=== PATIENT | female | born 1960 | race Two or more races ===

== ENCOUNTER → 2020-03-14 15:36 | Outpatient (BNVA) | payer OTHER, SELFPAY | PROVIDERS: PCP Internal Medicine; Visit Provider Physician Assistant | DX: Z76.89 Persons encountering health services in other specified circumstances (principal) ==

== ENCOUNTER → 2020-03-15 08:09 | Outpatient (BNVA) | payer OTHER, SELFPAY | PROVIDERS: PCP Internal Medicine; Visit Provider Surgery | DX: Z76.89 Persons encountering health services in other specified circumstances (principal) ==

== ENCOUNTER 2020-03-26 09:46 | Outpatient (REF) | payer OTHER, SELFPAY ==
[2020-03-26 10:48] LABS: MANUAL DIFF FLAG NO
[2020-03-26 10:53] LABS: Basophils Absolute Auto 0.1 X10*3/uL (0.0-0.2); Basophils Percent Auto 0.8 % (0-2); Eosinophils Absolute Auto 0.2 X10*3/uL (0.0-0.4); Eosinophils Percent Auto 2.3 % (0-4); Hematocrit 40.6 % (37-47); Hemoglobin 12.9 g/dl (12.0-16.0); Imm Gran Abs Auto 0.02 X10*3/uL (0.00-0.03); Imm Gran Pct Auto 0.3 % (0.0-0.4); Lymphocytes Absolute Auto 2.6 X10*3/uL (1.2-4.9); Lymphocytes Percent Auto 33.3 % (20-40); Mean Corpuscular HGB Conc 31.8 g/dl (31.0-35.0); Mean Corpuscular Hemoglobin 27.2 pg (27.0-33.0); Mean Corpuscular Volume 85.7 fL (80-98); Mean Platelet Volume 11.6 fL (9.4-12.3); Monocytes Absolute Auto 0.6 X10*3/uL (0.1-1.2); Monocytes Percent Auto 7.5 % (2-11); Neutrophils Absolute Auto 4.3 X10*3/uL (2.0-8.3); Neutrophils Percent Auto 55.8 % (45-73); Platelet Count 223 X10*3/uL (160-400); Red Blood Count 4.74 X10*6/uL (4.20-5.50); Red Cell Distribution Width 15.1 % (11.0-16.0); White Blood Count 7.8 X10*3/uL (4.8-10.8)
--- NOTE | 2020-03-26 10:57 | ECG_ITS ---
Test Reason : MORBID OBESITY Blood Pressure : / mmHG Vent. Rate : 066 BPM Atrial Rate : 066 BPM P-R Int : 160 ms QRS Dur : 100 ms QT Int : 406 ms P-R-T Axes : 047 012 049 degrees QTc Int : 425 ms Normal sinus rhythm Normal ECG No previous ECGs available Referred By: Lux Ocampo Electronically Signed By:Kodi Millan
--- NOTE | 2020-03-26 11:07 | XR_ITS ---
EXAMINATION: XR CHEST CLINICAL INFORMATION: Obesity COMPARISON: None TECHNIQUE: 2 views of the chest were obtained. FINDINGS: The cardiac and mediastinal contours are normal. The lungs are clear. There is no pleural effusion or pneumothorax. There are degenerative changes of the spine. XR/XR chest 2V IMPRESSION: Unremarkable examination.
[2020-03-26 11:32] LABS: Estimated Average Glucose 123 mg/dL; Hemoglobin A1c % 5.9 %
[2020-03-26 11:44] LABS: Alanine Aminotransferase 26 U/L (0-31); Albumin Level 4.2 g/dL (3.5-5.0); Alkaline Phosphatase 67 U/L (39-117); Anion Gap 15 (12-20); Aspartate Amino Transferase 18 U/L (5-31); Bilirubin Total 0.3 mg/dL (0.0-1.0); Blood Urea Nitrogen 18 mg/dL (9-16); C Reactive Protein 1.25 mg/dL (< or = 0.50); Carbon Dioxide 27 mmol/L (22-29); Chloride 106 mmol/L (96-108); Cholesterol 168 mg/dL; Estimated Glomerular Filt Rate > 60; Glucose Random 96 mg/dL (60-115); HDL Cholesterol 52 mg/dL; LDL Cholesterol Calculated 106 mg/dl; Potassium 4.8 mmol/l (3.3-5.1); Sodium 143 mmol/L (135-145); Total Protein 7.2 g/dL (6.5-8.0); Triglycerides 52 mg/dL
[2020-03-26 12:01] LABS: Folate 13.4 ng/mL (> or = 4.0); Vitamin B12 628 pg/mL (200-900)
[2020-03-26 12:05] LABS: Ferritin 84 ng/mL (10-250); TSH reflex Free T4 2.64 mIU/mL (0.32-4.0); Vitamin D 25-OH Total 26.1 ng/mL (>30)
[2020-03-27 17:52] LABS: Insulin Level Total 24.9 uIU/mL
[2020-03-28 11:32] LABS: Calcium (PTHI) 8.9 mg/dL (8.6-10.4); PTHI 58 pg/mL (14-64)
[2020-03-28 16:17] LABS: H Pylori Breath Test NOT DETECTED (NOT DETECTED)
[2020-03-29 19:56] LABS: Zinc 89 mcg/dL (60-130)
[2020-03-30 23:56] LABS: Vitamin A 31 mcg/dL (38-98)
[2020-03-31 11:02] LABS: Vitamin B1 9 nmol/L (8-30)
== END 2020-03-26 09:47 | disposition home or self-care (01) ==
LOC: HO.LAB 09:46
PROVIDERS: Visit Provider Surgery
DX: E66.01 Morbid (severe) obesity due to excess calories (principal); E03.9 Hypothyroidism, unspecified; I10 Essential (primary) hypertension
CPT/HCPCS: 36415; 71046; 80053; 80061; 82306; 82607; 82728; 82746; 83013; 83036; 83525; 83970; 84425; 84443; 84590; 84630; 85025; 86140; 93005; 99211

== ENCOUNTER 2020-03-28 08:12 | Outpatient (REF) | payer OTHER, SELFPAY ==
--- NOTE | 2020-03-28 08:16 | US_ITS ---
EXAMINATION: US COMPLETE ABDOMEN WITH LIVER ELASTOGRAPHY CLINICAL INFORMATION: Morbid/severe obesity COMPARISON: None. TECHNIQUE: Real-time imaging of the abdominal viscera. Noninvasive ultrasound liver fibrosis assessment is performed using Rosa ElastPQ point quantification shear wave elastography (pSWE) with a 5 MHz transducer. Multiple elastography samples are obtained. FINDINGS: PANCREAS: The visualized pancreatic head and body are normal in appearance. The remainder of the pancreas is obscured from visualization by the overlying bowel gas. ABDOMINAL AORTA: The proximal, middle, and distal aortic segments are normal in caliber. INFERIOR VENA CAVA: Visualized portions are normal. LIVER: Liver echotexture is increased probably representing fatty infiltration. There is a focal hypoechoic area adjacent characteristic location of focal fatty sparing. The liver is normal in contour. No focal lesion or intrahepatic biliary duct dilatation. The right lobe measures 17 cm in length. The left lobe measures 13 cm in length. The main portal vein is patent with appropriate hepatopedal pedal flow. Shear wave elastography provides a median stiffness of 1.5 m/s (reference: normal median stiffness is 0.81 - 1.22 m/s). The IQR/median stiffness to assess sampling precision is 0.3 (reference: optimal IQR/median stiffness is under 0.3). GALLBLADDER: Normal. The gallbladder is physiologically distended without evidence of stones, sludge, polyps, wall thickening or pericholecystic fluid. COMMON BILE DUCT: Normal in caliber measuring 0.4 cm in diameter. RIGHT KIDNEY: Normal. No hydronephrosis. No renal calculi or focal parenchymal lesions. The kidney measures 13.3 cm in maximum dimension. LEFT KIDNEY: There are 3 left renal cysts, largest measuring 3 cm in the lower pole. No hydronephrosis. No renal calculi or focal parenchymal lesions. The kidney measures 11.6 cm in maximum dimension. SPLEEN: Normal. The spleen measures 9 cm in maximum dimension. FREE FLUID: None. US/US abdomen comp w elastography IMPRESSION: 1. Impression: echogenic liver probably representing fatty infiltration. Left renal cyst. Limited visualization of the tail the pancreas. 2. Elastography: Metavir score F2 to F3 suggestive of [id number] increased risk of developing liver fibrosis
--- NOTE | 2020-03-28 08:16 | FL_ITS ---
EXAMINATION: XR GI SERIES CLINICAL INFORMATION: Moderate/severe obesity due to excess calories. COMPARISON: None TECHNIQUE: Routine upper GI exam was performed. FINDINGS: Following oral administration of thick barium and effervescent granules there is normal propagation bolus from the oral cavity through the pharynx, esophagus into stomach without any evidence of obstruction or narrowing. No intraluminal filling defects seen. On placing patient supine and prone lying there is a small sliding hiatal hernia with large gastroesophageal reflux extending to the upper esophagus. The course, caliber and peristalsis of the stomach and the duodenal bulb is normal. The mucosal pattern of stomach and the duodenum is normal. FLUOROSCOPY TIME: 2.1 minutes DOSE AREA PRODUCT: 64.9 uGy-m2 (microgray-meter squared) FL/FL upper GI series IMPRESSION: Small sliding hiatal hernia with a large gastroesophageal reflux.
== END 2020-03-28 08:13 | disposition home or self-care (01) ==
LOC: HO.US 08:12
PROVIDERS: Visit Provider Surgery
DX: Z01.818 Encounter for other preprocedural examination (principal); E03.9 Hypothyroidism, unspecified; E66.01 Morbid (severe) obesity due to excess calories; K21.9 Gastro-esophageal reflux disease without esophagitis; I10 Essential (primary) hypertension
CPT/HCPCS: 74240; 76705; 76981

== ENCOUNTER → 2020-04-06 08:24 | Outpatient (BNVA) | payer OTHER, SELFPAY | PROVIDERS: Visit Provider Surgery ==

== ENCOUNTER → 2020-04-13 08:28 | Outpatient (BNVA) | payer OTHER, SELFPAY | PROVIDERS: Visit Provider Dietitian, Registered ==

== ENCOUNTER → 2020-04-25 08:21 | Outpatient (BNVA) | payer OTHER, SELFPAY | PROVIDERS: Visit Provider Dietitian, Registered ==

== ENCOUNTER → 2020-05-02 08:14 | Outpatient (BNVA) | payer OTHER, SELFPAY | PROVIDERS: Visit Provider Surgery ==

== ENCOUNTER → 2020-06-06 08:14 | Outpatient (BNVA) | payer OTHER, SELFPAY | PROVIDERS: Visit Provider Surgery ==

== ENCOUNTER → 2020-07-02 08:19 | Outpatient (BNVA) | payer OTHER, SELFPAY | PROVIDERS: Visit Provider Surgery ==

== ENCOUNTER → 2020-07-27 08:33 | Outpatient (BNVA) | payer OTHER, SELFPAY | PROVIDERS: Visit Provider Surgery ==

== ENCOUNTER → 2020-08-03 15:07 | Outpatient (BNVA) | payer OTHER, SELFPAY | PROVIDERS: Visit Provider Physician Assistant ==

== ENCOUNTER → 2020-08-15 08:29 | Outpatient (BNVA) | payer OTHER, SELFPAY | PROVIDERS: PCP Nurse Practitioner Family; Referring Provider Nurse Practitioner Family; Visit Provider Surgery | DX: Z01.818 Encounter for other preprocedural examination (principal); E66.01 Morbid (severe) obesity due to excess calories; Z68.41 Body mass index [BMI] 40.0-44.9, adult | CPT/HCPCS: 99212 ==

== ENCOUNTER → 2020-09-14 07:26 | Outpatient (BNVA) | payer OTHER, SELFPAY | PROVIDERS: PCP Nurse Practitioner Family; Visit Provider Surgery ==

== ENCOUNTER → 2020-10-05 13:45 | Outpatient (BNVA) | payer OTHER, SELFPAY | PROVIDERS: PCP Nurse Practitioner Family; Visit Provider Physician Assistant ==

== ENCOUNTER → 2020-10-22 07:22 | Outpatient (BNVA) | payer OTHER, SELFPAY | PROVIDERS: Visit Provider Surgery ==

== ENCOUNTER → 2020-10-30 09:02 | Outpatient (BNVA) | payer OTHER, SELFPAY | PROVIDERS: Visit Provider Physician Assistant ==

== ENCOUNTER 2020-11-01 07:45 | Inpatient (IN) | payer OTHER, SELFPAY ==
[2020-10-09 09:58] VITALS: BMI 41.3
[2020-10-30 09:14] LABS: MANUAL DIFF FLAG NO
[2020-10-30 09:22] LABS: Basophils Percent Auto 0.7 % (0-2); Eosinophils Absolute Auto 0.1 X10*3/uL (0.0-0.4); Eosinophils Percent Auto 1.9 % (0-4); Hematocrit 39.6 % (37-47); Hemoglobin 12.8 g/dl (12.0-16.0); Imm Gran Abs Auto 0.02 X10*3/uL (0.00-0.03); Imm Gran Pct Auto 0.3 % (0.0-0.4); Lymphocytes Percent Auto 34.4 % (20-40); Mean Corpuscular HGB Conc 32.3 g/dl (31.0-35.0); Mean Corpuscular Hemoglobin 27.5 pg (27.0-33.0); Mean Platelet Volume 10.7 fL (9.4-12.3); Monocytes Absolute Auto 0.4 X10*3/uL (0.1-1.2); Monocytes Percent Auto 7.3 % (2-11); Neutrophils Absolute Auto 3.2 X10*3/uL (2.0-8.3); Neutrophils Percent Auto 55.4 % (45-73); Platelet Count 209 X10*3/uL (160-400); Red Blood Count 4.66 X10*6/uL (4.20-5.50); Red Cell Distribution Width 15.2 % (11.0-16.0); White Blood Count 5.8 X10*3/uL (4.8-10.8)
[2020-10-30 09:26] LABS: INTERNATIONAL NORM RATIO 1.2 (0.9-1.1); Prothrombin Time 13.5 SEC (9.9-13.0)
[2020-10-30 09:39] LABS: Alanine Aminotransferase 24 U/L (0-31); Albumin Level 4.2 g/dL (3.5-5.0); Alkaline Phosphatase 66 U/L (39-117); Anion Gap 11 (12-20); Aspartate Amino Transferase 20 U/L (5-31); Bilirubin Total 0.7 mg/dL (0.0-1.0); Blood Urea Nitrogen 12 mg/dL (9-16); C Reactive Protein 1.04 mg/dL (< or = 0.50); Calcium 9.7 mg/dL (8.4-10.2); Carbon Dioxide 28 mmol/L (22-29); Chloride 105 mmol/L (96-108); Cholesterol 176 mg/dL; Creatinine Clr Calc Pharmacy 102.8; Estimated Glomerular Filt Rate > 60; Glucose Random 87 mg/dL (60-115); HDL Cholesterol 44 mg/dL; LDL Cholesterol Calculated 119 mg/dl; Potassium 4.6 mmol/L (3.3-5.1); Sodium 139 mmol/L (135-145); Total Protein 7.3 g/dL (6.5-8.0); Triglycerides 65 mg/dL
[2020-10-30 10:00] LABS: TSH reflex Free T4 2.02 uIU/mL (0.32-4.0)
[2020-10-30 14:28] LABS: Estimated Average Glucose 108 mg/dL; Hemoglobin A1c % 5.4 %
--- NOTE | 2020-10-31 08:55 | HO.ANESPROP2 ---
Documented by User: Rocio Weinberg NP 10/31/20 08:56 HPI - Anesthesia Eval Consult details Narrative: 60yo F for Gastrectomy Sleeve, EGD, Poss Diaphragmatic Hernia, Poss Ventral Hernia, Poss open PMFSH Active Problems Active Problems: All Active Problems (Updated 10/09/20 @ 10:04 by Emely Flowers, RN) Vitamin A deficiency (Acute) Adjustment disorder, unspecified (Acute) Obesity (Acute) BMI 39.0-39.9,adult (Acute) BMI 38.0-38.9,adult (Acute) DJD (degenerative joint disease) (Acute) Hypothyroidism (Acute) Hypertension (Acute) Non-insulin dependent diabetes mellitus (Acute) Morbid obesity (Acute) Past Medical History Medical History (Updated 10/09/20 @ 10:04 by Emely Flowers RN) COVID-19 COVID-19 vaccine series completed DJD (degenerative joint disease) Hypertension Hypothyroidism Morbid obesity Non-insulin dependent diabetes mellitus Family History Family History Mother No problems noted. Father No problems noted. Sister No problems noted. Sister No problems noted. Brother No problems noted. Brother No problems noted. Son No problems noted. Daughter Diabetes Obesity Daughter No problems noted. Surgical History Surgical History (Updated 10/09/20 @ 09:33 by Emely Flowers RN) History of tubal ligation Hx of section Hx of colonoscopy Hx of knee surgery Hx of tonsillectomy Social History Social History Are you a primary clinical manager home care to a significant other at home: No Do you presently have visiting nurse or other home services: No Alcohol intake: current Alcohol intake frequency: holidays/special occasions only Patient Tobacco Use Status: Never used Tobacco Use of substances other than those prescribed or required for medical reasons: No Have you been hit, kicked, punched, or otherwise hurt by someone within the past year? If so, by whom?: No Are you DNR?: No Advance Directives: No Advance Directives Information Provided: No Advance Directives on File: No Recently lost weight without trying: No How much weight loss: 24-33 pounds Eating poorly because of decreased appetite: No Nutrition screen score: 3 Nutrition Risks: No Nutritional Risk Patient : No Meds Allergies Allergy/AdvReac Type Severity Reaction Status Date / Time oxycodone [From Percocet] AdvReac Nausea and Verified 11/01/20 08:46 Vomiting Home Medications Medication Instructions Recorded Confirmed Last Taken Type levothyroxine 25 mcg capsule 25 mcg PO DAILY 03/15/20 11/01/20 11/01/20 06:00 History lisinopril 5 mg tablet 5 mg PO DAILY 03/15/20 10/22/20 11/01/20 07:30 History metformin 500 mg tablet 500 mg PO DAILY 03/15/20 10/22/20 11/01/20 07:30 History Exam Exam Date and Time: October 31, 2020 0855 Height,Weight and Vital Signs: Height 5 ft 4.5 in Weight 111.13 kg Pertinent Lab Results Pertinent Lab Results: Laboratory Tests 10/30/20 10/30/20 10/30/20 08:45 08:45 08:45 WBC 5.8 RBC 4.66 Hgb 12.8 Hct 39.6 MCV 85.0 MCH 27.5 MCHC 32.3 RDW 15.2 Plt Count 209 MPV 10.7 Immature Gran % (Auto) 0.3 Neut % (Auto) 55.4 Lymph % (Auto) 34.4 [place] % (Auto) 7.3 Eos % (Auto) 1.9 Baso % (Auto) 0.7 Lymph # (Auto) 2.0 [place] # (Auto) 0.4 Eos # (Auto) 0.1 Baso # (Auto) 0.0 Abs Immat Gran (auto) 0.02 Absolute Neuts (auto) 3.2 Absolute Nucleated RBC 0.000 Nucleated RBC % (auto) 0.0 PT 13.5 H INR 1.2 H APTT 37.0 Sodium 139 Potassium 4.6 Chloride 105 Carbon Dioxide 28 Anion Gap 11 L BUN 12 Creatinine 0.71 Estim Creat Clear Calc 102.8 Estimated GFR > 60 Random Glucose 87 Estimat Average Glucose Hemoglobin A1c % Calcium 9.7 D Total Bilirubin 0.7 AST 20 ALT 24 Alkaline Phosphatase 66 C-Reactive Protein 1.04 H Total Protein 7.3 Albumin 4.2 Triglycerides 65 Cholesterol 176 LDL Cholesterol, Calc 119 HDL Cholesterol 44 TSH 2.02 Blood Type Antibody Screen 10/30/20 10/30/20 08:45 08:45 WBC RBC Hgb Hct MCV MCH MCHC RDW Plt Count MPV Immature Gran % (Auto) Neut % (Auto) Lymph % (Auto) [place] % (Auto) Eos % (Auto) Baso % (Auto) Lymph # (Auto) [place] # (Auto) Eos # (Auto) Baso # (Auto) Abs Immat Gran (auto) Absolute Neuts (auto) Absolute Nucleated RBC Nucleated RBC % (auto) PT INR APTT Sodium Potassium Chloride Carbon Dioxide Anion Gap BUN Creatinine Estim Creat Clear Calc Estimated GFR Random Glucose Estimat Average Glucose 108 Hemoglobin A1c % 5.4 Calcium Total Bilirubin AST ALT Alkaline Phosphatase C-Reactive Protein Total Protein Albumin Triglycerides Cholesterol LDL Cholesterol, Calc HDL Cholesterol TSH Blood Type B Positive Antibody Screen NEGATIVE Narrative Narrative: EKG 03/2020 Vent. Rate : 066 BPM ? ? Atrial Rate : 066 BPM ?? P-R Int : 160 ms? QRS Dur : 100 ms ? ? QT Int : 406 ms ? ? ? P-R-T Axes : 047 012 049 degrees ?? QTc Int : 425 ms ? Normal sinus rhythm Normal ECG No previous ECGs available Assessment and Plan Assessment Anesthesia Assessment: Chart Reviewed Documented by User: Vashti Muñiz MD 11/01/20 09:19 [facility] Past Medical History Medical History (Updated 10/09/20 @ 10:04 by Emely Flowers RN) COVID-19 COVID-19 vaccine series completed DJD (degenerative joint disease) Hypertension Hypothyroidism Morbid obesity Non-insulin dependent diabetes mellitus Family History Family History Mother No problems noted. Father No problems noted. Sister No problems noted. Sister No problems noted. Brother No problems noted. Brother No problems noted. Son No problems noted. Daughter Diabetes Obesity Daughter No problems noted. Surgical History Surgical History (Updated 10/09/20 @ 09:33 by Emely Flowers RN) History of tubal ligation Hx of section Hx of colonoscopy Hx of knee surgery Hx of tonsillectomy Social History Social History Are you a primary clinical manager home care to a significant other at home: No Do you presently have visiting nurse or other home services: No Alcohol intake: current Alcohol intake frequency: holidays/special occasions only Patient Tobacco Use Status: Never used Tobacco Use of substances other than those prescribed or required for medical reasons: No Have you been hit, kicked, punched, or otherwise hurt by someone within the past year? If so, by whom?: No Are you DNR?: No Advance Directives: No Advance Directives Information Provided: No Advance Directives on File: No Recently lost weight without trying: No How much weight loss: 24-33 pounds Eating poorly because of decreased appetite: No Nutrition screen score: 3 Nutrition Risks: No Nutritional Risk Patient : No Meds Allergies Allergy/AdvReac Type Severity Reaction Status Date / Time oxycodone [From Percocet] AdvReac Nausea and Verified 11/01/20 08:46 Vomiting Home Medications Medication Instructions Recorded Confirmed Last Taken Type levothyroxine 25 mcg capsule 25 mcg PO DAILY 03/15/20 11/01/20 11/01/20 06:00 History lisinopril 5 mg tablet 5 mg PO DAILY 03/15/20 10/22/20 11/01/20 07:30 History metformin 500 mg tablet 500 mg PO DAILY 03/15/20 10/22/20 11/01/20 07:30 History Exam Airway Mallampati Class: III TM Dist: >3cm Neck ROM: Full
--- NOTE | 2020-10-31 19:56 | MHC.SHP ---
Pre-Procedural Eval Section A Date of Service: 10/31/20 The patient is an INPATIENT: Yes The History & Physical has been completed within 30 days and I have reviewed it.: No Section B Chief Complaint: Morbid Severe Obesity Relevant Family History (Specify if Yes): No Relevant Social History: None Present Medications: see Short Stay Collaborative assessment Medical History: No relevant PMH History of Previous Operations: No relevant previous surgery Allergies: Allergies Allergy/AdvReac Type Severity Reaction Status Date / Time oxycodone [From Percocet] AdvReac Nausea and Verified 10/22/20 13:58 Vomiting Review of Systems Sugical H&P ROS: Negative: Constitution, Cardiovascular, Respiratory, Neurological, Psychiatric, Hem-Onc, Allergic/Immunologic, Gastrointestinal, Genitourinary, Musculoskeletal, Integumentary, Endocrine and Eyes/Ears/Nose/Throat Exam Surgical H&P Exam: Normal: HEENT, Normal: Heart, Normal: Lungs, Normal: Extremities, Normal: Abdomen, Normal: Skin and Normal: Neurological Plan Diagnosis/Plan: Unchanged I have reviewed the history and physical and performed a pertinent physical examination on my patient. No changes have occurred unless specified.
[2020-10-31 22:36] LABS: Insulin Level Total 10.2 uIU/mL
[2020-11-01] VITALS (13 sets, daily range): BP systolic 128–151; BP diastolic 54–85; PULSE 62–99; RESP 16–26; TEMP 36.1–36.8; O2SAT 97–100
[2020-11-01 09:15] LABS: COVID-19 Test Negative (Negative); IDNOW Serial# 55D5AD1C
[2020-11-01 09:27] LABS: Glucose, Whole Blood 62 mg/dL (60-115)
[2020-11-01] MEDS: Lactated Ringers 1,000 ML 999 ML IV (09:37)
[2020-11-01] MEDS: Dextrose 5 % 250 ML 999 ML IV (09:37)
[2020-11-01 10:32] LABS: Glucose, Whole Blood 100 mg/dL (60-115)
--- NOTE | 2020-11-01 10:42 | PC.NURSE ---
Patient arrived to [facility]. Blood Sugar on arrival was 62. Patient asymptomatic. Anesthesia MD Dr. Muñiz made aware. New order for D5 wide open. See new orders. PRN angio established and D5 hung. BS retaken before going into OR. Blood Sugar 100. Patient remains asymptomatic. Dr. Muñiz made aware.
[2020-11-01 13:58] LABS: Glucose, Whole Blood 132 mg/dL (60-115)
--- NOTE | 2020-11-01 14:00 | P.DS_ITS ---
DS: Providers Provider Date of Service: 11/02/20 Date of admission: 11/01/20 07:45 Primary care physician: Unknown Physician DS: Summary Hospital Course Hospital Course: ADMITTING DIAGNOSIS: morbid obesity, hypothyroidism, hypertension, NIDDM DISCHARGE DIAGNOSIS: same, s/p laparoscopic sleeve gastrectomy and repair diaphragmatic hernia PAST SURGICAL HISTORY: PROCEDURE: upper endoscopy, laparoscopic sleeve gastrectomy and repair of diaphragmatic hernia hernia DISCHARGE SUMMARY: History of Present Illness: The patient is a 60 year-old woman with a BMI of 46 kg/m2 and associated co- morbidities as described above. The patient had extensive work-up,lost 28.1 lbs preoperatively and was electively scheduled for laparoscopic, possible open sleeve gastrectomy and gastropexy. Risks and complications of the surgery were discussed with the patient in advance, particularly the possibility of , pulmonary embolism, anastomotic leak, bleeding, bowel injury, GERD, cardiac, renal or pulmonary complications. The patient understood all the risks and was in agreement with the surgical plan. Hospital Course: The patient underwent an uneventful laparoscopic sleeve gastrectomy with gastropexy and repair of diaphragmatic hernia on the day of admission. Postoperatively, the patient was transferred to the surgical floor. The patient received IV Acetaminophen and IV dilaudid for pain control. Patient was started on bariatric phase 1 diet POD #0. On postoperative day one, the patient was feeling well without nausea, vomiting, fevers, or tachycardia. The patient had some mild incisional pain and the abdomen was soft. On the morning of postoperative day one, the patient was continued on 1 ounce of water or ice every half hour. During the day, the patient did fairly well, having some incisional pain, but able to ambulate adequately and to tolerate liquids well. Since the patient is doing well, we decided that the patient was ready to be discharged. The patient was given instructions to follow-up with me next week and to call my office for any fever over 101, persistent abdominal pain, nausea, vomiting, GERD, symptoms of DVT such as calf tenderness, or leg swelling, or pulmonary embolism such as chest pain or shortness of breath. The patient was also instructed to drink 40-60 ounces of liquids per day using the 1-ounce cups. The patient had been given prescriptions for Tylenol for pain, Zofran prn for nausea, and pantoprazole and carafate previously. The patient was encouraged to ambulate and use the incentive spirometer. The patient was allowed to shower, but no baths, and encouraged to stay active at home. All of these instructions were given to the patient personally. All questions were answered and the patient understood all instructions, the instructions were also given to the patient in print. Time Spent with Patient Time attestation: Total time spent providing and/or coordinating discharge services: Discharge coordination time: Less than 30 minutes Quality: Stroke Does the patient have a stroke diagnosis?: No Physical Exam Vital Signs: Vital Signs: Last Vital Signs Temp 97.3 F 11/01/20 09:07 Pulse 62 11/01/20 09:07 Resp 16 11/01/20 09:07 BP 128/54 L 11/01/20 09:07 Pulse Ox 99 11/01/20 09:07 Body Mass Index 41.3 DS: Data Data Completed and Pending Pending studies at discharge: Pending at discharge 11/01/20 13:27 Surgical [PTH] Routine Labs on day of discharge: Laboratory Results - last 24 hr 10/30/20 11/01/20 11/01/20 08:45 08:43 08:56 POC Glucose 62 Total Insulin 10.2 COVID-19 ([facility]) Negative COVID-19 Clin Com See Note 11/01/20 11/01/20 10:28 13:54 POC Glucose 100 132 H Total Insulin COVID-19 ([facility]) COVID-19 Clin Com Discharge Plan Discharge Anticipated Discharge Date/Time: 11/02/20 10:56 Patient Disposition: Home, Self-Care Discharge Diagnosis: s/o sleeve gastrectomy Referrals: Physician,Unknown [Physician] - 1 Week Discharge Medications: Continued lisinopril 20 mg tablet 1 tab PO DAILY RF: 0 levothyroxine 50 mcg tablet 1 tab PO DAILY RF: 0 pantoprazole 40 mg tablet,delayed release (DR/EC) 40 mg PO DAILY Qty: 30 RF: 2 Discontinued metformin 500 mg tablet 500 mg PO BID RF: 0 Discharge Orders: Discharge Order (Routine); Ordered 11/02/20 Ordered By: Lux Ocampo Diet: other Activity on Discharge: No heavy lifting Stand Alone Forms: Patient Portal Discharge page Care Plan Goals: weight loss Health Concerns: morbid obesity Plan of Treatment: No tub baths, sex or returning to work until discussed at first post op appointment. No exercise, alcohol, tobacco or illegal drug use. Continue to use incentive spirometer hourly while awake. Walk in home for 5- 10 minutes every 2 hours during the first week. Continue phase 1 diet today and start phase 2 diet tomorrow morning. Follow all instructions in the bariatric handbook and call with any questions. The patient's medical history has been reviewed and they are considered low risk for post op DVT and therefore DVT prophylaxis is not considered necessary. Travel after surgery was reviewed. The patient has not disclosed any travel plans during the first 30 days after surgery and they have been advised that within the first 30 days after surgery any bus, plane, train or car travel over 2 hours in duration is contraindicated due to the possibility of developing blood clots from immobility. Any travel, needs to include periods of ambulation of 10 minutes in duration every 2 hours. The patient was instructed to discuss any plans for travel during this period with their bariatric surgeon. Assessment: stable, post op sleeve gastrectomy Discharge Date/Time: 11/02/20 10:12
[2020-11-01] MEDS: Famotidine/PF 20 MG/2 ML VIAL IVPUSH ×2 (14:25→20:51)
[2020-11-01] MEDS: Lactated Ringers 1,000 ML 125 ML IVCONT ×2 (14:28→21:37)
[2020-11-01 14:40] LABS: Hematocrit 37.8 % (37-47); Hemoglobin 12.3 g/dl (12.0-16.0)
[2020-11-01 15:22] LABS: Anion Gap 17 (12-20); Blood Urea Nitrogen 12 mg/dL (9-16); Carbon Dioxide 18 mmol/L (22-29); Chloride 108 mmol/L (96-108); Creatinine Clr Calc Pharmacy 117.6; Estimated Glomerular Filt Rate > 60; Glucose Random 121 mg/dL (60-115); Potassium 3.7 mmol/L (3.3-5.1); Sodium 139 mmol/L (135-145)
[2020-11-01 15:29] LABS: Calcium 8.9 mg/dL (8.4-10.2)
[2020-11-01] MEDS: ceFAZolin Sodium/Dextrose,Iso 2 GM/50 ML PIGGYBACK IV (17:05)
--- NOTE | 2020-11-01 20:13 | PM.PNGS ---
Subjective Subjective Date of Service: 11/02/20 Interval history: Patient has mild incisional pain, but was able to ambulate and use the incentive spirometer. She is tolerating phase 1 bariatric diet Physical Exam Vital Signs: Vital Signs: Last Vital Signs Temp 96.9 F 11/01/20 19:25 Pulse 76 11/01/20 19:25 Resp 19 11/01/20 19:25 BP 146/76 H 11/01/20 19:25 Pulse Ox 100 11/01/20 19:25 Body Mass Index 41.3 GI: Inspection: Yes normal to inspection and Yes incision (clean, dry and intact) Extrem: Right lower extremity: normal to inspection (no calf tenderness) Left lower extremity: normal to inspection (no calf tenderness) Procedures Date of Service Date of Service: 11/02/20 Progress Note: A&P Assessment and plan (1) S/P laparoscopic sleeve gastrectomy: Status: Acute Assessment and Plan: s/p laparoscopic sleeve gastrectomy, lysis of adhesions repair of diaphragmatic hernia, and gastropexy Doing well Check am labs. If OK, will discharge home? (2) Status post repair of paraesophageal diaphragmatic hernia: Status: Acute (3) Diaphragmatic hernia: Status: Acute (4) Obesity: Status: Acute (5) BMI 38.0-38.9,adult: Status: Acute (6) Hypothyroidism: Status: Acute (7) Hypertension: Status: Acute (8) Non-insulin dependent diabetes mellitus: Status: Acute (9) DJD (degenerative joint disease): Status: Acute (10) GERD (gastroesophageal reflux disease): Status: Acute (11) Steatosis, liver: Status: Acute Fall Risk Details Current Medications: Current Medications Generic Name Dose Route Start Last Admin Trade Name Freq PRN Reason Stop Dose Admin Famotidine 20 mg 11/01/20 14:15 11/01/20 14:25 Famotidine/Pf 20 Mg/2 Ml Vial IVPUSH 20 mg BID CHYNA Administration Hydromorphone HCl 0.25 mg 11/01/20 16:27 Hydromorphone Hcl 0.5 Mg/0.5 Ml Syringe IVPUSH Q4H PRN Pain, Severe (Pain Scale 7-10) Protocol Lactated Ringer's 1,000 mls @ 125 mls/hr 11/01/20 14:15 11/01/20 14:28 Lr IVCONT 125 mls/hr .Q8H CHYNA Administration Acetaminophen 1,000 mg in 100 mls @ 16.7 mls/hr 11/01/20 16:27 11/01/20 17:53 Ofirmev IV 16.7 mls/hr .Q6H CHYNA Administration Levothyroxine Sodium 50 mcg 11/02/20 06:30 Levothyroxine Sodium 50 Mcg Tablet PO DAILY@0630 [facility] Lisinopril 20 mg 11/02/20 09:00 Lisinopril 20 Mg Tablet PO DAILY [facility] Protocol Metoclopramide HCl 10 mg 11/01/20 16:27 Metoclopramide Hcl 10 Mg/2 Ml Vial IVPUSH Q6H PRN Nausea Ondansetron HCl 4 mg 11/01/20 21:00 Ondansetron Hcl 4 Mg/2 Ml Vial IVPUSH Q8H CHYNA Sodium Chloride 3 ml 11/01/20 16:27 11/01/20 16:53 0.9 % Sodium Chloride Flush 3 Ml Syringe IVFLUSH Not Given QSHIFT [facility] Time Spent With Patient Time: Total time spent is greater than 50% in coordination of care (as documented) at patient's floor/unit and/or counseling patient: Time with patient: less than 15 minutes Quality Stroke Does the patient have a stroke diagnosis?: No VTE Prior VTE?: No VTE Risk Level:: Surgical - moderate VTE Device Contraindication: N/A - Device Ordered VTE Drug Contraindication: Treatment Not Indicated
--- NOTE | 2020-11-01 20:16 | P.BOP_ITS ---
Brief Operative Note Date of Service: 11/01/20 Pre-op diagnosis: Severe obesity and comorbidities (see below) Post-op diagnosis: same (& diaphragmatic hernia and abdominal adhesions) Procedure: INITIAL PATIENT BMI ON PRESENTATION AT OUR OFFICE: 46 kg/m2 LAST BMI BEFORE SURGERY: 38.8 kg/m2 COMORBIDITIES: non-insulin dependent diabetes, diaphragmatic hernia, GERD, hypertension, hypothyroidism, DJD, liver steatosis, liver fibrosis The patient participated in an intensive weekly lifestyle ?intervention and exercise program during which the patient ?has lost between the initial office visit and the last preoperative visit 23.1lbs, or 8.48% of initial actual body weight. The patient met the BMI-criteria for bariatric surgery based on the BMI on initial presentation. The patient should not be penalized for achieving such weight loss because ?it is not sustainable long-term without surgical intervention and it was achieved in preparation for bariatric surgery ?under my direction and based on my published research ([email or web address] and? [email or web address] ) ?that a 10% preoperative weight loss improves long-term weight loss after surgery and reduces perioperative complications.? Insurance carriers such as [facility] have endorsed my recommendations ?and have included in their policies criteria to include a 10% preoperative weight loss requirement. PROCEDURE: Esophago-gastroscopy, laparoscopic repair of incarcerated diaphragmatic hernia, laparoscopic lysis of adhesions, laparoscopic sleeve gastrectomy and laparoscopic gastropexy INDICATIONS: This is a 60 year-old female who was electively scheduled for laparoscopic, possibly open sleeve gastrectomy. The risks and complications of the procedure were discussed with the patient in advance, particularly the possibility of ; pulmonary embolism; staple line leak; bleeding; GERD; cardiac, pulmonary, or renal complications; as well as long-term problems such as insufficient weight loss, vitamin deficiency, strictures, or ulcers. The patient understood all the risks, and was in agreement to proceed with surgery. DESCRIPTION OF PROCEDURE: After informed consent was obtained from the patient, the patient was given preoperative antibiotics, and was transferred to the operating room. After successful induction of general anesthesia, a Graham catheter and pneumatic c ompressive devices were placed on both lower extremities. An upper endoscopy was performed next. The oropharynx and esophagus appeared to be within normal limits. There was a diaphragmatic hernia present of moderate size consistent with the findings of the preoperative upper GI. The stomach was entered. Then after all fluid and air were suctioned and the stomach was fully decompressed, the scope was withdrawn and secured in the mid esophagus. The patient was then prepped and draped in the usual sterile manner, and abdominal access was established at the right upper quadrant with the Ruth t echnique. A 12 mm blunt port was inserted, and the abdomen was insufflated with CO2 to a pressure of 15 mmHg. Under direct visualization, additional ports were placed, specifically two 5 mm Versi-step ports to the left upper quadrant, and a 5 mm Versi-Step port to the right upper quadrant. 1% lidocaine plain was used to infiltrate all port sites as well as all fascia defects. Using the EndoClose suture passer device, we placed a #1 Polysorb tie across the falciform ligament in order to retract it up against the abdominal wall and prevent injury of the ligament with our instruments during the procedure. Following that, the patient was placed in a steep reverse Trendelenburg position. An additional 5 mm port was placed to the right flank for the Mediflex retractor that was used to retract the left lobe of the liver. The gastro-esophageal fat pad was opened with the ultrasonic device (Thunderbeat, Olympus) and the anterior esophagus and hiatus were exposed. The angle of His was opened with the ultrasonic device the fundus of the stomach from any diaphragmatic and splenic attachments. I then opened the gastrocolic ligament between the transverse colon and the greater curvature of the stomach with the ultrasonic device to enter the lesser sac and facilitate the ligation of the short gastric vessels. I started at a mid-point along the greater curvature and using the Thunderbeat, all short gastric vessels were divided all the way to the angle of His until the left perfecto was completely dissected at its entirety. I then divided the gastro-colic ligament distally to a distance of about 3-4 cm proximal to the esophagus. There were extensive congenital adhesions between the pancreas and posterior gastric wall. Those were lysed completely with the ultrasonic device. Ad hesiolysis took approximately 45 min to complete. There was an obvious significant-sized hiatal hernia. I continued dissecting along the hiatus toward the left perfecto and the angle of His. I fully mobilized the fat pad that was incarcerated in the hernia. I then continued by dissecting even further into the posterior retro-esophageal space all the way to the angle of His. I continued to mobilize the esophagus into the mediastinum circumferentially. Both vagal nerves were seen and preserved. At that point, I was able to have at least 3 to 5 cm of esophagus into the abdomen.? After I completely mobilized the esophagus from both the left and right perfecto and I had a good mobilization of the esophagus circumferentially, I closed the hernia defect with three interrupted #0 Surgidac sutures using the Endo Stitch device, two of which were placed posterior and one anterior to the esophagus. ? The stomach was then divided transversely with three Endo SERA-45 puple and four SERA-60 articulating orange loads using the [employer] stapler and loads. Every effort was made that the gastric sleeve had a tubular shape and an even caliber throughout. Once the sleeve resection was completed, the staple line of the gastric sleeve was reinforced with Hemoclips. The resected stomach was retrieved without difficulty from the Ruth port. A gastropexy was then performed in order to prevent postoperative GERD and partial gastric volvulus. Several interrupted 2.0 Surgidac sutures were placed between the sleeve's staple line and the previously divided greater omentum and gastro-colic ligament using the Endo-Stitch device. ?An upper endoscopy was performed. There was no narrowing at the GE junction. The scope was easily advanced all the way to the pylorus which was clearly visualized. There was no narrowing anywhere and the sleeve's caliber was even throughout. The sleeve's staple line was inspected and there was no evidence of ischemia, bleeding or dehiscence. At that point the gastroscope was withdrawn from the patient?s mouth while we were decompressing the bowel and the stomach from any remaining air. I looked into the lesser sac to see how the sleeve was situating and it was situating well. There was no bleeding from the staple line, spleen, or short gastric vessels. The Mediflex retractor was removed, and the undersurface of the liver was inspected and there was no bleeding. The patient was placed in supine position. I closed the fascial defect of the 12 mm port site with a figure of eight #1 Polysorb suture. Then 100 cc 0.25 % Marcaine plain with 10 mg of Dexamethasone were used to infiltrate the fascial closure as well as all skin incisions. At this point, the abdomen was deflated, all ports were removed under direct vision, and no bleeding was noted from any of the port sites. The skin incisions were irrigated with saline and were closed with 4-0 absorbable monofilament sutures. Steri-Strips and OpSites were used to cover all incisions. The patient was extubated and was transferred in stable condition to the recovery room for further care. I was present and performed all lind parts of the procedure. Ms. Gomezson was the first responder. There were no residents to assist with this case. Alin Ocampo MD, PhD, FACS Surgeon: Lux Ocampo MD Anesthesia: GETA, local and other (TAP block) Was an Certified Ethical Hacker used for this Procedure?: Yes Certified Ethical Hacker: Tejal Oshea Estimated blood loss (mL): 10 IV fluids (mL): 3,000 Urine output (mL): 0 (No Graham to record) Pathology: other (Stomach) Condition: stable Disposition: PACU
[2020-11-01 20:33] LABS: Glucose, Whole Blood 132 mg/dL (60-115)
[2020-11-01] MEDS: ondansetron HCL 4 MG/2 ML VIAL IVPUSH (20:49)
[2020-11-02 03:19] VITALS: BP 140/63; PULSE 72; RESP 18; TEMP 36.4; O2SAT 95
[2020-11-02] MEDS: ondansetron HCL 4 MG/2 ML VIAL IVPUSH (06:10)
[2020-11-02] MEDS: Levothyroxine Sodium 50 MCG TABLET PO (06:10)
[2020-11-02 06:38] LABS: MANUAL DIFF FLAG NO
[2020-11-02 07:01] LABS: Basophils Percent Auto 0.1 % (0-2); Hematocrit 37.2 % (37-47); Hemoglobin 12.5 g/dl (12.0-16.0); Imm Gran Abs Auto 0.06 X10*3/uL (0.00-0.03); Imm Gran Pct Auto 0.5 % (0.0-0.4); Lymphocytes Absolute Auto 1.3 X10*3/uL (1.2-4.9); Lymphocytes Percent Auto 10.6 % (20-40); Mean Corpuscular HGB Conc 33.6 g/dl (31.0-35.0); Mean Corpuscular Hemoglobin 27.9 pg (27.0-33.0); Mean Platelet Volume 11.3 fL (9.4-12.3); Monocytes Absolute Auto 0.6 X10*3/uL (0.1-1.2); Monocytes Percent Auto 4.5 % (2-11); Neutrophils Absolute Auto 10.5 X10*3/uL (2.0-8.3); Neutrophils Percent Auto 84.3 % (45-73); Platelet Count 188 X10*3/uL (160-400); Red Blood Count 4.48 X10*6/uL (4.20-5.50); Red Cell Distribution Width 14.8 % (11.0-16.0); White Blood Count 12.4 X10*3/uL (4.8-10.8)
[2020-11-02] MEDS: Lactated Ringers 1,000 ML 125 ML IVCONT (07:30)
[2020-11-02 08:00] VITALS: BP 140/67; PULSE 57; RESP 18; TEMP 36.2; O2SAT 98
[2020-11-02 08:15] LABS: Anion Gap 18 (12-20); Blood Urea Nitrogen 8 mg/dL (9-16); Calcium 9.1 mg/dL (8.4-10.2); Carbon Dioxide 19 mmol/L (22-29); Chloride 105 mmol/L (96-108); Creatinine Clr Calc Pharmacy 108.9; Estimated Glomerular Filt Rate > 60; Glucose Random 118 mg/dL (60-115); Potassium 4.4 mmol/L (3.3-5.1); Sodium 138 mmol/L (135-145)
[2020-11-02] MEDS: Famotidine/PF 20 MG/2 ML VIAL IVPUSH (09:09)
[2020-11-02] MEDS: lisinopriL 20 MG TABLET PO (09:10)
--- NOTE | 2020-11-02 09:26 | MHC.CM.PN ---
CM MET WITH PT WHO REPORTS SHE LIVES WITH HER ADULT DAUGHTER AND IS INDEPENDENT AND WORKS AT [employer]. PT DENIES USING DME OR COMMUNITY/HOME SERVICES. PT DOES NOT HAVE A HCP AND DECLINES TO COMPLETE ONE TODAY. PT DOES NOT KNOW THE NAME OF HER PCP BUT SAYS SHE GOES TO [facility] IN [place]. PT IS CLEARED TO CT HOME TODAY WITH NO SERVICES FAMILY WILL TRANSPORT
--- NOTE | 2020-11-02 13:17 | HO.POSTANES ---
Post Anesthesia Evaluation Post Anesthesia Evaluation Vital Signs: Vital Signs Temp Pulse Resp BP Pulse Ox 11/02/20 08:00 97.2 F 57 18 140/67 H 98 11/02/20 03:19 97.6 F 72 18 140/63 H 95 Anesthesia: General Endotracheal-GETA Mental Status: Awake Pain Control: Satisfactory Nausea/Vomiting: None Hydration: Adequate Anesthesia-Related Issues: No Anes. Related Issues
== END 2020-11-02 10:12 | disposition home or self-care (01) | DRG 403 ==
LOC: HO.SSSA 14:00 → HO.S3 14:05
PROVIDERS: Physician Assistant; Admitting Provider Surgery; PCP Nurse Practitioner Family; Visit Provider Surgery
PROC: 0DB64Z3 Excision of Stomach, Percutaneous Endoscopic Approach, Vertical (ICD-10-PCS; CPT 43845; principal; 2020-11-01 10:10)
DX: E66.01 Morbid (severe) obesity due to excess calories (principal); K44.0 Diaphragmatic hernia with obstruction, without gangrene; E03.9 Hypothyroidism, unspecified; K66.0 Peritoneal adhesions (postprocedural) (postinfection); K21.9 Gastro-esophageal reflux disease without esophagitis; I10 Essential (primary) hypertension; E11.9 Type 2 diabetes mellitus without complications; M19.90 Unspecified osteoarthritis, unspecified site; Z68.38 Body mass index [BMI] 38.0-38.9, adult; Z20.822 Contact with and (suspected) exposure to COVID-19; Z79.890 Hormone replacement therapy; Z79.899 Other long term (current) drug therapy
CPT/HCPCS: 36415; 80048; 80053; 80061; 82947; 83036; 83525; 84443; 85014; 85018; 85025; 85610; 85730; 86140; 86850; 86900; 86901; 87635; 88307; 88342; 99024; A4649; J0131; J0690; J1100; J1170; J2250; J2370; J2405; J3010

== ENCOUNTER → 2020-11-07 08:17 | Outpatient (BNVA) | payer OTHER, SELFPAY | PROVIDERS: PCP Nurse Practitioner Family; Referring Provider Nurse Practitioner Family; Visit Provider Surgery | DX: E66.9 Obesity, unspecified (principal); Z68.39 Body mass index [BMI] 39.0-39.9, adult | CPT/HCPCS: 99212 ==

== ENCOUNTER → 2020-12-05 08:07 | Outpatient (BNVA) | payer OTHER, SELFPAY | PROVIDERS: PCP Nurse Practitioner Family; Visit Provider Surgery | DX: E66.9 Obesity, unspecified (principal); Z68.38 Body mass index [BMI] 38.0-38.9, adult | CPT/HCPCS: 99212 ==

== ENCOUNTER → 2021-01-07 08:05 | Outpatient (BNVA) | payer OTHER, SELFPAY | PROVIDERS: PCP Nurse Practitioner Family; Visit Provider Surgery | DX: E66.9 Obesity, unspecified (principal); Z68.34 Body mass index [BMI] 34.0-34.9, adult | CPT/HCPCS: 99212 ==

== ENCOUNTER → 2021-02-06 08:02 | Outpatient (BNVA) | payer OTHER, SELFPAY | PROVIDERS: PCP Nurse Practitioner Family; Visit Provider Surgery ==

== ENCOUNTER → 2021-03-14 08:07 | Outpatient (BNVA) | payer OTHER, SELFPAY | PROVIDERS: PCP Nurse Practitioner Family; Visit Provider Surgery ==

== ENCOUNTER → 2021-04-26 08:17 | Outpatient (BNVA) | payer OTHER, SELFPAY | PROVIDERS: PCP Nurse Practitioner Family; Visit Provider Physician Assistant ==

== ENCOUNTER 2021-05-01 07:49 | Outpatient (REF) | payer OTHER, SELFPAY ==
[2021-05-01 08:22] LABS: MANUAL DIFF FLAG NO
[2021-05-01 08:39] LABS: Basophils Absolute Auto 0.1 X10*3/uL (0.0-0.2); Eosinophils Absolute Auto 0.1 X10*3/uL (0.0-0.4); Eosinophils Percent Auto 1.6 % (0-4); Hematocrit 37.9 % (37.0-47.0); Hemoglobin 12.3 g/dl (12.0-16.0); Imm Gran Abs Auto 0.01 X10*3/uL (0.00-0.03); Imm Gran Pct Auto 0.2 % (0.0-0.4); Lymphocytes Absolute Auto 1.5 X10*3/uL (1.2-4.9); Lymphocytes Percent Auto 30.7 % (20-40); Mean Corpuscular HGB Conc 32.5 g/dl (31.0-35.0); Mean Corpuscular Hemoglobin 27.5 pg (27.0-33.0); Mean Corpuscular Volume 84.6 fL (80.0-98.0); Mean Platelet Volume 11.3 fL (9.4-12.3); Monocytes Absolute Auto 0.4 X10*3/uL (0.1-1.2); Monocytes Percent Auto 7.2 % (2-11); Neutrophils Absolute Auto 2.9 x10*3/uL (2.0-8.3); Neutrophils Percent Auto 59.3 % (45-73); Platelet Count 195 X10*3/uL (160-400); Red Blood Count 4.48 X10*6/uL (4.20-5.50); Red Cell Distribution Width 15.4 % (11.0-16.0); White Blood Count 4.9 X10*3/uL (4.8-10.8)
[2021-05-01 09:09] LABS: Estimated Average Glucose 108 mg/dL; Hemoglobin A1c % 5.4 %
[2021-05-01 09:13] LABS: Alanine Aminotransferase 27 U/L (0-31); Albumin Level 3.9 g/dL (3.5-5.0); Alkaline Phosphatase 86 U/L (39-117); Anion Gap 12 (12-20); Aspartate Amino Transferase 23 U/L (5-31); Bilirubin Total 0.5 mg/dL (0.0-1.0); Blood Urea Nitrogen 12 mg/dL (9-16); C Reactive Protein 0.39 mg/dL (< or = 0.50); Calcium 9.5 mg/dL (8.4-10.2); Carbon Dioxide 30 mmol/L (22-29); Chloride 107 mmol/L (96-108); Cholesterol 170 mg/dL; Estimated Glomerular Filt Rate > 60; Glucose Random 88 mg/dL (60-115); HDL Cholesterol 57 mg/dL; Iron 107 mcg/dL (30-160); LDL Cholesterol Calculated 102 mg/dl; Potassium 4.6 mmol/L (3.3-5.1); Sodium 144 mmol/L (135-145); Total Protein 6.6 g/dL (6.5-8.0); Triglycerides 55 mg/dL
[2021-05-01 09:25] LABS: Percent Iron Saturation 40 % (15-50); Total Iron Binding Capacity 268 mcg/dL (228-428); Unsaturated Iron Binding 161 ug/dL
[2021-05-01 09:27] LABS: TSH reflex Free T4 2.24 uIU/mL (0.32-4.0); Vitamin D 25-OH Total 37.4 ng/mL (>30)
[2021-05-01 09:36] LABS: Vitamin B12 827 pg/mL (200-900)
[2021-05-01 10:07] LABS: Ferritin 93 ng/mL (10-250); Insulin 8 uU/mL (2-29)
[2021-05-02 14:33] LABS: Calcium (PTHI) 9.4 mg/dL (8.6-10.4); PTHI 55 pg/mL (14-64)
[2021-05-04 17:06] LABS: Zinc 76 mcg/dL (60-130)
[2021-05-06 12:31] LABS: Vitamin B1 17 nmol/L (8-30)
[2021-05-07 19:42] LABS: Vitamin A 24 mcg/dL (38-98)
== END 2021-05-01 07:50 | disposition home or self-care (01) ==
LOC: HO.LAB 07:49
PROVIDERS: PCP Nurse Practitioner Family; Visit Provider Physician Assistant
DX: E66.9 Obesity, unspecified (principal); Z98.84 Bariatric surgery status
CPT/HCPCS: 36415; 80053; 80061; 82306; 82607; 82728; 82746; 83036; 83525; 83540; 83970; 84425; 84443; 84590; 84630; 85025; 86140

== ENCOUNTER → 2021-06-05 08:16 | Outpatient (BNVA) | payer OTHER, SELFPAY | PROVIDERS: PCP Nurse Practitioner Family; Visit Provider Physician Assistant | DX: Z13.89 Encounter for screening for other disorder (principal) ==

== ENCOUNTER → 2021-10-18 13:26 | Outpatient (BNVA) | payer OTHER, SELFPAY | PROVIDERS: PCP Nurse Practitioner Family; Visit Provider Physician Assistant Surgical | DX: E66.9 Obesity, unspecified (principal); L98.7 Excessive and redundant skin and subcutaneous tissue; Z98.84 Bariatric surgery status; Z68.30 Body mass index [BMI] 30.0-30.9, adult | CPT/HCPCS: 99212 ==

== ENCOUNTER 2021-10-31 08:15 | Outpatient (REF) | payer OTHER, SELFPAY ==
[2021-10-31 08:36] LABS: MANUAL DIFF FLAG NO
[2021-10-31 08:58] LABS: Basophils Percent Auto 0.7 % (0-2); Eosinophils Absolute Auto 0.1 X10*3/uL (0.0-0.4); Eosinophils Percent Auto 1.4 % (0-4); Hematocrit 37.1 % (37.0-47.0); Hemoglobin 12.4 g/dl (12.0-16.0); Imm Gran Abs Auto 0.01 X10*3/uL (0.00-0.03); Imm Gran Pct Auto 0.2 % (0.0-0.4); Lymphocytes Absolute Auto 1.6 X10*3/uL (1.2-4.9); Lymphocytes Percent Auto 28.6 % (20-40); Mean Corpuscular HGB Conc 33.4 g/dl (31.0-35.0); Mean Corpuscular Volume 83.7 fL (80.0-98.0); Mean Platelet Volume 11.2 fL (9.4-12.3); Monocytes Absolute Auto 0.4 X10*3/uL (0.1-1.2); Monocytes Percent Auto 6.7 % (2-11); Neutrophils Absolute Auto 3.5 x10*3/uL (2.0-8.3); Neutrophils Percent Auto 62.4 % (45-73); Platelet Count 178 X10*3/uL (160-400); Red Blood Count 4.43 X10*6/uL (4.20-5.50); Red Cell Distribution Width 14.6 % (11.0-16.0); White Blood Count 5.6 X10*3/uL (4.8-10.8)
[2021-10-31 09:29] LABS: Alanine Aminotransferase 20 U/L (0-31); Alkaline Phosphatase 88 U/L (39-117); Anion Gap 13 (12-20); Aspartate Amino Transferase 20 U/L (5-31); Bilirubin Total 0.6 mg/dL (0.0-1.0); Blood Urea Nitrogen 13 mg/dL (9-16); C Reactive Protein 0.22 mg/dL (< or = 0.50); Calcium 9.1 mg/dL (8.4-10.2); Carbon Dioxide 27 mmol/L (22-29); Chloride 107 mmol/L (96-108); Cholesterol 164 mg/dL; Estimated Glomerular Filt Rate > 60; Glucose Random 88 mg/dL (60-115); HDL Cholesterol 64 mg/dL; Iron 112 mcg/dL (30-160); LDL Cholesterol Calculated 91 mg/dl; Percent Iron Saturation 40 % (15-50); Potassium 4.1 mmol/L (3.3-5.1); Sodium 143 mmol/L (135-145); Total Iron Binding Capacity 277 mcg/dL (228-428); Total Protein 6.7 g/dL (6.5-8.0); Triglycerides 47 mg/dL; Unsaturated Iron Binding 165 ug/dL
[2021-10-31 09:53] LABS: Ferritin 114 ng/mL (10-250); TSH reflex Free T4 2.49 uIU/mL (0.32-4.0); Vitamin D 25-OH Total 37.6 ng/mL (>30)
[2021-10-31 10:01] LABS: Estimated Average Glucose 108 mg/dL; Hemoglobin A1c % 5.4 %
[2021-10-31 10:15] LABS: Folate > 20.0 ng/mL (> or = 4.0); Vitamin B12 853 pg/mL (200-900)
[2021-10-31 10:25] LABS: Insulin 7 uU/mL (2-29)
[2021-11-01 13:12] LABS: Calcium (PTHI) 9.3 mg/dL (8.6-10.4); PTHI 54 pg/mL (16-77)
[2021-11-06 00:56] LABS: Vitamin A 27 mcg/dL (38-98)
[2021-11-06 01:22] LABS: Zinc 86 mcg/dL (60-130)
[2021-11-07 11:11] LABS: Vitamin B1 19 nmol/L (8-30)
== END 2021-10-31 08:16 | disposition home or self-care (01) ==
LOC: HO.LAB 08:15
PROVIDERS: Visit Provider Physician Assistant Surgical
DX: Z98.84 Bariatric surgery status (principal)
CPT/HCPCS: 36415; 80053; 80061; 82306; 82607; 82728; 82746; 83036; 83525; 83540; 83970; 84425; 84443; 84590; 84630; 85025; 86140

== ENCOUNTER → 2021-11-27 14:09 | Outpatient (BNVA) | payer OTHER, SELFPAY | PROVIDERS: PCP Nurse Practitioner Family; Visit Provider Physician Assistant Surgical | DX: E66.9 Obesity, unspecified (principal); L98.7 Excessive and redundant skin and subcutaneous tissue; Z68.29 Body mass index [BMI] 29.0-29.9, adult; Z98.84 Bariatric surgery status | CPT/HCPCS: 99212 ==

== ENCOUNTER → 2022-02-05 15:34 | Outpatient (BNVA) | payer OTHER, SELFPAY | PROVIDERS: PCP Nurse Practitioner Family; Visit Provider Physician Assistant Surgical | DX: E66.3 Overweight (principal); L98.7 Excessive and redundant skin and subcutaneous tissue; Z98.84 Bariatric surgery status; Z68.29 Body mass index [BMI] 29.0-29.9, adult | CPT/HCPCS: 99212 ==

== ENCOUNTER → 2022-04-11 15:42 | Outpatient (BNVA) | payer OTHER, SELFPAY | PROVIDERS: PCP Nurse Practitioner Family; Visit Provider Physician Assistant Surgical | DX: L98.7 Excessive and redundant skin and subcutaneous tissue (principal); E66.3 Overweight; Z68.28 Body mass index [BMI] 28.0-28.9, adult; Z90.3 Acquired absence of stomach [part of] | CPT/HCPCS: 99212 ==

== ENCOUNTER → 2022-05-23 15:42 | Outpatient (BNVA) | payer OTHER, SELFPAY | PROVIDERS: PCP Nurse Practitioner Family; Visit Provider Physician Assistant Surgical | DX: E66.3 Overweight (principal); Z68.28 Body mass index [BMI] 28.0-28.9, adult | CPT/HCPCS: 99212 ==

== ENCOUNTER 2022-05-30 10:00 | Outpatient (REF) | payer OTHER, SELFPAY ==
[2022-05-30 10:11] LABS: MANUAL DIFF FLAG NO
[2022-05-30 10:29] LABS: Basophils Percent Auto 0.8 % (0-2); Eosinophils Absolute Auto 0.1 X10*3/uL (0.0-0.4); Eosinophils Percent Auto 1.7 % (0-4); Hematocrit 37.6 % (37.0-47.0); Hemoglobin 12.4 g/dl (12.0-16.0); Imm Gran Abs Auto 0.01 X10*3/uL (0.00-0.03); Imm Gran Pct Auto 0.2 % (0.0-0.4); Lymphocytes Absolute Auto 1.9 X10*3/uL (1.2-4.9); Lymphocytes Percent Auto 36.2 % (20-40); Mean Corpuscular Hemoglobin 27.9 pg (27.0-33.0); Mean Corpuscular Volume 84.7 fL (80.0-98.0); Mean Platelet Volume 10.1 fL (9.4-12.3); Monocytes Absolute Auto 0.3 X10*3/uL (0.1-1.2); Monocytes Percent Auto 5.8 % (2-11); Neutrophils Absolute Auto 2.9 x10*3/uL (2.0-8.3); Neutrophils Percent Auto 55.3 % (45-73); Platelet Count 196 X10*3/uL (160-400); Red Blood Count 4.44 X10*6/uL (4.20-5.50); White Blood Count 5.3 X10*3/uL (4.8-10.8)
[2022-05-30 10:52] LABS: Estimated Average Glucose 111 mg/dL; Hemoglobin A1c % 5.5 %
[2022-05-30 11:03] LABS: Alanine Aminotransferase 23 U/L (0-31); Albumin Level 4.1 g/dL (3.5-5.0); Alkaline Phosphatase 102 U/L (39-117); Anion Gap 13 (12-20); Aspartate Amino Transferase 23 U/L (5-31); Bilirubin Total 0.6 mg/dL (0.0-1.0); Blood Urea Nitrogen 13 mg/dL (9-16); C Reactive Protein 0.16 mg/dL (< or = 0.50); Calcium 9.6 mg/dL (8.4-10.2); Carbon Dioxide 26 mmol/L (22-29); Chloride 109 mmol/L (96-108); Cholesterol 180 mg/dL; Estimated Glomerular Filt Rate > 60; Glucose Random 85 mg/dL (60-115); HDL Cholesterol 69 mg/dL; Iron 121 mcg/dL (30-160); LDL Cholesterol Calculated 103 mg/dl; Percent Iron Saturation 45 % (15-50); Potassium 4.3 mmol/L (3.3-5.1); Sodium 144 mmol/L (135-145); Total Iron Binding Capacity 267 mcg/dL (228-428); Total Protein 6.6 g/dL (6.5-8.0); Triglycerides 41 mg/dL; Unsaturated Iron Binding 146 ug/dL
[2022-05-30 11:35] LABS: Ferritin 99 ng/mL (10-250); Folate 15.3 ng/mL (> or = 4.0); Insulin 6 uU/mL (2-29); TSH reflex Free T4 1.64 uIU/mL (0.32-4.0); Vitamin B12 1064 pg/mL (200-900); Vitamin D 25-OH Total 50.1 ng/mL (>30)
[2022-06-02 13:28] LABS: Calcium (PTHI) 9.4 mg/dL (8.6-10.4); PTHI 41 pg/mL (16-77)
[2022-06-03 13:24] LABS: Zinc 67 mcg/dL (60-130)
[2022-06-06 00:39] LABS: Vitamin A 22 mcg/dL (38-98)
[2022-06-06 05:57] LABS: Vitamin B1 19 nmol/L (8-30)
== END 2022-05-30 10:01 | disposition home or self-care (01) ==
LOC: HO.LAB 10:00
PROVIDERS: Visit Provider Physician Assistant Surgical
DX: Z98.84 Bariatric surgery status (principal)
CPT/HCPCS: 36415; 80053; 80061; 82306; 82607; 82728; 82746; 83036; 83525; 83540; 83970; 84425; 84443; 84590; 84630; 85025; 86140

== ENCOUNTER → 2022-07-30 08:41 | Outpatient (BNVA) | payer MEDICAID, SELFPAY | PROVIDERS: PCP Nurse Practitioner Family; Visit Provider Surgery ==

== ENCOUNTER → 2022-08-07 15:49 | Outpatient (BNVA) | payer MEDICAID, SELFPAY | PROVIDERS: PCP Nurse Practitioner Family; Visit Provider Surgery ==

== ENCOUNTER 2022-08-21 09:00 | Day surgery (SDC) | payer MEDICAID, SELFPAY ==
[2022-08-14 08:17] LABS: MANUAL DIFF FLAG NO
[2022-08-14 08:55] LABS: Basophils Percent Auto 0.9 % (0-2); Eosinophils Absolute Auto 0.1 X10*3/uL (0.0-0.4); Eosinophils Percent Auto 1.6 % (0-4); Hematocrit 39.1 % (37.0-47.0); Hemoglobin 12.9 g/dl (12.0-16.0); Imm Gran Abs Auto 0.01 X10*3/uL (0.00-0.03); Imm Gran Pct Auto 0.2 % (0.0-0.4); Lymphocytes Absolute Auto 1.7 X10*3/uL (1.2-4.9); Lymphocytes Percent Auto 38.3 % (20-40); Mean Corpuscular Hemoglobin 28.2 pg (27.0-33.0); Mean Corpuscular Volume 85.6 fL (80.0-98.0); Mean Platelet Volume 11.5 fL (9.4-12.3); Monocytes Absolute Auto 0.3 X10*3/uL (0.1-1.2); Monocytes Percent Auto 7.9 % (2-11); Neutrophils Absolute Auto 2.2 x10*3/uL (2.0-8.3); Neutrophils Percent Auto 51.1 % (45-73); Platelet Count 183 X10*3/uL (160-400); Red Blood Count 4.57 X10*6/uL (4.20-5.50); Red Cell Distribution Width 14.3 % (11.0-16.0); White Blood Count 4.3 X10*3/uL (4.8-10.8)
[2022-08-14 09:00] LABS: INTERNATIONAL NORM RATIO 1.2 (0.9-1.1); Prothrombin Time 13.6 SEC (10.0-13.1)
[2022-08-14 09:03] LABS: Partial Thromboplastin Time 34.2 SEC (26.0-36.4)
[2022-08-14 09:27] LABS: Estimated Average Glucose 103 mg/dL; Hemoglobin A1c % 5.2 %
[2022-08-14 11:51] VITALS: BMI 26.6
--- NOTE | 2022-08-14 15:54 | ECG_ITS ---
Test Reason : OBESITY Blood Pressure : / mmHG Vent. Rate : 055 BPM Atrial Rate : 055 BPM P-R Int : 164 ms QRS Dur : 102 ms QT Int : 426 ms P-R-T Axes : 055 015 051 degrees QTc Int : 407 ms Sinus bradycardia Otherwise normal ECG When compared with ECG of 26-MAR-2020 10:59, No significant change was found Referred By: Lux Ocampo Electronically Signed By:CARMEN YIN MD
[2022-08-14 18:06] LABS: Alanine Aminotransferase 20 U/L (0-31); Albumin Level 4.2 g/dL (3.5-5.0); Alkaline Phosphatase 102 U/L (39-117); Anion Gap 14 (12-20); Aspartate Amino Transferase 24 U/L (5-31); Bilirubin Total 0.3 mg/dL (0.0-1.0); Blood Urea Nitrogen 20 mg/dL (9-16); Calcium 9.8 mg/dL (8.4-10.2); Carbon Dioxide 29 mmol/L (22-29); Chloride 103 mmol/L (96-108); Creatinine Clr Calc Pharmacy 94.3; Estimated Glomerular Filt Rate > 60; Glucose Random 84 mg/dL (60-115); Potassium 4.2 mmol/L (3.3-5.1); Sodium 142 mmol/L (135-145); Total Protein 7.3 g/dL (6.5-8.0)
--- NOTE | 2022-08-16 15:43 | MHC.SHP ---
Pre-Procedural Eval Section A Date of Service: 08/16/22 The patient is an INPATIENT: No The History & Physical has been completed within 30 days and I have reviewed it.: Yes Section B Chief Complaint: Excessive,redundant skin and subcutaneous tissue Relevant Family History (Specify if Yes): No Relevant Social History: None Present Medications: None Medical History: No relevant PMH History of Previous Operations: Relevant previous surgery/procedure and date(s) (Laparoscopic sleeve gastrectomy) Allergies: Allergies Allergy/AdvReac Type Severity Reaction Status Date / Time oxycodone [From Percocet] AdvReac Intermediate Nausea and Verified 08/14/22 11:48 Vomiting Review of Systems Sugical H&P ROS: Negative: Constitution, Cardiovascular, Respiratory, Neurological, Psychiatric, Hem-Onc, Allergic/Immunologic, Gastrointestinal, Genitourinary, Musculoskeletal, Integumentary, Endocrine and Eyes/Ears/Nose/Throat Exam Surgical H&P Exam: Normal: HEENT, Normal: Heart, Normal: Lungs, Normal: Extremities, Normal: Abdomen, Normal: Skin and Normal: Neurological Plan Diagnosis/Plan: Unchanged I have reviewed the history and physical and performed a pertinent physical examination on my patient. No changes have occurred unless specified. Time Spent With Patient Time: Total time managing care of this patient today ____ minutes.
--- NOTE | 2022-08-19 15:13 | P.CONAN_ITS ---
Documented by User: Rocio Weinberg NP 08/19/22 15:16 HPI - Anesthesia Eval Consult details Narrative: 62yo F for Panniculectomy s/p sleeve 10/2020 [facility] Active Problems Active Problems: All Active Problems (Updated 08/14/22 @ 12:38 by Tejal Oshea PA-C) Pre-op evaluation (Acute) Postgastrectomy malabsorption (Acute) Overweight (Acute) Excess skin of abdomen (Acute) BMI 31.0-31.9,adult (Acute) BMI 32.0-32.9,adult (Acute) BMI 34.0-34.9,adult (Acute) BMI 35.0-35.9,adult (Acute) Steatosis, liver (Acute) GERD (gastroesophageal reflux disease) (Acute) S/P laparoscopic sleeve gastrectomy (Acute) Status post repair of paraesophageal diaphragmatic hernia (Acute) Diaphragmatic hernia (Acute) Vitamin A deficiency (Acute) Adjustment disorder, unspecified (Acute) Obesity (Acute) BMI 39.0-39.9,adult (Acute) BMI 38.0-38.9,adult (Acute) DJD (degenerative joint disease) (Acute) Hypothyroidism (Acute) Hypertension (Acute) Non-insulin dependent diabetes mellitus (Acute) Morbid obesity (Acute) Past Medical History Medical History COVID-19 COVID-19 vaccine series completed DJD (degenerative joint disease) GERD (gastroesophageal reflux disease) Hypertension Hypothyroidism Morbid obesity Non-insulin dependent diabetes mellitus Postgastrectomy malabsorption Steatosis, liver Family History Family History Mother No problems noted. Father No problems noted. Sister No problems noted. Sister No problems noted. Brother No problems noted. Brother No problems noted. Son No problems noted. Daughter Diabetes Obesity Daughter No problems noted. Surgical History Surgical History History of sleeve gastrectomy History of tubal ligation Hx of section Hx of colonoscopy Hx of knee surgery Hx of tonsillectomy Social History Social History Household Members: Other Household Members Other:: daughter Housing: Apartment Are you a primary inpatient care manager rn to a significant other at home: No Do you presently have visiting nurse or other home services: No Alcohol intake: never Patient Tobacco Use Status: Never used Tobacco Use of substances other than those prescribed or required for medical reasons: No Have you been hit, kicked, punched, or otherwise hurt by someone within the past year? If so, by whom?: No Are you DNR?: No Advance Directives: No Advance Directives Information Provided: Yes Advance Directives on File: No Recently lost weight without trying: No Nutrition Risks: Gastrointestinal Malabsorption service: No Current occupational status: employed Meds Allergies Allergy/AdvReac Type Severity Reaction Status Date / Time oxycodone [From Percocet] AdvReac Intermediate Nausea and Verified 08/21/22 09:38 Vomiting Home Medications Medication Instructions Recorded Confirmed Last Taken Type levothyroxine 50 mcg tablet 1 tab PO DAILY 11/01/20 08/14/22 08/21/22 History calcium citrate 315 mg-vitamin D3 1 tab PO BID 04/26/21 08/14/22 Unknown History 5 mcg (200 unit) tablet (Calcium Citrate + D) [id number] 45 mg-folic 1 cap PO DAILY 04/26/21 08/14/22 Unknown History acid 800 mcg-vit K 120 mcg capsule (Bariatric Multivitamins) mirabegron 25 mg tablet,extended 25 mg PO DAILY 08/14/22 08/14/22 Unknown History release 24 hr (Myrbetriq) Exam Exam Date and Time: August 19, 2022 1513 Height,Weight and Vital Signs: Height 5 ft 6 in Weight 74.843 kg Pertinent Lab Results Pertinent Lab Results: Laboratory Tests 08/14/22 08/14/22 08/14/22 08:15 08:16 08:16 WBC 4.3 L RBC 4.57 Hgb 12.9 Hct 39.1 MCV 85.6 MCH 28.2 MCHC 33.0 RDW 14.3 Plt Count 183 MPV 11.5 Immature Gran % (Auto) 0.2 Neut % (Auto) 51.1 Lymph % (Auto) 38.3 Walsh % (Auto) 7.9 Eos % (Auto) 1.6 Baso % (Auto) 0.9 Lymph # (Auto) 1.7 Walsh # (Auto) 0.3 Eos # (Auto) 0.1 Baso # (Auto) 0.0 Abs Immat Gran (auto) 0.01 Absolute Neuts (auto) 2.2 Absolute Nucleated RBC 0.000 Nucleated RBC % (auto) 0.0 PT 13.6 H INR 1.2 H APTT 34.2 Sodium Potassium Chloride Carbon Dioxide Anion Gap BUN Creatinine Estim Creat Clear Calc Estimated GFR Random Glucose Estimat Average Glucose Hemoglobin A1c % Calcium Total Bilirubin AST ALT Alkaline Phosphatase Total Protein Albumin Blood Type B Positive Antibody Screen NEGATIVE 08/14/22 08/14/22 08/14/22 08:16 08:16 16:07 WBC RBC Hgb Hct MCV MCH MCHC RDW Plt Count MPV Immature Gran % (Auto) Neut % (Auto) Lymph % (Auto) Walsh % (Auto) Eos % (Auto) Baso % (Auto) Lymph # (Auto) Walsh # (Auto) Eos # (Auto) Baso # (Auto) Abs Immat Gran (auto) Absolute Neuts (auto) Absolute Nucleated RBC Nucleated RBC % (auto) PT INR APTT Sodium Cancelled 142 Potassium Cancelled 4.2 Chloride Cancelled 103 Carbon Dioxide Cancelled 29 Anion Gap Cancelled 14 BUN Cancelled 20 H Creatinine Cancelled 0.64 Estim Creat Clear Calc Cancelled 94.3 Estimated GFR Cancelled > 60 Random Glucose Cancelled 84 Estimat Average Glucose 103 Hemoglobin A1c % 5.2 Calcium Cancelled 9.8 Total Bilirubin Cancelled 0.3 AST Cancelled 24 ALT Cancelled 20 Alkaline Phosphatase Cancelled 102 Total Protein Cancelled 7.3 Albumin Cancelled 4.2 Blood Type Antibody Screen Narrative Narrative: EKG 07/2022 Vent. Rate : 055 BPM ? ? Atrial Rate : 055 BPM ?? P-R Int : 164 ms? QRS Dur : 102 ms ? ? QT Int : 426 ms ? ? ? P-R-T Axes : 055 015 051 degrees ?? QTc Int : 407 ms ? Sinus bradycardia Otherwise normal ECG When compared with ECG of 26-MAR-2020 10:59, No significant change was found Assessment and Plan Assessment Anesthesia Assessment: Chart Reviewed Documented by User: Helga Merchant MD 08/21/22 10:05 [facility] Past Medical History Medical History COVID-19 COVID-19 vaccine series completed DJD (degenerative joint disease) GERD (gastroesophageal reflux disease) Hypertension Hypothyroidism Morbid obesity Non-insulin dependent diabetes mellitus Postgastrectomy malabsorption Steatosis, liver Family History Family History Mother No problems noted. Father No problems noted. Sister No problems noted. Sister No problems noted. Brother No problems noted. Brother No problems noted. Son No problems noted. Daughter Diabetes Obesity Daughter No problems noted. Surgical History Surgical History History of sleeve gastrectomy History of tubal ligation Hx of section Hx of colonoscopy Hx of knee surgery Hx of tonsillectomy History of Problems with Anesthesia: No Social History Social History Household Members: Other Household Members Other:: daughter Housing: Apartment Are you a primary inpatient care manager rn to a significant other at home: No Do you presently have visiting nurse or other home services: No Alcohol intake: never Patient Tobacco Use Status: Never used Tobacco Use of substances other than those prescribed or required for medical reasons: No Have you been hit, kicked, punched, or otherwise hurt by someone within the past year? If so, by whom?: No Are you DNR?: No Advance Directives: No Advance Directives Information Provided: Yes Advance Directives on File: No Recently lost weight without trying: No Nutrition Risks: Gastrointestinal Malabsorption service: No Current occupational status: employed Meds Allergies Allergy/AdvReac Type Severity Reaction Status Date / Time oxycodone [From Percocet] AdvReac Intermediate Nausea and Verified 08/21/22 09:38 Vomiting Home Medications Medication Instructions Recorded Confirmed Last Taken Type levothyroxine 50 mcg tablet 1 tab PO DAILY 11/01/20 08/14/22 08/21/22 History calcium citrate 315 mg-vitamin D3 1 tab PO BID 04/26/21 08/14/22 Unknown History 5 mcg (200 unit) tablet (Calcium Citrate + D) [id number]-[id number] 45 mg-folic 1 cap PO DAILY 04/26/21 08/14/22 Unknown History acid 800 mcg-vit K 120 mcg capsule (Bariatric Multivitamins) mirabegron 25 mg tablet,extended 25 mg PO DAILY 08/14/22 08/14/22 Unknown History release 24 hr (Myrbetriq) Exam Airway Mallampati Class: II TM Dist: >3cm Neck ROM: Full Loose/Missing/Broken Teeth: No Heart: RRR Lungs: CTA Assessment and Plan Assessment Anesthesia Assessment: Anesthesia Plan Discussed Final Anesthetic Review History of Problems with Anesthesia: No NPO: Yes ASA Class: II Final Preanesthetic Review: Meds/Allgs Chart Reviewed, Consent Obtained/Reviewed and Anes Risks/Benef Reviewed Patient Risk: Low Procedure Risk: Low Anesthetic Plan Anesthetic Plan: GA Disposition: Standard PACU
[2022-08-20 15:28] LABS: COVID-19 Test Negative (Negative); IDNOW Serial# 9DB6401D
[2022-08-21] VITALS (12 sets, daily range): BP systolic 113–135; BP diastolic 63–76; PULSE 53–83; RESP 12–19; TEMP 36.4–36.8; O2SAT 96–100
[2022-08-21] MEDS: Lactated Ringers 1,000 ML 100 ML IVCONT (09:27)
--- NOTE | 2022-08-21 10:37 | P.BOP_ITS ---
Brief Operative Note Date of Service: 08/21/22 Pre-op diagnosis: Excess skin Post-op diagnosis: same Procedure: PROCEDURE: Panniculectomy with umbilical transposition and bilateral subcutaneous fat flaps INDICATION: This a 62 year old female who underwent laparoscopic sleeve gastrectomy on 11/01/2020. She had an excellent result achieving a BMI of 28.4 kg/m2 with a total weight loss of 104.3lbs, or 38.3% of her TBWL. As a result, she has developed panniculitis which has not resolved despite continuous use of clotrimazole ointment as well as skin irritation. On exam she has extreme skin laxity due to massive weight loss, with the abdominal pannus completely hanging 4cm below the pubis. Panniculectomy was recommended. We discussed the two options for the panniculectomy of using a combined vertical and horizontal incisions or just a horizontal (bikini) incision. It was my recommendation to do only horizontal incision based on her body habitus and skin laxity. The patient agreed with this. Risks and complications were discussed with the patient including bleeding, infection, umbilical loss, flap necrosis, asymmetry, dehiscence, seroma, VTE. The patient understood the risks and was in agreement to proceed with surgery. PROCEDURE: The incisions were appropriately marked at the preop area with the patient standing and laying down. After induction of general anesthesia a Graham catheter and pneumatic compression devices were placed. The patient was prepped and draped in the usual sterile manner and the incisions were marked again and confirmed. The skin was infiltrated with lidocaine and epinephrine. The #10 blade scalpel was used for the large incisions and the #15 blade scalpel for the umbilicus. Cautery was used to divide the subcutaneous tissues until the fascia was identified. Then I used the Sonincision (GoFormz) to separate the pannus from the fascia. The inferior incision was made initially and I mobilized the flap for a several centimeters cephalad to the umbilicus. The umbilicus was incised circumferentially and detached from the surrounding tissues all the way to the fascia while its stalk was preserved. With the patient in reflex position I confirmed that the skin flaps were appropriate and would allow for the tissues to come together with reasonable tension. At that point a horizontal incision was made 4 cm above the umbilicus. #10 blade was used for the skin, cautery for the dermis and the Thunderbeat for the remaining tissues. A subcutaneous fat flap was raised from the upper skin flap in order to fill the space under the skin and support the closure of the two flaps. In addition the inferior flap was mobilized caudally for a few centimeters to create a space for the subcutaneous fat flap as well as relieve tension from the closure. A circumferential incision was made at the area where the umbilicus would be re-implanted. The umbilicus was appropriately oriented and was delivered through the defect and was secured in place with a Sumner. No bleeding was noted anywhere. One Dannie drain was placed from the left corner of the horizontal incision across the wound and was secured in place with a silk suture. A total of 14ml of Zynrelef was applied on top of the fascia and under the subcutaneous fat flaps. The subcutaneous fat flap was secured under the inferior flap with several interrupted 3.0 Monocryl sutures. The two flaps were brought together and were attached at the midline of the horizontal incision with a #3.0 Monocryl suture. At that point the umbilicus was properly oriented and was re-approximated to the skin with 8 interrupted 3.0 Monocryl sutures. In a similar fashion the skin flaps were re-approximated with multiple 3.0 Monocryl sutures. The skin was closed in all incisions and umbilicus with 4.0 Monocryl sutures. Steri-strips, xeroform gauzes and gauzes were used to cover the incisions. An abdominal binder was also placed. The was awaken and was transferred to the recover room in a stable condition. I was present and performed the entire procedure. Mr. Lopez was the project administrative assistant. Alin Oacmpo MD, PhD, FACS Surgeon: Lux Ocampo MD Surgeon: Lux Ocampo MD Anesthesia: GETA, local and other (14ml Zynrelef) Was an Baseball Player used for this Procedure?: No Baseball Player: Francis Lopez Estimated blood loss (mL): 10 IV fluids (mL): 2,000 Urine output (mL): 800 Pathology: other (Abdominal pannus) Condition: stable Disposition: PACU
--- NOTE | 2022-08-21 10:46 | PC.NURSE ---
patient voided at 10:35 prior to leaving [facility].
== END 2022-08-21 17:15 | disposition home or self-care (01) ==
PROVIDERS: Physician Assistant Surgical; PCP Nurse Practitioner Family; Visit Provider Surgery
PROC: 0JB80ZZ Excision of Abdomen Subcutaneous Tissue and Fascia, Open Approach (ICD-10-PCS; CPT 15830; principal; 2022-08-21 11:00)
DX: L98.7 Excessive and redundant skin and subcutaneous tissue (principal); K91.2 Postsurgical malabsorption, not elsewhere classified; L57.4 Cutis laxa senilis; M79.3 Panniculitis, unspecified; Z98.84 Bariatric surgery status; Z90.3 Acquired absence of stomach [part of]; K21.9 Gastro-esophageal reflux disease without esophagitis; K76.0 Fatty (change of) liver, not elsewhere classified; K59.00 Constipation, unspecified; E66.01 Morbid (severe) obesity due to excess calories; Z68.28 Body mass index [BMI] 28.0-28.9, adult; I10 Essential (primary) hypertension; E03.9 Hypothyroidism, unspecified; E11.9 Type 2 diabetes mellitus without complications; Z79.899 Other long term (current) drug therapy; Z88.8 Allergy status to other drugs, medicaments and biological substances; Z20.822 Contact with and (suspected) exposure to COVID-19; Z86.16 Personal history of COVID-19
CPT/HCPCS: 15830; 15847; 36415; 80053; 83036; 85025; 85610; 85730; 86850; 86900; 86901; 87635; 88304; 93005; C9088; J0131; J0690; J1100; J1170; J2250; J2405; J3010; J3370

== ENCOUNTER → 2022-08-28 11:43 | Outpatient (BNVA) | payer MEDICAID, SELFPAY | PROVIDERS: PCP Nurse Practitioner Family; Visit Provider Physician Assistant Surgical | DX: Z98.890 Other specified postprocedural states (principal) | CPT/HCPCS: 99212 ==

== ENCOUNTER → 2022-09-04 13:11 | Outpatient (BNVA) | payer MEDICAID, SELFPAY | PROVIDERS: PCP Nurse Practitioner Family; Visit Provider Physician Assistant Surgical ==

== ENCOUNTER 2022-09-10 12:12 | Outpatient (AMB) | payer MEDICAID, SELFPAY ==
[2022-09-10 12:12] VITALS: BP 134/60; PULSE 48; TEMP 36.3; O2SAT 98; BMI 28.2
--- NOTE | 2022-09-10 12:12 | A.OFFVIS_ITS ---
Intake VS Expanded 09/10/22 12:12 Height 5 ft 4.5 in Weight 166 lb 12.8 oz BMI 28.2 BP 134/60 Blood Pressure Location Rt brachial Blood Pressure Position Sitting Pulse 48 L Pulse Source Pulse Oximeter Temp 97.3 F Temperature Source Temporal Artery Scan Pulse Oximetry 98 Oxygen Delivery Method Room Air Body Fat 49.8 Body Fat Percentage 29.9 Free Fat Mass 116.8 Muscle Mass 110.8 Visceral Mass 8.0 Water Mass 82.6 BMR 1,551 Intake Visit Reasons: (OV) PO Panniculectomy 08/21/22 Allergies oxycodone [From Percocet] Adverse Reaction (Intermediate, Verified 09/10/22 12:16) Nausea and Vomiting HPI HPI Comments History of Present Illness Details 62 yo female s/p panniculectomy 08/21/22. Drain output decreased to 50 mLserous daily. No pain, no drainage from incision Rohit ABX and meal plan from Dr Kemal HARGROVE Medical History COVID-19 COVID-19 vaccine series completed DJD (degenerative joint disease) GERD (gastroesophageal reflux disease) Hypertension Hypothyroidism Morbid obesity Non-insulin dependent diabetes mellitus Postgastrectomy malabsorption Steatosis, liver Surgical History History of sleeve gastrectomy History of tubal ligation Hx of section Hx of colonoscopy Hx of knee surgery Hx of tonsillectomy Family History Mother No problems noted. Father No problems noted. Sister No problems noted. Sister No problems noted. Brother No problems noted. Brother No problems noted. Son No problems noted. Daughter Diabetes Obesity Daughter No problems noted. Social History Household Members: Other Household Members Other:: daughter Housing: Apartment Are you a primary career development coordinator/teacher to a significant other at home: No Do you presently have visiting nurse or other home services: No Alcohol intake: never Patient Tobacco Use Status: Never used Tobacco service: No Current occupational status: employed Physical Exam Vital Signs: Last Vital Signs Temp 97.3 F 09/10/22 12:12 Pulse 48 L 09/10/22 12:12 BP 134/60 09/10/22 12:12 Pulse Ox 98 09/10/22 12:12 Oxygen Delivery Method Room Air 09/10/22 12:12 BMI result Body Mass Index 28.2 GI Other: transverse incision healing well, no s/sx infection or dehiscence. Umbilicus viable, slight dehiscense at 6 o clock position. no infection Assessment & Plan Assessment & Plan (1) S/P panniculectomy: Code(s): Z98.890 - Other specified postprocedural states Plan: Continue plan rtc 1 week Coding Level of Care Code Global (49766) Diagnoses S/P panniculectomy Z98.890
== END 2022-09-10 12:34 | disposition home or self-care (01) ==
PROVIDERS: PCP Nurse Practitioner Family; Visit Provider Physician Assistant Surgical
DX: Z98.890 Other specified postprocedural states (principal)
CPT/HCPCS: 99024

== ENCOUNTER → 2022-09-10 12:12 | Outpatient (BNVA) | payer MEDICAID, SELFPAY | PROVIDERS: PCP Nurse Practitioner Family; Visit Provider Physician Assistant Surgical ==

== ENCOUNTER 2022-09-19 12:34 | Outpatient (AMB) | payer MEDICAID, SELFPAY ==
[2022-09-19 12:37] VITALS: BP 103/55; PULSE 52; TEMP 36.5; O2SAT 98; BMI 27.3
--- NOTE | 2022-09-19 12:37 | A.OFFVIS_ITS ---
Intake VS Expanded 09/19/22 12:37 Height 5 ft 4.5 in Weight 161 lb 9.6 oz BMI 27.3 BP 103/55 L Blood Pressure Location Rt brachial Blood Pressure Position Sitting Pulse 52 Pulse Source Pulse Oximeter Temp 97.7 F Temperature Source Temporal Artery Scan Pulse Oximetry 98 Oxygen Delivery Method Room Air Body Fat 51.8 Body Fat Percentage 32.1 Free Fat Mass 109.8 Muscle Mass 104.2 Visceral Mass 8.0 Water Mass 77.6 BMR 1,468 Intake Visit Reasons: (OV) PO Panniculectomy 08/21/22 Allergies oxycodone [From Percocet] Adverse Reaction (Intermediate, Verified 09/19/22 12:44) Nausea and Vomiting HPI HPI Comments History of Present Illness Details 62 yo female s/p panniculectomy 08/21/22 continues abx and meal plan 30-40 mL ser drainage daily PFSH Medical History COVID-19 COVID-19 vaccine series completed DJD (degenerative joint disease) GERD (gastroesophageal reflux disease) Hypertension Hypothyroidism Morbid obesity Non-insulin dependent diabetes mellitus Postgastrectomy malabsorption Steatosis, liver Surgical History History of sleeve gastrectomy History of tubal ligation Hx of section Hx of colonoscopy Hx of knee surgery Hx of tonsillectomy Family History Mother No problems noted. Father No problems noted. Sister No problems noted. Sister No problems noted. Brother No problems noted. Brother No problems noted. Son No problems noted. Daughter Diabetes Obesity Daughter No problems noted. Social History Household Members: Other Household Members Other:: daughter Housing: Apartment Are you a primary career placement services counselor to a significant other at home: No Do you presently have visiting nurse or other home services: No Alcohol intake: never Patient Tobacco Use Status: Never used Tobacco service: No Current occupational status: employed Physical Exam Vital Signs: Last Vital Signs Temp 97.7 F 09/19/22 12:37 Pulse 52 09/19/22 12:37 BP 103/55 L 09/19/22 12:37 Pulse Ox 98 09/19/22 12:37 Oxygen Delivery Method Room Air 09/19/22 12:37 BMI result Body Mass Index 27.3 GI Other: trans incision healing well 2 small areas of umbilical dehiscence at 12 and 6 o clock no evidence of infection Assessment & Plan Assessment & Plan (1) S/P panniculectomy: Code(s): Z98.890 - Other specified postprocedural states Plan: continue abx, meal plan continue binder no shower xeroform to umbilicus track drainage rtc 1 week Coding Level of Care Code Global (35061) Diagnoses S/P panniculectomy Z98.890
== END 2022-09-19 13:09 | disposition home or self-care (01) ==
PROVIDERS: PCP Nurse Practitioner Family; Visit Provider Physician Assistant Surgical
DX: Z98.890 Other specified postprocedural states (principal)
CPT/HCPCS: 99024

== ENCOUNTER → 2022-09-19 12:34 | Outpatient (BNVA) | payer MEDICAID, SELFPAY | PROVIDERS: PCP Nurse Practitioner Family; Visit Provider Physician Assistant Surgical ==

== ENCOUNTER 2022-09-26 12:48 | Outpatient (AMB) | payer MEDICAID, SELFPAY ==
[2022-09-26 12:55] VITALS: BP 135/63; PULSE 51; TEMP 36.7; O2SAT 100
--- NOTE | 2022-09-26 12:55 | MHC.OFFVISWM ---
Intake VS Expanded 09/26/22 12:55 BP 135/63 Blood Pressure Location Rt brachial Blood Pressure Position Sitting Pulse 51 Pulse Source Pulse Oximeter Temp 98.1 F Temperature Source Temporal Artery Scan Pulse Oximetry 100 Oxygen Delivery Method Room Air Intake Visit Reasons: (OV) PO Panniculectomy 08/21/22 Allergies oxycodone [From Percocet] Adverse Reaction (Intermediate, Verified 09/19/22 12:44) Nausea and Vomiting HPI HPI Comments History of Present Illness Details 62 yo female s/p panniculectomy 08/21/22. Drain output 10-15 mL over the last 4 days daily No pain continues abx, meal plan no complaints Had mild transient fullness suprapubic region x 1 day PFSH Medical History COVID-19 COVID-19 vaccine series completed DJD (degenerative joint disease) GERD (gastroesophageal reflux disease) Hypertension Hypothyroidism Morbid obesity Non-insulin dependent diabetes mellitus Postgastrectomy malabsorption Steatosis, liver Surgical History History of sleeve gastrectomy History of tubal ligation Hx of section Hx of colonoscopy Hx of knee surgery Hx of tonsillectomy Family History Mother No problems noted. Father No problems noted. Sister No problems noted. Sister No problems noted. Brother No problems noted. Brother No problems noted. Son No problems noted. Daughter Diabetes Obesity Daughter No problems noted. Social History Household Members: Other Household Members Other:: daughter Housing: Apartment Are you a primary inspector health care facilities to a significant other at home: No Do you presently have visiting nurse or other home services: No Alcohol intake: never Patient Tobacco Use Status: Never used Tobacco service: No Current occupational status: employed Physical Exam Vital Signs: Last Vital Signs Temp 98.1 F 09/26/22 12:55 Pulse 51 09/26/22 12:55 BP 135/63 09/26/22 12:55 Pulse Ox 100 09/26/22 12:55 Oxygen Delivery Method Room Air 09/26/22 12:55 GI Other: transverse incision no dehiscence, no drainage drain suture dislodged, drain out approx 3 cm, suction intact ser drainage in collection bulb umbilicus viable and healing well 12 oclock 2 mm dehiscence healing nicely Assessment & Plan Assessment & Plan (1) S/P panniculectomy: Code(s): Z98.890 - Other specified postprocedural states Plan: drain removed no shower x 48 hrs continue abx another week continue meal plan and may walk outside w abd binder no lifting over 5 pounds rtc 2 weeks Coding Level of Care Code Global (39943) Diagnoses S/P panniculectomy Z98.890
== END 2022-09-26 13:18 | disposition home or self-care (01) ==
PROVIDERS: PCP Nurse Practitioner Family; Visit Provider Physician Assistant Surgical
DX: Z98.890 Other specified postprocedural states (principal)
CPT/HCPCS: 99024

== ENCOUNTER → 2022-09-26 12:48 | Outpatient (BNVA) | payer MEDICAID, SELFPAY | PROVIDERS: PCP Nurse Practitioner Family; Visit Provider Physician Assistant Surgical ==

== ENCOUNTER 2022-10-07 14:56 | Outpatient (AMB) | payer MEDICAID, SELFPAY ==
--- NOTE | 2022-10-07 14:57 | MHC.OFFVISWM ---
Intake VS Expanded 10/07/22 15:03 Height 5 ft 4.5 in Weight 163 lb 3.2 oz BMI 27.6 BP 138/63 Blood Pressure Location Lt brachial Blood Pressure Position Sitting Pulse 60 Pulse Source Pulse Oximeter Temp 97.8 F Temperature Source Tympanic Pulse Oximetry 98 Oxygen Delivery Method Room Air Body Fat 49.8 Body Fat Percentage 30.5 Free Fat Mass 113.4 Muscle Mass 107.6 Visceral Mass 8.0 Water Mass 80.2 BMR 1,508 Intake Visit Reasons: (OV) PO Panniculectomy 08/21/22 Allergies oxycodone [From Percocet] Adverse Reaction (Intermediate, Verified 10/07/22 15:07) Nausea and Vomiting HPI HPI Comments History of Present Illness Details 62 yo female s/p panniculectomy 08/21/22. No complaints, no fluid collection Rohit meal plan. [facility] Medical History COVID-19 COVID-19 vaccine series completed DJD (degenerative joint disease) GERD (gastroesophageal reflux disease) Hypertension Hypothyroidism Morbid obesity Non-insulin dependent diabetes mellitus Postgastrectomy malabsorption Steatosis, liver Surgical History History of sleeve gastrectomy History of tubal ligation Hx of section Hx of colonoscopy Hx of knee surgery Hx of tonsillectomy Family History Mother No problems noted. Father No problems noted. Sister No problems noted. Sister No problems noted. Brother No problems noted. Brother No problems noted. Son No problems noted. Daughter Diabetes Obesity Daughter No problems noted. Social History Household Members: Other Household Members Other:: daughter Housing: Apartment Are you a primary patient care associate to a significant other at home: No Do you presently have visiting nurse or other home services: No Alcohol intake: never Patient Tobacco Use Status: Never used Tobacco service: No Current occupational status: employed Physical Exam Vital Signs: Last Vital Signs Temp 97.8 F 10/07/22 15:03 Pulse 60 10/07/22 15:03 BP 138/63 10/07/22 15:03 Pulse Ox 98 10/07/22 15:03 Oxygen Delivery Method Room Air 10/07/22 15:03 BMI result Body Mass Index 27.6 GI Other: transverse incision c/d/i. Umbilicus viable, 2 mm are of dehiscence at 12 o clock healing nicely Assessment & Plan Assessment & Plan (1) S/P panniculectomy: Code(s): Z98.890 - Other specified postprocedural states Plan: No lifting > 10 pounds x 2 months, no abdominal exercises x 3 months May start walking with abd binder continue meal plan of 2 premier protein shkes 1 scoop each and a bar (pure protein) and a meal w 4 forks protein and 4 forks veg or 3 shakes and a meal rtc 2 weeks Coding Level of Care Code Global (35013) Diagnoses S/P panniculectomy Z98.890
[2022-10-07 15:03] VITALS: BP 138/63; PULSE 60; TEMP 36.6; O2SAT 98; BMI 27.6
== END 2022-10-07 15:37 | disposition home or self-care (01) ==
LOC: HO.HBS 14:56
PROVIDERS: PCP Nurse Practitioner Family; Visit Provider Physician Assistant Surgical
DX: Z98.890 Other specified postprocedural states (principal)
CPT/HCPCS: 99024

== ENCOUNTER → 2022-10-07 14:56 | Outpatient (BNVA) | payer MEDICAID, SELFPAY | PROVIDERS: PCP Nurse Practitioner Family; Visit Provider Physician Assistant Surgical ==

== ENCOUNTER 2022-10-29 15:22 | Outpatient (AMB) | payer MEDICAID, SELFPAY ==
--- NOTE | 2022-10-29 15:27 | A.OFFVIS_ITS ---
Intake VS Expanded 10/29/22 15:31 Height 5 ft 4.5 in BP 126/70 Blood Pressure Location Rt brachial Blood Pressure Position Sitting Pulse 64 Pulse Source Pulse Oximeter Temp 97.8 F Temperature Source Temporal Artery Scan Pulse Oximetry 98 Oxygen Delivery Method Room Air Intake Visit Reasons: (OV) PO Panniculectomy 08/21/22 Allergies oxycodone [From Percocet] Adverse Reaction (Intermediate, Verified 10/29/22 15:32) Nausea and Vomiting HPI HPI Comments History of Present Illness Details 62 yo female s/p panniculectomy on 08/21/22, approx 2 months post op. 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 Father No problems noted. Sister No problems noted. Sister No problems noted. Brother No problems noted. Brother No problems noted. Son No problems noted. Daughter Diabetes Obesity Daughter No problems noted. Social History Household Members: Other Household Members Other:: daughter Housing: Apartment Are you a primary nursing care partner to a significant other at home: No Do you presently have visiting nurse or other home services: No Alcohol intake: never Patient Tobacco Use Status: Never used Tobacco service: No Current occupational status: employed Physical Exam Vital Signs: Last Vital Signs Temp 97.8 F 10/29/22 15:31 Pulse 64 10/29/22 15:31 BP 126/70 10/29/22 15:31 Pulse Ox 98 10/29/22 15:31 Oxygen Delivery Method Room Air 10/29/22 15:31 GI Inspection: Yes incision (c/d/i, no fluctuance, umbilicus healed well) Assessment & Plan Assessment & Plan (1) S/P panniculectomy: Code(s): Z98.890 - Other specified postprocedural states Plan: 2 months post op panniculectomy Continue meal plan. No abdominal exercises for three months total May continue to walk RTC end of october Coding Level of Care Code Global (81269) Diagnoses S/P panniculectomy Z98.890
[2022-10-29 15:31] VITALS: BP 126/70; PULSE 64; TEMP 36.6; O2SAT 98
== END 2022-10-29 15:40 | disposition home or self-care (01) ==
PROVIDERS: PCP Nurse Practitioner Family; Visit Provider Physician Assistant Surgical
DX: Z98.890 Other specified postprocedural states (principal)
CPT/HCPCS: 99024

== ENCOUNTER → 2022-10-29 15:22 | Outpatient (BNVA) | payer MEDICAID, SELFPAY | PROVIDERS: PCP Nurse Practitioner Family; Visit Provider Physician Assistant Surgical ==

== ENCOUNTER 2022-11-27 15:23 | Outpatient (AMB) | payer MEDICAID, SELFPAY ==
--- NOTE | 2022-11-27 15:27 | A.OFFVIS_ITS ---
Intake VS Expanded 11/27/22 15:29 Height 5 ft 4.5 in Weight 162 lb BMI 27.4 BP 139/70 Blood Pressure Location Rt brachial Blood Pressure Position Sitting Pulse 61 Pulse Source Pulse Oximeter Temp 97.5 F Temperature Source Temporal Artery Scan Pulse Oximetry 100 Oxygen Delivery Method Room Air Body Fat 50.8 Body Fat Percentage 31.3 Free Fat Mass 111.2 Muscle Mass 105.4 Visceral Mass 8.0 Water Mass 78.8 BMR 1,482 Intake Visit Reasons: (OV) PO Panniculectomy 08/21/22 [employer]gr[employer] Internship Required: No Allergies oxycodone [From Percocet] Adverse Reaction (Intermediate, Verified 11/27/22 15:28) Nausea and Vomiting Medication List - Last Reconciled 11/27/22 by HONG Davis calcium citrate-vitamin D3 315 mg-5 mcg (200 unit) (Calcium Citrate + D) 1 tab PO BID clotrimazole 1% 1 appl topical BID docusate sodium (Colace) 100 mg PO DAILY levothyroxine 1 tab PO DAILY mirabegron ER (Myrbetriq) 25 mg PO DAILY npnxrkugklyi-bni-riqe-FA-vit K 45 mg iron- 800 mcg-120 mcg (Bariatric Multivitamins) 1 cap PO DAILY vitamin A palmitate 10,000 units PO DAILY HPI HPI Comments History of Present Illness Details 62 year old female [facility] months after her panniculectomy performed on 08/21/2022. She states that she is doing very well and has no significant complaints except for mild numbness in the suprapubic region. [facility] Medical History Postgastrectomy malabsorption Steatosis, liver GERD (gastroesophageal reflux disease) COVID-19 COVID-19 vaccine series completed DJD (degenerative joint disease) Hypothyroidism Hypertension Non-insulin dependent diabetes mellitus Morbid obesity Surgical History History of sleeve gastrectomy History of tubal ligation Hx of tonsillectomy Hx of knee surgery Hx of colonoscopy Hx of section Family History Mother No problems noted. Father No problems noted. Sister No problems noted. Sister No problems noted. Brother No problems noted. Brother No problems noted. Son No problems noted. Daughter Diabetes Obesity Daughter No problems noted. Social History Household Members: Other Household Members Other:: daughter Housing: Apartment Are you a primary human services care specialist to a significant other at home: No Do you presently have visiting nurse or other home services: No Alcohol intake: never Patient Tobacco Use Status: Never used Tobacco service: No Current occupational status: employed Physical Exam Vital Signs: Last Vital Signs Temp 97.5 F 11/27/22 15:29 Pulse 61 11/27/22 15:29 BP 139/70 11/27/22 15:29 Pulse Ox 100 11/27/22 15:29 Oxygen Delivery Method Room Air 11/27/22 15:29 BMI result Body Mass Index 27.4 GI Inspection: Yes incision (Well-healed. No evidence of fluid accumulation or incisional dehiscence.) Assessment & Plan Assessment & Plan (1) S/P panniculectomy: Code(s): Z98.890 - Other specified postprocedural states Plan: Patient may return to her usual exercise regimen including walking. She is sc heduled to travel next month with her alevism and is able to do so. She may return to the clinic at any time. She is overall very satisfied with the results of her procedure. Coding Level of Care Code Est Pt Level 3 (10722) Diagnoses S/P panniculectomy Z98.890
[2022-11-27 15:29] VITALS: BP 139/70; PULSE 61; TEMP 36.4; O2SAT 100; BMI 27.4
== END 2022-11-27 16:13 | disposition home or self-care (01) ==
PROVIDERS: PCP Nurse Practitioner Family; Visit Provider Physician Assistant Surgical
DX: E66.3 Overweight (principal); Z68.27 Body mass index [BMI] 27.0-27.9, adult; Z90.3 Acquired absence of stomach [part of]; Z98.84 Bariatric surgery status; L98.7 Excessive and redundant skin and subcutaneous tissue
CPT/HCPCS: 99213

== ENCOUNTER → 2022-11-27 15:23 | Outpatient (BNVA) | payer MEDICAID, SELFPAY | PROVIDERS: PCP Nurse Practitioner Family; Visit Provider Physician Assistant Surgical | DX: Z09 Encounter for follow-up examination after completed treatment for conditions other than malignant neoplasm (principal) | CPT/HCPCS: 99212 ==

== ENCOUNTER 2024-06-06 12:54 | Outpatient (AMB) | payer OTHER, SELFPAY ==
[2024-06-06 12:57] VITALS: BP 145/77; PULSE 57; TEMP 36.5; O2SAT 99; BMI 30.8
--- NOTE | 2024-06-06 12:57 | MHC.OFFVISWM ---
VS Expanded 06/06/24 12:57 BP 145/77 H Blood Pressure Location Rt brachial Blood Pressure Position Sitting Pulse 57 Pulse Source Pulse Oximeter Temp 97.7 F Temperature Source Temporal Artery Scan Pulse Oximetry 99 Oxygen Delivery Method Room Air Height 5 ft 4.5 in Weight 182 lb 8 oz BMI 30.8 Body Fat % 39.4 Body Fat Mass 72.0 Fat Free Mass 110.6 Visceral Fat Rating 11.0 Body Water % 42.8 Body Water Mass 78.2 Muscle Mass/Score 105.2 Basal Metabolic Rate/Score 1,512 Intake Visit Reasons: (OV) PO LSG 11/01/20 *GLP-1* Campus Aide Required: No Allergies oxycodone [From Percocet] Adverse Reaction (Intermediate, Verified 06/06/24 12:57) Nausea and Vomiting Medication List - Last Reconciled 06/06/24 by HONG Davis calcium citrate-vitamin D3 315 mg-5 mcg (200 unit) (Calcium Citrate + D) 1 tab PO BID docusate sodium (Colace) 100 mg PO DAILY levothyroxine 1 tab PO DAILY mirabegron ER 50 mg PO DAILY bqvpjylbncwi-xvy-jguc-FA-vit K 45 mg iron- 800 mcg-120 mcg (Bariatric Multivitamins) 1 cap PO DAILY HPI Comments Details: The patient is a 64-year-old female who returns to the office today in follow-up. She is status post sleeve gastrectomy performed on 11/01/2020 and panniculectomy performed on 08/21/2022. She was last seen in the office on 11/27/2022 with a weight of 162 lb and a BMI of 27.4. Weight today is 182.8 lb with a BMI of 30.9. She states just got back from 2 weeks in [place] he generally has been trying to follow a healthy diet and exercise although over the last 2 weeks did have bread and cheese although she was walking a lot while visiting the country. taking celebrate mvi and nicol + D. She wishes to start a new meal plan. Previously using Premier protein powder meal plan: coffee eggs yogurt salad w eggs/tuna Drinking 48 oz water Exercise plan: Walking outside 2-4 mi when weather is nice video 30 min at home Any post op complications: none DOUG: never DM: never HTN: resolved Hyperlipidemia: never GERD:?0-5 scale ??0 = no symptoms ??1 = symptoms noticeable but not bothersome 2 =symptoms bothersome but not daily ? 3 = symptoms bothersome and daily 4 = symptoms affect daily activities 5 = symptoms are incapacitating, unable to do daily activities ? How bad is the heartburn: 0 ? Heartburn while lying down: 0 ? Heartburn when standing up: 0 ? Heartburn after meals: 0 ? Does heartburn change your diet: 0 ? Does heartburn wake you up from sleep: 0 ? Do you have difficulty swallowin ? Do you have pain with swallowin ? If you take medicine for your reflux, does this affect your daily life: 0 Satisfaction with present condition - satisfied or not satisfied: satisfied [facility] Medical History Postgastrectomy malabsorption Steatosis, liver GERD (gastroesophageal reflux disease) COVID-19 COVID-19 vaccine series completed DJD (degenerative joint disease) Hypothyroidism Hypertension Non-insulin dependent diabetes mellitus Morbid obesity Surgical History History of sleeve gastrectomy History of tubal ligation Hx of tonsillectomy Hx of knee surgery Hx of colonoscopy Hx of section Family History Mother No problems noted. Father No problems noted. Sister No problems noted. Sister No problems noted. Brother No problems noted. Brother No problems noted. Son No problems noted. Daughter Diabetes Obesity Daughter No problems noted. Social History Household Members: Other Household Members Other:: daughter Housing: Apartment Are you a primary health care facilities inspector to a significant other at home: No Do you presently have visiting nurse or other home services: No Alcohol intake: never Patient Tobacco Use Status: Never used Tobacco service: No Current occupational status: employed Physical Exam Vital Signs: Last Vital Signs Temp 97.7 F 06/06/24 12:57 Pulse 57 06/06/24 12:57 BP 145/77 H 06/06/24 12:57 Pulse Ox 99 06/06/24 12:57 Oxygen Delivery Method Room Air 06/06/24 12:57 BMI result Body Mass Index 30.8 Const General: cooperative and no acute distress Orientation/consciousness: patient oriented x3 Resp Effort & Inspection: normal respiratory effort Auscultation: clear to auscultation bilaterally Cardio Rate: regular rate Rhythm: regular rhythm GI Inspection: Yes normal to inspection and Yes incision (well healed) Palpation (GI): Soft to palpation and no masses Neuro General: patient oriented x3 Assessment & Plan Assessment & Plan (1) S/P laparoscopic sleeve gastrectomy: Code(s): Z98.84 - Bariatric surgery status Category: Surgical Plan: We will start new meal plan based upon waking at 07:00 in bed around 23:00 8-10 shake, Premier protein powder, 1 scoop mixed in 8 oz of unsweetened almond milk 12 Maltese yogurt 2-4 another shake 5 pm meal with 6 forks of protein and 6 forks of vegetables Encouraged to exercise daily, increase pace and track calories burned. Goal of 300 per day or 2000 per week. Check yearly postop labs. She continues on multivitamin and calcium plus D. Return to clinic 6 weeks Encouraged to text weekly her weight is and with any questions or concerns Orders: Orders Insulin Today E03.9 - Hypothyroidism, unspecified, E50.9 - Vitamin A deficiency, unspecified, I10 - Essential (primary) hypertension, Z98.84 - Bariatric surgery status Lipid Panel Today E03.9 - Hypothyroidism, unspecified, E50.9 - Vitamin A deficiency, unspecified, I10 - Essential (primary) hypertension, Z98.84 - Bariatric surgery status Vitamin B12 and Folate Today E03.9 - Hypothyroidism, unspecified, E50.9 - Vitamin A deficiency, unspecified, I10 - Essential (primary) hypertension, Z98.84 - Bariatric surgery status C Reactive Protein Today E03.9 - Hypothyroidism, unspecified, E50.9 - Vitamin A deficiency, unspecified, I10 - Essential (primary) hypertension, Z98.84 - Bariatric surgery status Vitamin B1 Today E03.9 - Hypothyroidism, unspecified, E50.9 - Vitamin A deficiency, unspecified, I10 - Essential (primary) hypertension, Z98.84 - Bariatric surgery status Vitamin A Today E03.9 - Hypothyroidism, unspecified, E50.9 - Vitamin A deficiency, unspecified, I10 - Essential (primary) hypertension, Z98.84 - Bariatric surgery status Ferritin Today E03.9 - Hypothyroidism, unspecified, E50.9 - Vitamin A deficiency, unspecified, I10 - Essential (primary) hypertension, Z98.84 - Bariatric surgery status Hemoglobin A1c Today E03.9 - Hypothyroidism, unspecified, E50.9 - Vitamin A deficiency, unspecified, I10 - Essential (primary) hypertension, Z98.84 - Bariatric surgery status Complete Blood Count Auto Diff Today E03.9 - Hypothyroidism, unspecified, E50.9 - Vitamin A deficiency, unspecified, I10 - Essential (primary) hypertension, Z98.84 - Bariatric surgery status IRON PROFILE Today E03.9 - Hypothyroidism, unspecified, E50.9 - Vitamin A deficiency, unspecified, I10 - Essential (primary) hypertension, Z98.84 - Bariatric surgery status Comprehensive Met. Panel Today E03.9 - Hypothyroidism, unspecified, E50.9 - Vitamin A deficiency, unspecified, I10 - Essential (primary) hypertension, Z98.84 - Bariatric surgery status Zinc Today E03.9 - Hypothyroidism, unspecified, E50.9 - Vitamin A deficiency, unspecified, I10 - Essential (primary) hypertension, Z98.84 - Bariatric surgery status TSH reflex Free T4 Today E03.9 - Hypothyroidism, unspecified, E50.9 - Vitamin A deficiency, unspecified, I10 - Essential (primary) hypertension, Z98.84 - Bariatric surgery status Vitamin D 25-OH Total Today E03.9 - Hypothyroidism, unspecified, E50.9 - Vitamin A deficiency, unspecified, I10 - Essential (primary) hypertension, Z98.84 - Bariatric surgery status
--- OUTSIDE RECORDS SUMMARY | 2024-06-06 15:15 | XMS_ITS | Clinical Summary ---
Author Organization [facility] Address [address] [place] [address] Care Team Providers Care Blast Furnace Tender Name Role Phone Umm Fuentes [facility] Primary Care Provider [phone] Source Comments PLEASE NOTE, if this patient is a minor, it may be UNLAWFUL to discuss sensitive information that is contained in these records (such as FAMILY PLANNING, MENTAL HEALTH or SUBSTANCE ABUSE) with the minor patient's parent or other person without the patient's specific authorization.[facility] Allergies Active Allergy Reactions Criticality Noted Date Comments Oxycodone 03/06/2023 Medications acetaminophen (TYLENOL) 500 mg tabletIndications: Primary osteoarthritis of both knees Take 1 Tab by mouth every 8 (eight) hours as needed for pain Max 6 tabs per day 60 Tab 2 0 Active chlorhexidine (PERIDEX) 0.12 % solutionIndication s:Chronic gingivitis, plaque induced Swish and spit 15 mL 2 (two) times daily 473 mL 4 Active MYRBETRIQ 50 mg Tb24 Take 50 mg by mouth once daily Active levothyroxine 50 mcg tabletIndications: Hypothyroidism, unspecified type Take 1 Tablet by mouth once daily 90 Tablet 2 5 Active levothyroxine 50 mcg tabletIndications: Hypothyroidism, unspecified type TAKE 1 TABLET BY MOUTH EVERY DAY 90 Tablet 1 5 05/12/19 25 Discontinu ed(Reorder (E-Cancel Not Sent)) Active Problems Problem Noted Date Diagnosed Date S/P panniculectomy 12/02/2022 Bradycardia 10/27/2021 Overview (10/27/2021): 06/2021: Holter monitor 48 hours: sinus rhythm with bradycardia. Heart rate range from 43-140 bpm Osteoarthritis 06/19/2021 Sinus bradycardia on ECG 03/25/2021 Strain of mid-back 03/25/2021 History of bariatric surgery: gastric sleeve on 10/202011/27/2020 COVID-19: 03/202004/11/2020 History of vascular surgery: 05/10/2019 at [facility]: 0 07/12/2019 Overview (07/12/2019): Surgery of bilateral saphenous Vein radio ablation: at [facility]: 05/10/2019 Varicose veins of both lower extremities with pa in 05/17/2018 Spondylolisthesis at L4-L5 level 05/17/2018 Overview (05/17/2018): 04/22/2017 Grade 1 spondylolisthesis at L4-L5 measuring 4.5 mm which has developed since the previous exam. Other specified hypothyroidism 05/14/2018 Plantar fasciitis of left foot 05/14/2018 Overview (05/14/2018): [facility] Surgery was on 09/25/2017 Venous insufficiency 05/14/2018 Obesity due to excess calories 05/14/2018 Calcaneal spur of left foot 05/14/2018 H/O mammogram 05/14/2018 Overview (05/14/2018): Normal mammogram 08/2017. Due 08/2018. 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 Resolved Problems Problem Noted Date Diagnosed Date Resolved Date Essential hypertension 08/16/201903/25 Type 2 diabetes mellitus ([facility]) 05/12/2018 03/25/2021 Encounters Date Type Department Care Team Description 05/11/2024 Interim Notes [facility] [address] [place] [phone] Esperanza Santos FNP Hypothyroidism, unspecified type 05/02/2024 3:40 PM EST Office Visit [facility] [address] [place] [phone] Jadiel Angelo RDH Encounter for dental examination (Primary Dx) 04/22/2024 8:40 AM EST Office Visit [address] [phone] Esperanza Santos FNP Annual physical exam (Primary Dx); Hypothyroidism, unspecified type; Encounter for screening mammogram for malignant neoplasm of breast; BMI 29.0-29.9,adult; Screening for endocrine disorder; Screening for cervical cancer from Last 3 Months Immunizations Immunization Administration Dates Next Due Flu, Adjuvant, 65y+ (Fluad) 11/08/2019 Flu, Preservative Free 11/15/2020,11/26/2018 Hep B,adult,adjuvanted (HEPLISAV) 01/17/2021,,01/17/2020 Moderna COVID-19 Vaccine, re d cap blue label, 12+ Primary Series 01/17/2021,04/19/2020,03/23/2020 PFIZER COVID VACCINE, PURPLE CAP, 12+ 06/14/2021 Pfizer-BioNTech COVID-19 Vac cine Bivalent, (BLACKMAN PFIZER-BIONTECH COVID-19 VACCINE BIVALENT, (BLACKMAN CAP 01/30/2023 TDAP 05/11/2018 ZOSTER VACCINE, RECOMBINANT (SHINGRIX) 0,01/17/2020 Family History Medical History Relation Name Comments Hypertension Father Diabetes Mother Hypertension Mother Stroke Mother Cancer Sister uterine Relation Name Status Comments Father Mother Sister Social History Tobacco Use Types Packs/Day Years Used Date Smoking Tobacco: Never Smokeless Tobacco: Never Tobacco Cessation:Counseling Given: Not Answered Alcohol Use Standard Drinks/Week Comments Yes 0 (1 standard drink = 0.6 oz pur e alcohol) occassionally Social Connections Answer Date Recorded Connectedness 0 11/21/2023 Financial Resource Strain Answer Date R ecorded Financial Resource Strain 0 2018 Stress Answer Date Recorded Stress 0 10/18/2018 Physical Activity Answer Date Recorded Physical Activity 0 10/18/2018 Food Insecurity Answer Date Recorded Food 0 11/26/2023 Transportation Needs Answer Date Record ed Transportation 0 10/18/2018 Housing Stability Answer Date Recorded Housing 0 10/18/2018 Safety and Environment Answer Date Brant rded Safety 0 10/18/2018 Utilities Answer Date Recorded Utilities 0 10/18/2018 Employment Answer Date Recorded Stress 0 11/21/2023 Comments No Sex and Gender Information Value Date Recorded Sex Assigned at Female 05/17/2018 10:40 AM PDT Legal Sex Female 7:42 AM PDT Gender Identity Female 05/17/2018 10:40 AM PDT Sexual Orientation Straight 05/17/2018 10 :40 AM PDT Last Filed Vital Signs Vital Sign Reading Time Taken Comments Blood Pressure 124/84 04/22/2024 9:05 AM EST Pulse 64 04/22/2024 9:05 AM EST Temperature 36.9 ??C (98.4 ??F) 04/22/2024 9:05 AM ES T Respiratory Rate 16 04/22/2024 9:05 AM EST Oxygen Saturation 98% 04/22/2024 9:05 AM EST Inhaled Oxygen Concentration - - Weight 83.5 kg (184 lb) 04/22/2024 9:05 AM EST Height 167.6 cm (5' 6 ) 04/22/2024 9:05 AM EST Body Mass Index 29.7 04/22/2024 9:05 AM EST Plan of Treatment Upcoming Encounters Date Type Department Care Team (Late st Contact Info) Description 06/22/2024 3:40 PM EDT Office Visit [address] [phone] Awilda Coleman, [address] [address] 06/29/2024 3:40 PM EDT Office Visit [address] [phone] [place] [address] [place] [phone] 11/08/2024 3:40 PM EDT Office Visit [address] [phone] Jadiel Angelo [facility] [address] [place] [address] Health Maintenance Due Date Last Done Comments Anxiety Screening [address] CT Colonography 2005 Colonoscopy 2005 Flexible Sigmoidoscopy 2005 Breast Cancer Screening (Mammogram) 04/10/2024 04/10/2023, 04/10/2023, 04/07/2022, Additional history exists FIT/gFOBT 05/05/2024 05/06/2023 Cervical Cancer Screening 01/17/2025 HPV Screening 01/17/2025 01/18/2020 Pap + HPV 01/17/2025 01/18/2020 Pap Smear 01/17/2025 01/18/2020, 01/18/2020 Annual Preventive Care Visit 04/22/2025, 03/06/2023, 10/08/2021, Additional history exists Diabetes Screening 04/22/2025 04/22/2024, 0 04/22/2024, 03/07/2023, Additional history exists Hypertension Screening (#1) 04/22/2025 TSH Monitoring 04/22/2025 04/22/2024, 08/2023, 03/15/2021, Additional history exists Tobacco Screening 04/22/2025 04/22/2024 Dental BW 05/04/2025 05/02/2024, 08/30, 03/14/2023 Dental Examination 05/04/2025 05/02/2024, 0 09/15/2023, 03/14/2023 Dental Perio Charting 05/04/2025 05/02/2024, 024 Dental Prophy 05/04/2025 05/02/2024, 0708/2023, 03/14/2023 Colorectal Cancer Screening 05/19/2026 Fecal DNA 05/19/2026 05/20/2023, 05/06/2023 Imm-DTaP/Tdap/Td (2 - Td or Tdap) 05/11/2028 019 Dental FMX/Pano 10/24/2028 10/23/2023 Lipid Screening 04/22/2029 04/22/2024, 08/2023, 03/15/2021, Additional history exists HIV Screening Completed 05/11/2018 Hepatitis C Screening Completed 05/11/2018 Imm-Zoster, Recombinant Completed 02/15/2020, 01/16 [id number] Completed 11/08/2023, 03/2022, 06/14/2021, Additional history exists Imm-Influenza Completed 11/08/2023, 03/2022, 11/15/2020, Additional history exists Alcohol and Drug Screen Completed 04/22/19 25, 10/02/2023, 10/08/2021, Additional history exists Depression Annual Screen Completed 04/22/2024 Cervical Ablation/Cold-Knife Conization Discontinued Cervical Cryotherapy Discontinued Colposcopy Discontinued Endometrial Biopsy Discontinued Excision/Leep Discontinued HPV Genotyping Discontinued Vaginal Pap Discontinued Vulvoscopy Discontinued Procedures Procedure Name Priority Date/Time Associated Diagnosis Comments DENTAL CASE MANAGEMENT - MOTIVATIONAL INTV Routine 05/02/2024 3:40 PM EST Encounter for dental examination PROPHYLAXIS - ADULT Routine 05/02/2024 3 :40 PM EST Encounter for dental examination BITEWINGS - FOUR RADIOGRAPHIC IMAGES Routine 05/02/2024 3:40 PM EST Encounter for dental examination COMP PERIODONTAL EVALUATION - NEW/EST PATIENT Routine 05/02/2024 3:40 PM EST Encounter for dental examination PERIODIC ORAL EVALUATION ESTABLISHED PATIENT Routine 05/02/2024 3:40 PM EST Encounter for dental examination CARIES RISK ASSESSMENT & DOC FINDING MOD RISK Routine 05/02/2024 3:40 PM EST Encounter for dental examination NUTRITIONAL COUNSELING CONTROL OF DENTAL DISEASE Routine 05/02/2024 3:40 PM EST Encounter for dental examination ORAL HYGIENE INSTRUCTIONS Routine 05/02/2024 3:40 PM EST Encounter for dental examination ORAL CANCER SCREENING Routine 05/02/2024 3:40 PM EST Encounter for dental examination CASE PRESENTATION SUBS DTL & EXTENSIVE TX PLN Routine 05/02/2024 3:40 PM EST Encounter for dental examination COMPREHENSIVE METABOLIC PANEL Routine 04/22/2024 9:52 AM EST Screening for endocrine disorder BLOOD COUNT COMPLETE AUTO&AUTO DIFRNTL WBC Routine 04/22/2024 9:52 AM EST Screening for endocrine disorder LIPIDS W RFLX TO DIRECT LDL Routine 04/22/2024 9:52 AM EST Screening for endocrine disorder HGA1C W/EAG Routine 04/22/2024 9:52 AM EST Screening for endocrine disorder TSH W/RFLX FREE T4 Routine 04/22/2024 9: 52 AM EST Hypothyroidism, unspecified type PANORAMIC RADIOGRAPHIC IMAGE Routine 10/23/2023 3:40 PM EDT Localized gingivitis COLOGUARD Routine 05/06/2023 3:00 AM EST Annual physical exam Colon cancer screening REFERRAL FOR MAMMOGRAM Routine 04/10/2023 3:00 AM EST Encounter for screening mammogram for malignant neoplasm of breast PAP, LIQUID BASED Routine 01/18/2020 4:2 6 PM EST Well woman exam with routine gynecological exam PAP SMEAR W/HPV, ABSTRACTED Routine 01/18/2020 1:00 AM EST ANTIBODY HIV-1&HIV-2 SINGLE RESULT Routine 05/11/2018 11:58 AM EDT Physical exam HEPATITIS A,B,C PANEL Routine 05/11/2018 11:58 AM EDT Physical exam from Last 3 Months or Most Recently Relevant to Health Maintenance Results * (ABNORMAL) HGA1C W/EAG (04/22/2024 9:52 AM EST) HEMOGLOBIN A1C 5.7(H) <5.7 % of total Hgb [employer] Comment: For someone without known diabetes, a hemoglobin A1c value between 5.7% and 6.4% is consistent with prediabetes and should be confirmed with a follow-up test. For someone with known diabetes, a value <7% indicates that their diabetes is well controlled. A1c targets should be individualized based on duration of diabetes, age, comorbid conditions, and other considerations. This assay result is consistent with an increased risk of diabetes. Currently, no consensus exists regarding use of hemoglobin A1c for diagnosis of diabetes for children. EAG (MG/DL) 117 mg/dL [employer] EAG (MMOL/L) 6.5 mmol/L [employer] [facility] Blood Blood / Unknown 04/22/2024 9 :52 AM EST 04/22/2024 9:52 AM EST Narrative [employer] - 04/23/2024 7:27 AM EST FASTING:YES us Esperanza Santos [facility] LAB - BLOOD DRAW Final Result Performing Organization Address [facility]/ZIP [place] [address], [facility] [address] [address] * TSH W/RFLX FREE T4 (04/22/2024 9:52 AM EST) TSH W/REFLEX TO FT4 2.52 0.40 - 4.50 mIU/L [facility] Blood Blood / Unknown 04/22/2024 9 :52 AM EST 04/22/2024 9:52 AM EST Narrative [facility] - 04/23/2024 7:27 AM EST FASTING:YES Esperanza Santos [facility] LAB - BLOOD DRAW Edited Resul t - Final Performing Organization Address [facility] Co de Phone Number [facility] [address] [address], [facility] [address] [address] * LIPIDS W RFLX TO DIRECT LDL (04/22/2024 9:52 AM EST) CHOLESTEROL, TOTAL 181 <200 mg/dL [facility] HDL CHOLESTEROL 81 > OR = 50 mg/dL [facility] TRIGLYCERIDES 46 <150 mg/dL [facility] LDL-CHOLESTEROL 86 99 mg/dL (calc) [facility] Comment: Reference range: <100 Desirable range <100 mg/dL for primary prevention; ?? <70 mg/dL for patients with CHD or diabetic patients with > or = 2 CHD risk factors. LDL-C is now calculated using the Carter calculation, which is a validated novel method providing better accuracy than the Friedewald equation in the estimation of LDL-C. [place] REYNA et al. LEÓN. 2013;310(19): 8693-1607 (http://education.[employer]/faq/RDH389) CHOL/HDLC RATIO 2.2 <5.0 (calc) [facility] NON-HDL CHOLESTEROL 100 <130 mg/dL (calc) [facility] Comment: For patients with diabetes plus 1 major ASCVD risk factor, treating to a non-HDL-C goal of <100 mg/dL (LDL-C of <70 mg/dL) is considered a therapeutic option. Blood Blood / Unknown 04/22/2024 9 :52 AM EST 04/22/2024 9:52 AM EST Narrative [employer] [facility] - 04/23/2024 7:27 AM EST FASTING:YES Esperanza Sarayad [facility] - BLOOD DRAW Final Result [facility] [address] [address], [facility] [address] [address] * BLOOD COUNT COMPLETE AUTO&AUTO DIFRNTL WBC (04/22/2024 9:52 AM EST) WHITE BLOOD CELL COUNT 4.5 3.8 - 10.8 Thousand/ uL [facility] RED BLOOD CELL COUNT 4.96 3.80 - 5.10 Million/u L [facility] HEMOGLOBIN 14.1 11.7 - 15.5 g/dL [facility] HEMATOCRIT 43.2 35.0 - 45.0 % [facility] MCV 87.1 80.0 - 100.0 fL [facility] MCH 28.4 27.0 - 33.0 pg [facility] MCHC 32.6 32.0 - 36.0 g/dL [facility] Comment: For adults, a slight decrease in the calculated MCHC value (in the range of 30 to 32 g/dL) is most likely not clinically significant; however, it should be interpreted with caution in correlation with other red cell parameters and the patient's clinical condition. RDW 13.3 11.0 - 15.0 % [facility] PLATELET COUNT 195 140 - 400 Thousand/ uL [employer] [facility] MPV 11.0 7.5 - 12.5 fL [employer] [facility] ABSOLUTE NEUTROPHILS 2,543 1,500 - 7,800 cells/uL [facility] ABSOLUTE LYMPHOCYTES 1,526 850 - 3,900 cells/uL [facility] ABSOLUTE MONOCYTES 342 200 - 950 cells/uL [employer] [facility] ABSOLUTE EOSINOPHILS 50 15 - 500 cells/uL [facility] ABSOLUTE BASOPHILS 41 0 - 200 cells/uL [facility] NEUTROPHILS PCT 56.5 % QUES T fflick [facility] LYMPHOCYTES 33.9 % [facility] [employer] [facility] MONOCYTES 7.6 % [facility] EOSINOPHILS 1.1 % [facility] [employer] [facility] BASOPHILS 0.9 % [employer] [facility] Blood Blood / Unknown 04/22/2024 9 :52 AM EST 04/22/2024 9:52 AM EST Narrative [employer] - 04/23/2024 7:27 AM EST FASTING:YES Esperanza Santos [facility] LAB - BLOOD DRAW Edited Resul t - Final [employer] [address] [address], [facility] [address] [address] * (ABNORMAL) COMPREHENSIVE METABOLIC PANEL (04/22/2024 9:52 AM EST) GLUCOSE 88 65 - 99 mg/dL [facility] Comment: ?Fasting reference interval UREA NITROGEN (BUN) 14 7 - 25 mg/dL [facility] CREATININE (blood) 0.56 0.50 - 1.05 mg/dL [facility] EGFR 102 > OR = 60 mL/min/1. 73m2 [facility] BUN/CREATININE RATIO SEE NOTE: [employer] [facility] Comment: ?? Not Reported: BUN and Creatinine are within ?? reference range. ? SODIUM 141 135 - 146 mmol/L [facility] POTASSIUM 4.6 3.5 - 5.3 mmol/L [facility] CHLORIDE 103 98 - 110 mmol/L [facility] CARBON DIOXIDE 33(H) 20 - 32 mmol/L [facility] CALCIUM 9.4 8.6 - 10.4 mg/dL [facility] PROTEIN, TOTAL 7.5 6.1 - 8.1 g/dL [facility] ALBUMIN 4.5 3.6 - 5.1 g/dL [facility] GLOBULIN 3.0 1.9 - 3.7 g/dL (calc) [facility] ALBUMIN/GLOBULI N RATIO 1.5 1.0 - 2.5 (calc) [facility] BILIRUBIN, TOTAL 0.6 0.2 - 1.2 mg/dL [facility] ALKALINE PHOSPHATASE 83 37 - 153 U/L [facility] AST 20 10 - 35 U/L [facility] ALT 18 6 - 29 U/L [facility] Blood Blood / Unknown 04/22/2024 9 :52 AM EST 04/22/2024 9:52 AM EST Narrative [facility] - 04/23/2024 7:27 AM EST FASTING:YES Esperanza Santos [employer] [employer] [facility] [facility] LAB - BLOOD DRAW Edited Resul t - Final Performing Organization Address City/[facility]/ZIP Co de Phone Number [facility] [address] [address], [place] [facility] [address] [address] * COLOGUARD (05/06/2023 3:00 AM EST) Stool Stool specimen / Unknown 05/06/2023 3:00 AM EST us Donna [facility] LAB - NO BLOOD DRAW Final Result Performing Organization Address City/[facility]/ZIP Co de Phone Number [employer] [address] [place] [address], [place] [id number] [place] [address], * REFERRAL FOR MAMMOGRAM (04/10/2023 3:00 AM EST) 04/10/2023 3:00 AM EST us Donna [facility] IMG RFL MAMMO Edited Result - Final * PAP, LIQUID BASED (01/18/2020 4:26 PM EST) PAP negative NORMAL - ABNORMAL [facility] Cervix Cervix uteri structure / Unknown 01/18/2020 4:26 PM EST Impressions [facility] - 01/27/2020 12:39 PM EST Thinprep Pap,Imaged:Negative for squamous intraepithelial lesion and malignancy. Reactive cellular changes HPV:Negative Umm Fuentes [employer] [employer] LAB - NO BLOOD DRAW Final Resu lt Performing Organization Address [facility] Co de Phone Number [facility] [address] [place] [address], * PAP SMEAR W/HPV (01/18/2020 1:00 AM EST) PAP SMEAR INTERPRETATION NORMAL NORMAL [facility] HPV (HUMAN PAPILLOMA) NEGATIVE NEGATIVE [facility] HPV TYPE 16 NEGATIVE NEGATIVE [facility] HPV TYPE 18 NEGATIVE NEGATIVE [facility] Swab 01/18/2020 1:00 AM EST Impressions [facility] - 01/18/2020 4:00 AM EST ThinPrep pap,imaged:Negative for squamous intraepithelial lesion and malignancy. Reactive cellular changes. HPV:Negative. Provider [facility] - NO BLOOD DRAW Final Result Performing Organization Address [facility] de Phone Number [facility] [address] [place] [address], * (ABNORMAL) HEPATITIS A,B,C PANEL (05/11/2018 11:58 AM EDT) HEPATITIS B SURFACE ANTIBODY NEGATIVE NEGATIVE [facility] HEPATITIS B SURFACE ANTIGEN NEGATIVE NEGATIVE [facility] Comment: Over the counter supplements containing high doses of biotin may interfere with this assay. ??If interference is suspected, patients shoud be retested after refraining from biotin supplements for 72 hours. HEPATITIS C VIRUS DIAGNOSTIC NEGATIVE NEGATIVE [facility] HEPATITIS B CORE ANTIBODY NEGATIVE NEGATIVE [facility] HEPATITIS A ANTIBODY TOTAL POSITIVE(A) NEGATIVE [facility] Comment: Over the counter supplements containing high doses of biotin may interfere with this assay. ??If interference is suspected, patients shoud be retested after refraining from biotin supplements for 72 hours. Blood specimen (specimen) Blood / Unknown 05/11/2018 11:58 AM EDT 05/11/2018 12:03 PM EDT [facility] - 05/11/2018 7:42 PM EDT Miriam Cope, a member of [address] [address] Mobile Paramedical Examiner - Jazmín Johnston MD [place] ID [id number] ORD# [id number] Merry Prescott NP LAB - BLOOD DRAW Edited Res ult - Final Performing Organization Address City/[facility]/ZIP Co de Phone Number [address] [address], [place] [phone] * HIV-1 & HIV-2 ANTIBODIES (05/11/2018 11:58 AM EDT) [facility] HIV 1 AND 2 ANTIBODY SCREEN NEGATIVE NEGATIVE [facility] Comment: This assay is a 4th generation assay allowing for earlier detection of HIV infection by detecting the presence of the HIV-1 p24 antigen as well as the traditional antibodies to HIV type 1 (including group O) and type 2. ??Use of a 4th generation assay is the current CDC recommendation for HIV screening. Blood specimen (specimen) Blood / Unknown 05/11/2018 11:58 AM EDT 05/11/2018 12:03 PM EDT Nannette [facility] - 05/11/2018 8:11 PM EDT Miriam Cope, a member of [address] [address] Mobile Paramedical Examiner - Jazmín Johnston MD [place] ID [id number] ORD# [id number] Merry Prescott NP LAB - BLOOD DRAW Final Resu lt Performing Organization Address [facility]/ZIP Co de Phone Number [address] [address], [place] [phone] from Last 3 Months or Most Recently Relevant to Health Maintenance Insurance [employer] NET [place] [address]) Member Subscriber Plan / Payer (Ef fective 2024-Present) Name:Penny Botello Liane Relation to Subscriber:Self Name:Penny Botello Payer ID:[id number] Group ID:Not on file Type:Indemnity Address: [address] [place] [id number] Care Teams Blast Furnace Tender Relationship Specialty Start Date End Date Umm Fuentes FNP [address] [place] [address] PCP - General Internal Medicine 07/11/19
--- OUTSIDE RECORDS SUMMARY | 2024-06-06 15:15 | XMS_ITS | Clinical Summary ---
Author Organization [facility] Address [address] [place] [address] Phone Care Team Providers Care Apartment Leasing Manager Name Role Phone Jairo Melgoza MARIANA Primary Care Provider [phone] Immunizations Name Administration Dates Next Due Moderna SARS-CoV-2 COVID-19, mRNA, LNP-S, preservative free 04/19/2020,03/23/2020 Surgical History Surgery Date Site/Laterality Comments TONSILLECTOMY PROCEDURE: HISTORICAL TONSILLECTOMY Medical History Medical History Date Comments Venous insufficiency DX:Venous i nsufficiency Varicose veins of both lower extremities with pain DX:Varicose veins of both lo wer extremities with pain Spondylolisthesis at L4-L5 level DX:Spondylolisthesis at L4-L5 level Hypothyroidism DX:Hypothyroidis m Plantar fasciitis of left foot D X:Plantar fasciitis of left foot Obesity due to excess calories D X:Obesity due to excess calories Calcaneal spur of left foot DX:C alcaneal spur of left foot Vitamin D deficiency DX:Vitamin D deficiency Type 2 diabetes mellitus DX:Type 2 diabetes mellitus (HCC) Family History Medical History Relation Name Comments Other: Pulmonary Edema Father Diabetes Mother Hypertension Mother Stroke Mother Other cancer Sister Relation Name Status Comments Father Mother Sister Social History Tobacco Use Types Packs/Day Years Used Date Smoking Tobacco: Never Smokeless Tobacco: Never Alcohol Use Standard Drinks/Week Comments Yes 0 (1 standard drink = 0.6 oz pur e alcohol) Comments Unknown Sex and Gender Information Value Date Recorded Sex Assigned at Female 05/31/2024 9:49 AM EDT Legal Sex Female 4:51 AM EST Gender Identity Female 05/31/2024 9:49 AM EDT Sexual Orientation Straight 05/31/2024 9: 49 AM EDT Obstetrics History Plan of Treatment Upcoming Encounters Date Type Department Care Team ([place] st Contact Info) Description 06/07/2024 4:00 PM EDT [facility]oint[facility] [address] [phone] Health Maintenance Due Date Last Done Comments Diabetes: Annual GFR (Glomerular Filtration Rate) 1960 Diabetes: Annual Foot Exam 1970 Diabetes: Annual Retina Eye Exam 1970 DTaP,Tdap,and Td Vaccines (1 - Tdap) 1979 Cervical Cancer Screening: Pap Smear 1981 Pneumococcal Vaccine: 50+ Years (1 of 1 - PCV) 2010 Zoster Vaccines (1 of 2) 2010 Cholesterol Screening (Lipid Panel) 02/02/2022 Colorectal Cancer Screening: Colonoscopy 02/02/2022 Depression Screening 02/02/2022 HIV Screening 02/02/2022 Hepatitis C Screening 02/02/2022 Social Influencers of Health Screening 02/02/2022 Diabetes: Annual Urine Albumin-Creatinine Ratio (uACR) 02/15/2022 Diabetes: Blood Sugar Control Test (HGBA1C) 02/15/2022 COVID-19 Vaccine ( season) 2023 04/19/2020, 03/23/2020 Influenza Vaccine (Season Ended) 2024 Breast Cancer Screening 04/10/2025 04/10/19 24, 04/07/2022, 04/03/2021, Additional history exists RSV Immunization Adult Patients (1 - 1-dose 75+ series) 2035 HIB Vaccines Aged Out No longer eligi ble based on patient's age to complete this topic HPV Vaccines Aged Out No longer eligi ble based on patient's age to complete this topic Hepatitis A Vaccines Aged Out No long er eligible based on patient's age to complete this topic Hepatitis B Vaccines Aged Out No long er eligible based on patient's age to complete this topic IPV Vaccines Aged Out No longer eligi ble based on patient's age to complete this topic MMR Vaccines Aged Out No longer eligi ble based on patient's age to complete this topic Meningococcal ACWY Vaccine Aged Out N o longer eligible based on patient's age to complete this topic Meningococcal B Vaccine Aged Out No l onger eligible based on patient's age to complete this topic Pneumococcal Vaccine: Pediatrics (0 to 5 Years) and At-Risk Patients (6 to 64 Years) Aged Out No longer eligible based on patient's age to complete this topic RSV Immunization Patients Under 20 months Aged Out No longer eligible based on patient's age to complete this topic Varicella Vaccines Aged Out No longer eligible based on patient's age to complete this topic Procedures Procedure Name Priority Date/Time Associated Diagnosis Comments [facility] SCREENING DIGITAL Routine 04/10/2023 12:01 PM EST Encounter for screening mammogram for malignant neoplasm of breast from Last 3 Months or Most Recently Relevant to Health Maintenance Results * [facility] SCREENING DIGITAL (04/10/2023 12:01 PM EST) Anatomical Region Laterality Modality Mammography 04/10/2023 11:2 1 AM EST Narrative 04/10/2023 12:01 PM EST [facility] Diagnostic Imaging Department [address] [place] [address] Patient: ??PENNY BOTELLO ?/Age/Sex: 1960 - 63 - F Unit#: ??[id number] ? Location/Status: ??SPDIMAM/REG CLI ? Mnemonic/Ordering Site: ??DIGSC/SPMAM Ordering Physician: ??JAIRO MELGOZA NP [facility] Screening Digital - 04/10/23 - 1139 Report Status:Signed HISTORY: The patient is a 63-year-old female presenting for routine screening mammography. FINDINGS: ??Full-field digital mammography of the breasts bilaterally consisting of tomosynthesis in MLO and CC projection is performed in the [employer]iae 2000-D unit. ??Computer aided detection utilizing the AnghamiD system was utilized. The breasts are composed of a combination of fatty and fibroglandular elements (scattered areas of fibroglandular density, category B density as calculated wi Handangopara software), without significant change as compared to prior studies most recently 04/07/2022 most remotely 06/21/2018. ??Bilateral benign punctate, rim, and secretory calcifications are again seen. ??There is no suspicious cluster of microcalcifications, mass, or area of architectural distortion. There is no skin thickening or nipple retraction. IMPRESSION: No mammographic evidence of malignancy. A negative mammogram in the presence of a clinically suspicious palpable abnormality does not preclude the possibility of malignancy or alter the indications for biopsy. BIRADS Code Class 2: ??Benign Finding PQRI CPT II 3342F Code 19819, 41720 PQRI 225 CPT II 7025F Dictating Physician: ??DEBBIE HILARIO MD Electronically Signed by: ??DEBBIE HILARIO MD Dic Date/Time: ??04/10/23 1155 Sign date/Time: ??04/10/23 1201 Procedure Note Debbie Hilario MD - 10/19/2023 [facility] Diagnostic Imaging Department [address] [place] [address] Patient: PENNY BOTELLO D.O.B./Age/Sex: 1960 - 63 - F Unit#: [id number] Location/Status: SPDIMAM/REG CLI Mnemonic/Ordering Site: [facility] Ordering Physician: JAIRO MELGOZA NP [facility] Screening Digital - 04/10/23 - 1139 Report Status:Signed HISTORY: The patient is a 63-year-old female presenting for routinescreening mammography. FINDINGS: Full-field digital mammography of the breasts bilaterallyconsisting of tomosynthesis in MLO and CC projection is performed in the [employer] 2000-D unit. Computer aided detection utilizing the iCAD system wasutilized. The breasts are composed of a combination of fatty and fibroglandularelements (scattered areas of fibroglandular density, category B density ascalculated wi th moblia software), without significant change as compared [facility] studies most recently 04/07/2022 most remotely 06/21/2018. Bilateralbenign punctate, rim, and secretory calcifications are again seen. There is no suspicious cluster of microcalcifications, mass, or area ofarchitectural distortion. There is no skin thickening or nipple retraction. IMPRESSION: No mammographic evidence of malignancy. A negative mammogram in the presence of a clinically suspicious palpable abnormality does not preclude the possibility of malignancy or alter the indications for biopsy. BIRADS Code Class 2: Benign Finding PQRI CPT II 3342F Code 94373, 05691 PQRI 225 CPT II 7025F Dictating Physician: DEBBIE HILARIO MD Electronically Signed by: DEBBIE HILARIO MD Dic Date/Time: 04/10/23 1155 Sign date/Time: 04/10/23 1201 Jairo Melgoza NP IMG BI PROCEDURES Final Result from Last 3 Months or Most Recently Relevant to Health Maintenance Insurance [facility] Care Teams Apartment Leasing Manager Relationship Specialty Start Date End Date Jairo Melgoza NP [facility] [place] [address] PCP - General Nurse Practitioner 05/09/24
== END 2024-06-06 13:28 | disposition home or self-care (01) ==
LOC: HO.HBS 12:55
PROVIDERS: PCP Nurse Practitioner Family; Visit Provider Physician Assistant Surgical
DX: E66.811 Obesity, class 1 (principal); Z68.30 Body mass index [BMI] 30.0-30.9, adult; Z90.3 Acquired absence of stomach [part of]; Z98.84 Bariatric surgery status
CPT/HCPCS: 99214

== ENCOUNTER → 2024-06-06 12:54 | Outpatient (BNVA) | payer OTHER, SELFPAY | PROVIDERS: PCP Nurse Practitioner Family; Visit Provider Physician Assistant Surgical ==

== ENCOUNTER 2024-06-08 08:29 | Outpatient (REF) | payer OTHER, SELFPAY ==
--- OUTSIDE RECORDS SUMMARY | 2024-06-08 08:45 | XMS_ITS | Clinical Summary ---
Author Organization [facility] Address [address] [place] [address] Care Team Providers Care Telegraph Editor Name Role Phone Umm Fuentes [facility] Primary Care Provider [phone] Source Comments PLEASE NOTE, if this patient [...] fasciitis of left foot 05/14/2018 Overview (05/14/2018): [facility] [place] [place] [facility] Surgery was on 09/25/2017 Venous insufficiency 05/14/2018 Obesity due to excess calories 05/14/2018 Calcaneal spur of left foot 05/14/2018 H/O mammogram 05/14/2018 Overview (05/14/2018): Normal mammogram 08/2017. Due 08/2018. 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 Resolved Problems Problem Noted Date Diagnosed Date Resolved Date Essential hypertension 08/16/201903/25 Type 2 diabetes mellitus ([facility]) 05/12/2018 03/25/2021 Encounters Date Type Department Care Team Description 05/11/2024 Interim Notes [facility] [address] [place] [phone] Esperanza Santos FNP Hypothyroidism, unspecified type 05/02/2024 3:40 PM EST Office Visit [facility] [address] [place] [phone] Jadiel Angelo RDH Encounter for dental examination (Primary Dx) 04/22/2024 8:40 AM EST Office Visit [address] [phone] Esperanza Santos FNP Annual physical [...] Description 06/22/2024 3:40 PM EDT Office Visit [address] [phone] Awilda Coleman, [address] [address] 06/29/2024 3:40 PM EDT Office Visit [address] [phone] [place] [address] [place] [address] 11/08/2024 3:40 PM EDT Office Visit [address] [phone] Jadiel Angelo [facility] [address] [place] [address] Health Maintenance Due Date Last Done Comments [...] Completed 05/11/2018 Imm-Zoster, Recombinant Completed 02/15/2020, 01/16 [id number] Completed 11/08/2023, 03/2022, 06/14/2021, Additional history exists Imm-Influenza Completed 11/08/2023, 03/2022, 11/15/2020, Additional history exists Alcohol and Drug Screen Completed 04/22/19 25, 10/02/2023, 10/08/2021, Additional history exists Depression Annual Screen Completed 04/22/2024 Cervical Ablation/Cold-Knife Conization Discontinued Cervical Cryotherapy Discontinued Colposcopy Discontinued Endometrial Biopsy Discontinued Excision/Leep Discontinued HPV Genotyping Discontinued Vaginal Pap Discontinued Vulvoscopy Discontinued Procedures Procedure Name Priority Date/Time Associated Diagnosis Comments REFERRAL SCANNED DOCUMENT 06/06/2024 3:00 AM EDT DENTAL CASE MANAGEMENT - MOTIVATIONAL INTV Routine [...] Recently Relevant to Health Maintenance Results * REFERRAL SCANNED DOCUMENT (06/06/2024 3:00 AM EDT) 06/06/2024 3:00 AM EDT Umm Fuentes SALES SUPPORT ENGINEER SCAN REFERRAL Final Result * (ABNORMAL) HGA1C W/EAG (04/22/2024 9:52 AM EST) HEMOGLOBIN A1C 5.7(H) <5.7 % of total Hgb [facility] Comment: For someone without known diabetes, a [...] diabetes for children. EAG (MG/DL) 117 mg/dL [facility] EAG (MMOL/L) 6.5 mmol/L [facility] Blood Blood / Unknown 04/22/2024 9 :52 AM EST 04/22/2024 9:52 AM EST Narrative [facility] - 04/23/2024 7:27 AM EST FASTING:YES Esperanza Santos [facility] LAB - BLOOD DRAW Final Result Performing Organization Address [facility] Co de Phone Number [facility] [address] [address], [facility] [address] [address] * TSH W/RFLX FREE T4 (04/22/2024 9:52 AM EST) TSH W/REFLEX TO FT4 2.52 0.40 - 4.50 mIU/L [facility] Blood Blood / Unknown 04/22/2024 9 :52 AM EST 04/22/2024 9:52 AM EST Narrative [facility] - 04/23/2024 7:27 AM EST FASTING:YES Esperanza Danielsonkelleemaximo [facility] LAB - BLOOD DRAW Edited Resul t - Final Performing Organization Address [facility] de Phone Number [facility] [address] [address], [facility] [address] [address] * LIPIDS W RFLX TO DIRECT LDL (04/22/2024 9:52 AM EST) CHOLESTEROL, TOTAL 181 <200 mg/dL [facility] HDL CHOLESTEROL 81 > OR = 50 mg/dL [facility] TRIGLYCERIDES 46 <150 mg/dL [facility] LDL-CHOLESTEROL 86 99 mg/dL (calc) [facility] Comment: Reference range: <100 Desirable range <100 mg/dL for primary prevention; ?? <70 mg/dL for patients with CHD or diabetic patients with > or = 2 CHD risk factors. LDL-C is now calculated using the London-Vieira calculation, which is a validated novel method providing better accuracy than the Friedewald equation in the estimation of LDL-C. London SS et al. LEÓN. 2013;310(07): 6258-7604 (http://education.[employer]/faq/PVB217) CHOL/HDLC RATIO 2.2 <5.0 (calc) [facility] NON-HDL CHOLESTEROL 100 <130 mg/dL (calc) [facility] Comment: For patients with diabetes plus 1 major ASCVD risk factor, treating to a non-HDL-C goal of <100 mg/dL (LDL-C of <70 mg/dL) is considered a therapeutic option. Blood Blood / Unknown 04/22/2024 9 :52 AM EST 04/22/2024 9:52 AM EST Narrative [facility] - 04/23/2024 7:27 AM EST FASTING:YES Esperanza Santos [facility] LAB - BLOOD DRAW Final Result [facility] [address] [address], [employer] [address] [address] * BLOOD COUNT COMPLETE AUTO&AUTO DIFRNTL WBC (04/22/2024 9:52 AM EST) WHITE BLOOD CELL COUNT 4.5 3.8 - 10.8 Thousand/ uL [facility] RED BLOOD CELL COUNT 4.96 3.80 - 5.10 Million/u L [facility] HEMOGLOBIN 14.1 11.7 - 15.5 g/dL [facility] HEMATOCRIT 43.2 35.0 - 45.0 % [facility] MCV 87.1 80.0 - 100.0 fL [facility] MCH 28.4 27.0 - 33.0 pg [facility] MCHC 32.6 32.0 - 36.0 g/dL [facility] Comment: For adults, a slight decrease in the calculated MCHC value (in the range of 30 to 32 g/dL) is most likely not clinically significant; however, it should be interpreted with caution in correlation with other red cell parameters and the patient's clinical condition. RDW 13.3 11.0 - 15.0 % [employer] [facility] PLATELET COUNT 195 140 - 400 Thousand/ uL [employer] [facility] MPV 11.0 7.5 - 12.5 fL [facility] ABSOLUTE NEUTROPHILS 2,543 1,500 - 7,800 cells/uL [facility] ABSOLUTE LYMPHOCYTES 1,526 850 - 3,900 cells/uL [facility] [place] [employer] ABSOLUTE MONOCYTES 342 200 - 950 cells/uL [facility] ABSOLUTE EOSINOPHILS 50 15 - 500 cells/uL [facility] ABSOLUTE BASOPHILS 41 0 - 200 cells/uL [facility] NEUTROPHILS PCT 56.5 % [employer] [facility] LYMPHOCYTES 33.9 % [facility] [facility] [employer] [facility] MONOCYTES 7.6 % [facility] [employer] [facility] EOSINOPHILS 1.1 % [facility] [employer] [facility] BASOPHILS 0.9 % [employer] [facility] Blood Blood / Unknown 04/22/2024 9:52 AM EST 04/22/2024 9:52 AM EST Narrative [facility] - 04/23/2024 7:27 AM EST FASTING:YES Esperanza Santos [facility] LAB - BLOOD DRAW Edited Resul t - Final [facility] [address] [address], [employer] [address] [address] * (ABNORMAL) COMPREHENSIVE METABOLIC PANEL (04/22/2024 9:52 AM EST) GLUCOSE 88 65 - 99 mg/dL [employer] [facility] Comment: ?Fasting reference interval UREA NITROGEN (BUN) 14 7 - 25 mg/dL [employer] [facility] CREATININE (blood) 0.56 0.50 - 1.05 mg/dL [employer] [facility] EGFR 102 > OR = 60 mL/min/1. 73m2 [facility] BUN/CREATININE RATIO SEE NOTE: [facility] Comment: ?? Not Reported: BUN and Creatinine are within ?? reference range. ? SODIUM 141 135 - 146 mmol/L [employer] [facility] POTASSIUM 4.6 3.5 - 5.3 mmol/L [facility] CHLORIDE 103 98 - 110 mmol/L [facility] CARBON DIOXIDE 33(H) 20 - 32 mmol/L [facility] CALCIUM 9.4 8.6 - 10.4 mg/dL [facility] PROTEIN, TOTAL 7.5 6.1 - 8.1 g/dL [facility] ALBUMIN 4.5 3.6 - 5.1 g/dL [facility] GLOBULIN 3.0 1.9 - 3.7 g/dL (calc) [facility] ALBUMIN/GLOBULI N RATIO 1.5 1.0 - 2.5 (calc) [facility] BILIRUBIN, TOTAL 0.6 0.2 - 1.2 mg/dL [facility] ALKALINE PHOSPHATASE 83 37 - 153 U/L [facility] AST 20 10 - 35 U/L [facility] ALT 18 6 - 29 U/L [facility] Blood Blood / Unknown 04/22/2024 9 :52 AM EST 04/22/2024 9:52 AM EST Narrative Any[facility] - 04/23/2024 7:27 AM EST FASTING:YES Esperanza Santos [facility] LAB - BLOOD DRAW Edited Resul t - Final [facility] [address] [address], [facility] [address] [address] * COLOGUARD (05/06/2023 3:00 AM EST) Stool Stool specimen / Unknown 05/06/2023 3:00 AM EST us Donna PITTS LAB - NO BLOOD DRAW Final Result [employer] [address] [facility], [address] [facility] [id number] [place] [address], * REFERRAL FOR MAMMOGRAM (04/10/2023 3:00 AM EST) 04/10/2023 3:00 AM EST us Donna [facility] IMG RFL MAMMO Edited Result - Final * PAP, LIQUID BASED (01/18/2020 4:26 PM EST) PAP negative NORMAL - ABNORMAL [facility] Cervix Cervix uteri structure / Unknown 01/18/2020 4:26 PM EST Impressions [facility] - 01/27/2020 12:39 PM EST Thinprep Pap,Imaged:Negative for squamous intraepithelial lesion and malignancy. Reactive cellular changes HPV:Negative Umm Fuentes SALES SUPPORT ENGINEER LAB - NO BLOOD DRAW Final Resu lt Performing Organization Address City/[facility]/ZIP Co de Phone Number [facility] [address] [place] [address], * PAP SMEAR W/HPV (01/18/2020 1:00 AM EST) PAP SMEAR INTERPRETATION NORMAL NORMAL [facility] HPV (HUMAN PAPILLOMA) NEGATIVE NEGATIVE [facility] HPV TYPE 16 NEGATIVE NEGATIVE [facility] HPV TYPE 18 NEGATIVE NEGATIVE [facility] Swab 01/18/2020 1:00 AM EST Impressions [facility] - 01/18/2020 4:00 AM EST ThinPrep pap,imaged:Negative for squamous intraepithelial lesion and malignancy. Reactive cellular changes. HPV:Negative. Provider [facility] LAB - NO BLOOD DRAW Final Result Performing Organization Address City/[facility]/ZIP Co de Phone Number [facility] [address] [place] [address], * (ABNORMAL) HEPATITIS A,B,C PANEL (05/11/2018 11:58 AM EDT) HEPATITIS B SURFACE ANTIBODY NEGATIVE NEGATIVE [facility] HEPATITIS B SURFACE ANTIGEN NEGATIVE NEGATIVE [facility] Comment: Over the counter supplements containing high doses of biotin may interfere with this assay. ??If interference is suspected, patients shoud be retested after refraining from biotin supplements for 72 hours. HEPATITIS C VIRUS DIAGNOSTIC NEGATIVE NEGATIVE [facility] HEPATITIS B CORE ANTIBODY NEGATIVE NEGATIVE [facility] HEPATITIS A ANTIBODY TOTAL POSITIVE(A) NEGATIVE [facility] Comment: Over the counter supplements containing high doses of biotin may interfere with this assay. ??If interference is suspected, patients shoud be retested after refraining from biotin supplements for 72 hours. Blood specimen (specimen) Blood / Unknown 05/11/2018 11:58 AM EDT 05/11/2018 12:03 PM EDT [facility] - 05/11/2018 7:42 PM EDT [email or web address], [place] [address] [employer] Stewardess - Jazmín Johnston MD PT ID [id number] ORD# [id number] us Merry Prescott NP LAB - BLOOD DRAW Edited Res ult - Final Performing Organization Address City/[facility] [place] [address], * HIV-1 & HIV-2 ANTIBODIES (05/11/2018 11:58 AM EDT) [facility] HIV 1 AND 2 ANTIBODY SCREEN NEGATIVE NEGATIVE [facility] Comment: This assay is a [...] AM EDT 05/11/2018 12:[address] [facility] - 05/11/2018 8:11 PM EDT [email or web address], [place] [address] [employer] - Jazmín Johnston MD PT ID [id number] ORD# [id number] Merry Prescott NP LAB - BLOOD DRAW Final Resu lt Performing Organization Address [facility]/ZIP Co de Phone Number [address] [place] [address], from Last 3 Months or Most Recently Relevant to Health Maintenance Insurance [employer] NET DENTAL ) Member Subscriber Plan / Payer (Ef fective 2024-Present) Name:Penny Botello Relation to Subscriber:Self Name:Ponce Botelloalexandra Rob Payer ID:[id number] Group ID:Not on file Type:Indemnity Address: [address] [place] [id number] Care Teams Telegraph Editor Relationship Specialty Start Date End Date Umm Fuentes FNP [address] [place] [id number] PCP - General Internal Medicine 07/11/19
--- OUTSIDE RECORDS SUMMARY | 2024-06-08 08:45 | XMS_ITS | Encounter Summary ---
Author Organization [facility] Address [address] [place] [address] Care Team Providers Care Compliance Professional Name Role Phone Umm Fuentes NP Primary Care Provider [phone] Reason for Visit * Imaging (Routine) - Pending Review Specialty Diagnoses / Procedures Referred By Contac t Referred To Contact Radiology Diagnoses Encounter for screening mammogram for malignant neoplasm of breast Procedures MG Mammo Digital Screening w Skip bilat MG Mammo Digital Screening bilat Esperanza Santos, [employer] [address] [place] [address] Phone: tel: fax: [address] [address] Phone: tel: Referral ID Status Reason Start Date Expiration Date V isits Requested Visits Authorized [id number] Pending Review 05/05/2024 05/05/2025 1 1 Encounter Details Date Type Department Care Team (Latest Contact Info) Description 06/07/2024 2:49 PM EDT - 06/07/2024 11:59 PM EDT [facility] at [address] [address] Encounter for screening mammogram for malignant neoplasm of breast Discharge Disposition: Home or Self Care Social History Tobacco Use Types Packs/Day Years Used Date Smoking Tobacco: Never Smokeless Tobacco: Never Alcohol Use Standard Drinks/Week Comments Yes 0 (1 standard drink = 0.6 oz pur e alcohol) Comments No Sex and Gender Information Value Date Recorded Sex Assigned at Female 05/31/2024 9:49 AM EDT Legal Sex Female 4:51 AM EST Gender Identity Female 05/31/2024 9:49 AM EDT Sexual Orientation Straight 05/31/2024 9: 49 AM EDT documented as of this encounter Last Filed Vital Signs Vital Sign Reading Time Taken Comments Blood Pressure - - Pulse - - Temperature - - Respiratory Rate - - Oxygen Saturation - - Inhaled Oxygen Concentration - - Weight 82.6 kg (182 lb) 06/07/2024 3:13 PM EDT Height 170.2 cm (5' 7 ) 06/07/2024 3:13 PM EDT Body Mass Index 28.51 06/07/2024 3:13 PM EDT documented in this encounter Discharge Disposition Disposition Code Departure Means Destination Home or Self Care documented in this encounter Plan of Treatment Pending Results Name Type Priority Associated Diagnoses Date /Time MG Mammo Digital Screening w Skip bilat Imaging Routine Encounter for screening mammogram for malignant neoplasm of breast 06/07/2024 3:15 PM EDT Scheduled Orders Name Type Priority Associated Diagnoses Orde r Schedule MG Mammo Digital Screening w Skip bilat Imaging Routine Encounter for screening mammogram for malignant neoplasm of breast Once for 1 Occurrences starting 06/07/2024 until 06/07/2024 documented as of this encounter Visit Diagnoses Diagnosis Encounter for screening mammogram for malignant neoplasm of breast documented in this encounter Care Teams Compliance Professional Relationship Specialty Start Date End Date Umm Fuentes NP [address] [place] [address] PCP - General Nurse Practitioner 05/09/24 documented as of this encounter
--- OUTSIDE RECORDS SUMMARY | 2024-06-08 08:45 | XMS_ITS | Clinical Summary ---
Author Organization [facility] Address [address] [place] [address] Phone Care Team Providers Care Drainage Engineer Name Role Phone Jairo Melgoza MARIANA Primary Care Provider [phone] Encounters Date Type Department Care Team Description 06/07/2024 2:49 PM EDT - 06/07/2024 11:59 PM EDT [facility] at [address] [address] Encounter for screening mammogram for malignant neoplasm of breast Discharge Disposition: Home or Self Care from Last 3 Months Immunizations Name Administration Dates Next Due Moderna [...] 9:49 AM EDT Sexual Orientation Straight 05/31/2024 9 :49 AM EDT Obstetrics History Para Term AB IAB SAB Ectopic Multiple Livin g Live Births 3 Last Filed Vital Signs Vital Sign Reading Time Taken Comments Blood Pressure - - Pulse - - Temperature - - Respiratory Rate - - Oxygen Saturation - - Inhaled Oxygen Concentration - - Weight 82.6 kg (182 lb) 06/07/2024 3:13 PM EDT Height 170.2 cm (5' 7 ) 06/07/2024 3:13 PM EDT Body Mass Index 28.51 06/07/2024 3:13 PM EDT Plan of Treatment Health Maintenance Due Date Last Done Comments Diabetes: Annual Foot Exam 1970 Diabetes: Annual Retina Eye Exam 1970 Pneumococcal Vaccine: 50+ Years (1 of 1 - PCV) 2010 Hepatitis C Screening 02/02/2022 Social Influencers of Health Screening 02/02/2022 Diabetes: Annual Urine Albumin-Creatinine Ratio (uACR) 03/15/2022 03/15/2021, 08/10/2020, 07/19/2019, Additional history exists Cervical Cancer Screening: Pap Smear 01/17/2023 01/18/2020 Diabetes: Blood Sugar Control Test (HGBA1C) 10/20/2024 04/22/2024 Breast Cancer Screening 04/10/2025 04/10/19 24, 04/07/2022, 04/03/2021, Additional history exists Depression Screening 04/22/2025 04/22/2024 Diabetes: Annual GFR (Glomerular Filtration Rate) 04/22/2025 04/22/2024 Hypertension/CHF/CAD Annual BMP Blood Test 04/22/2025 04/22/2024 Colorectal Cancer Screening: FIT-DNA (Cologuard) 05/05/2026 05/06/2023 DTaP,Tdap,and Td Vaccines (2 - Td or Tdap) 05/11/2028 05/11/2018 Cholesterol Screening (Lipid Panel) 04/22/2029 04/22/2024, 03/07/2023, 03/15/2021, Additional history exists RSV Immunization Adult Patients (1 - 1-dose 75+ series) 2035 HIV Screening Completed 05/11/2018 Zoster Vaccines Completed 02/15/2020, 01/17/2020 Hepatitis B Vaccines Completed 01/17/2021, 02/15/2020, 01/17/2020 COVID-19 Vaccine Completed 11/08/2023, 03/2022, 06/14/2021, Additional history exists Influenza Vaccine Completed 11/08/2023, , 11/15/2020, Additional history exists HIB Vaccines Aged Out No longer eligi [...] Procedure Name Priority Date/Time Associated Diagnosis Comments [facility] SCREENING DIGITAL Routine 04/10/2023 12:01 PM EST Encounter for screening mammogram for malignant neoplasm of breast from Last 3 Months or Most Recently Relevant to Health Maintenance Results * TONG SCREENING DIGITAL (04/10/2023 12:01 PM EST) Anatomical Region Laterality Modality Mammography 04/10/2023 11:2 1 AM EST Narrative 04/10/2023 12:01 PM EST [facility] Diagnostic Imaging Department [address] [place] [address] Patient: ??PENNY BOTELLO ?/Age/Sex: 1960 - 63 - F Unit#: ??[id number] ? Location/Status: ??SPDIMAM/REG CLI ? Mnemonic/Ordering Site: ??DIGSC/SPMAM Ordering Physician: ??JAIRO MELGOZA VISUAL INSPECTOR [facility] Screening Digital - 04/10/23 - 1139 Report Status:Signed HISTORY: The patient is a 63-year-old female presenting for routine screening mammography. FINDINGS: ??Full-field digital mammography of the breasts bilaterally consisting of tomosynthesis in MLO and CC projection is performed in the [facility] 2000-D unit. ??Computer aided detection utilizing the iCAD system was utilized. The breasts are composed of a combination of fatty and fibroglandular elements (scattered areas of fibroglandular density, category B density as calculated wi Blood cell Storagepara software), without significant change as compared to [...] ??Benign Finding PQRI CPT II 3342F Code 06065, 17320 PQRI 225 CPT II 7025F Dictating Physician: ??DEBBIE HILARIO MD Electronically Signed by: ??DEBBIE HILARIO MD Dic Date/Time: ??04/10/23 1155 Sign date/Time: ??04/10/23 1201 Procedure Note Debbie Hilario MD - 10/19/2023 [facility] Diagnostic Imaging Department [address] [place] [address] Patient: PENNY BOTELLO D.O.B./Age/Sex: 1960 - 63 - F Unit#: [id number] [facility]ing Site[facility] Ordering Physician: JAIRO MELGOZA VISUAL INSPECTOR [facility] Screening Digital - 04/10/23 - 1139 Report Status:Signed HISTORY: The patient is a 63-year-old female presenting for routinescreening mammography. FINDINGS: Full-field digital mammography of the breasts bilaterallyconsisting of tomosynthesis in MLO and CC projection is performed in the [employer] 2000-D unit. Computer aided detection utilizing the iCAD system wasutilized. The breasts are composed of a combination of fatty and fibroglandularelements (scattered areas of fibroglandular density, category B density ascalculated wi th iReveal [employer]para software), without significant change as compared [facility] studies most recently 04/07/2022 most remotely 06/21/2018. [...] Benign Finding PQRI CPT II 3342F Code 02519, 62221 PQRI 225 CPT II 7025F Dictating Physician: DEBBIE HILARIO MD Electronically Signed by: DEBBIE HILARIO MD Dic Date/Time: 04/10/23 1155 Sign date/Time: 04/10/23 1201 Jairo Melgoza NP IMG BI PROCEDURES Final Result from Last 3 Months or Most Recently Relevant to Health Maintenance Insurance [id number] [place] [address] Care Teams Drainage Engineer Relationship Specialty Start Date End Date Jairo Melgoza NP [address] [place] [id number] PCP - General Nurse Practitioner 05/09/24
--- OUTSIDE RECORDS SUMMARY | 2024-06-08 08:45 | XMS_ITS | Continuity of Care Document ---
Author Organization [facility] Address [address] [place] [address] Phone Care Team Providers Care Doughnut Icer Machine Name Role Phone Celio Brown MD Unavailable [...] tive Procedures Procedure Date Pre Pay NOS Fumigator And Sterilizer Exam Advance Directives Directive Yes / No Effective Date File Name No Information Encounters Encounter Description Practice Location Reason(s) For Visit Diagnoses Date Provider Providers Copied on Encounter [facility], [address], [place], [id number] , [place] tel:+ [phone] [facility] [place] [facility] No Information 4 Kevin Pickens. [address], [place], [id number] , [place]. tel:[phone] [facility], [address], [place], [id number] , [place] tel: [phone] [facility] corneal abrasion (chief complaint) Unspecified acute conjunctivitis, left eyePunctate keratitis, bilateralSjogren syndrome with keratoconjunctivitis 3 Kevin Pickens. [address] [place], [id number] , [place]. tel: [phone] Referring Provider: Celio Brown MD, [address] [place], [address] . tel:[phone] Family History Family Member Type Diagnosis Age At Onset No Information Payers Payer name Insurance type Covered constitution party ID Lupillo kovacs(s) Joan CI [id number] Social History Type Description Quantity Date Captured [...]
[2024-06-08 08:47] LABS: MANUAL DIFF FLAG NO
[2024-06-08 09:24] LABS: Basophils Percent Auto 0.8 % (0-2); Eosinophils Absolute Auto 0.1 X10*3/uL (0.0-0.4); Eosinophils Percent Auto 1.6 % (0-4); Hemoglobin 13.6 g/dl (12.0-16.0); Imm Gran Abs Auto 0.02 X10*3/uL (0.00-0.03); Imm Gran Pct Auto 0.4 % (0.0-0.4); Lymphocytes Absolute Auto 1.9 X10*3/uL (1.2-4.9); Mean Corpuscular HGB Conc 32.4 g/dl (31.0-35.0); Mean Corpuscular Hemoglobin 27.4 pg (27.0-33.0); Mean Corpuscular Volume 84.7 fL (80.0-98.0); Mean Platelet Volume 10.7 fL (9.4-12.3); Monocytes Absolute Auto 0.4 X10*3/uL (0.1-1.2); Monocytes Percent Auto 7.3 % (2-11); Neutrophils Absolute Auto 2.7 x10*3/uL (2.0-8.3); Neutrophils Percent Auto 52.9 % (45-73); Platelet Count 260 X10*3/uL (160-400); Red Blood Count 4.96 X10*6/uL (4.20-5.50); Red Cell Distribution Width 14.6 % (11.0-16.0); White Blood Count 5.1 X10*3/uL (4.8-10.8)
[2024-06-08 09:30] LABS: Estimated Average Glucose 114 mg/dL; Hemoglobin A1C 136.9823 umol/L; Hemoglobin A1c % 5.6 % (<6.0); Total Hemoglobin (HGBA1C) 3629.9797 umol/L
[2024-06-08 10:01] LABS: Alanine Aminotransferase 28 U/L (0-31); Alkaline Phosphatase 96 U/L (39-117); Anion Gap 9 (12-20); Aspartate Amino Transferase 30 U/L (5-31); Bilirubin Total 0.5 mg/dL (0.0-1.0); Blood Urea Nitrogen 15 mg/dL (9-16); C Reactive Protein 0.17 mg/dL (< or = 0.50); Calcium 9.2 mg/dL (8.4-10.2); Carbon Dioxide 28 mmol/L (22-29); Chloride 109 mmol/L (96-108); Cholesterol 162 mg/dL (<200); Estimated Glomerular Filt Rate > 60; Glucose Random 85 mg/dL (60-115); HDL Cholesterol 64 mg/dL (>40); Iron 141 mcg/dL (30-160); LDL Cholesterol Calculated 92 mg/dL (<100); Percent Iron Saturation 50 % (15-50); Potassium 4.4 mmol/L (3.3-5.1); Sodium 142 mmol/L (135-145); Total Iron Binding Capacity 281 mcg/dL (228-428); Total Protein 7.2 g/dL (6.5-8.0); Triglycerides 34 mg/dL (<150); Unsaturated Iron Binding 140 ug/dL
[2024-06-08 10:24] LABS: Folate 15.2 ng/mL (> or = 4.0); Vitamin B12 1193 pg/mL (200-900)
[2024-06-08 10:40] LABS: Ferritin 73 ng/mL (10-250); TSH reflex Free T4 3.48 uIU/mL (0.32-4.0); Vitamin D 25-OH Total 34.2 ng/mL (>30)
[2024-06-08 11:21] LABS: Insulin 8 uU/mL (2-29)
[2024-06-11 18:09] LABS: Zinc 78 mcg/dL (60-130)
[2024-06-11 20:14] LABS: Vitamin A 32 mcg/dL (38-98)
[2024-06-18 07:34] LABS: Vitamin B1 17 nmol/L (8-30)
== END 2024-06-08 08:30 | disposition home or self-care (01) ==
LOC: HO.LAB 08:29
PROVIDERS: PCP Nurse Practitioner Family; Visit Provider Physician Assistant Surgical
DX: I10 Essential (primary) hypertension (principal); E03.9 Hypothyroidism, unspecified; E50.9 Vitamin A deficiency, unspecified; Z98.84 Bariatric surgery status; Z13.1 Encounter for screening for diabetes mellitus
CPT/HCPCS: 36415; 80053; 80061; 82306; 82607; 82728; 82746; 83036; 83525; 83540; 84425; 84443; 84590; 84630; 85025; 86140

== ENCOUNTER 2024-07-18 14:40 | Outpatient (AMB) | payer OTHER, SELFPAY ==
--- OUTSIDE RECORDS SUMMARY | 2024-07-18 14:43 | XMS_ITS | Clinical Summary ---
Author Organization [facility] Address [address] [place] [address] Care Team Providers Care Experience Specialist Name Role Phone Umm Fuentes [facility] Primary Care Provider [phone] Source Comments PLEASE NOTE, if this patient is a minor, it may be UNLAWFUL to discuss sensitive information that is contained in these records (such as FAMILY PLANNING, MENTAL HEALTH or SUBSTANCE ABUSE) with the minor patient's parent or other person without the patient's specific authorization.[facility] Allergies Active Allergy Reactions Criticality Noted Date Comments Oxycodone 03/06/2023 Medications acetaminophen (TYLENOL) 500 mg tabletIndications:P rimary osteoarthritis of both knees Take 1 Tab by mouth every 8 (eight) hours as needed for pain Max 6 tabs per day 60 Tab 2 0 Active chlorhexidine (PERIDEX) 0.12 % solutionIndications :Chronic gingivitis, plaque induced Swish and spit 15 mL 2 (two) times daily 473 mL 4 Active MYRBETRIQ 50 mg Tb24 Take 50 mg by mouth once daily Active levothyroxine 50 mcg tabletIndications:H ypothyroidism, unspecified type Take 1 Tablet by mouth once daily 90 Tablet 2 5 Active Active Problems Problem Noted Date Diagnosed Date [...] fasciitis of left foot 05/14/2018 Overview (05/14/2018): [facility] Surgery was on 09/25/2017 Venous insufficiency 05/14/2018 Obesity due to excess calories 05/14/2018 Calcaneal spur of left foot 05/14/2018 H/O mammogram 05/14/2018 Overview (05/14/2018): Normal mammogram 08/2017. Due 08/2018. 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 Resolved Problems Problem Noted Date Diagnosed Date Resolved Date Essential hypertension 08/16/201903/25 Type 2 diabetes mellitus ([facility]) 05/12/2018 03/25/2021 Encounters Date Type Department Care Team Description 06/22/2024 3:40 PM EDT Office Visit [address] [phone] Awilda Coleman DDS Partial edentulism, unspecified edentulism class (Primary Dx) 05/11/2024 Interim Notes [address] [phone] Esperanza Santos, EVA Hypothyroidism, unspecified type 05/02/2024 3:40 PM EST Office Visit [address] [phone] Encounter for dental examination (Primary Dx) 04/22/2024 8:40 AM EST Office Visit [address] [phone] Esperanza Santos FNP Annual physical [...] Care Team (Late st Contact Info) Description 11/08/2024 3:40 PM EDT Office Visit [facility] [address] [place] [address] Jadiel Angelo, [facility] [address] [place] [address] Health Maintenance Due Date Last Done Comments Anxiety Screening [address] CT Colonography 2005 Colonoscopy 2005 Flexible Sigmoidoscopy 2005 FIT/gFOBT 05/05/2024 05/06/2023 Cervical Cancer Screening 01/17/2025 HPV Screening 01/17/2025 01/18/2020 Pap + HPV 01/17/2025 01/18/2020 Pap Smear 01/17/2025 01/18/2020, 01/18/2020 Annual Wellness (Adult): Indicated (All Coverage) 04/22/2025 04/22/2024, 03/06/2023, 10/08/2021, Additional history exists Diabetes Screening 04/22/2025 04/22/2024, 0 04/22/2024, 03/07/2023, Additional history exists Hypertension Screening (#1) 04/22/2025 TSH Monitoring 04/22/2025 04/22/2024, 01/0 08/2023, 03/15/2021, Additional history exists Tobacco Screening 04/22/2025 04/22/2024 Dental BW 05/04/2025 05/02/2024, 08/30, 03/14/2023 Dental Examination 05/04/2025 05/02/2024, 0 09/15/2023, 03/14/2023 Dental Perio Charting 05/04/2025 05/02/2024, 024 Dental Prophy 05/04/2025 05/02/2024, 08/30, 03/14/2023 Breast Cancer Screening (Mammogram) 06/07/2025 06/07/2024, 06/07/2024, 04/10/2023, Additional history exists Colorectal Cancer Screening 05/19/2026 Fecal DNA 05/19/2026 05/20/2023, 05/06/2023 Imm-DTaP/Tdap/Td (2 - Td or Tdap) 05/11/2028 019 Dental FMX/Pano 10/24/2028 10/23/2023 Lipid Screening 04/22/2029 04/22/2024, 08/2023, 03/15/2021, Additional history exists HIV Screening Completed 05/11/2018 Hepatitis C Screening Completed 05/11/2018 Imm-Zoster, Recombinant Completed 02/15/2020, 01/16 [id number] Completed 11/08/2023, 0 03/2022, 06/14/2021, Additional history exists Imm-Influenza Completed 11/08/2023, 0 03/2022, 11/15/2020, Additional history exists Alcohol and Drug Screen Completed 04/22/19, 10/02/2023, 10/08/2021, Additional history exists Depression Annual Screen Completed 04/22/2024 Cervical Ablation/Cold-Knife Conization Discontinued Cervical Cryotherapy Discontinued Colposcopy Discontinued Endometrial Biopsy Discontinued Excision/Leep Discontinued HPV Genotyping Discontinued Vaginal Pap Discontinued Vulvoscopy Discontinued Procedures Procedure Name Priority Date/Time Associated Diagnosis Comments CASE PRESENTATION SUBS DTL & EXTENSIVE TX PLN Routine 06/22/2024 3:40 PM EDT Partial edentulism, unspecified edentulism class REMOVABLE PARTIAL DENTURE - INITIAL IMPRESSIONS Routine 06/22/2024 3:40 PM EDT Partial edentulism, unspecified edentulism class LAB SCANNED DOCUMENT 06/08/2024 3:00 AM EDT LAB SCANNED DOCUMENT 06/08/2024 3:00 AM EDT LAB SCANNED DOCUMENT 06/08/2024 3:00 AM EDT REFERRAL FOR MAMMOGRAM Routine 06/07/2024 3:00 AM EDT Encounter for screening mammogram for malignant neoplasm of breast REFERRAL SCANNED DOCUMENT 06/06/2024 3:00 AM EDT [...] EST Annual physical exam Colon cancer screening PAP, LIQUID BASED Routine 01/18/2020 4:2 6 PM EST Well woman exam with routine gynecological exam PAP SMEAR W/HPV, ABSTRACTED Routine 01/18/2020 1:00 AM EST ANTIBODY HIV-1&HIV-2 SINGLE RESULT Routine 05/11/2018 11:58 AM EDT Physical exam HEPATITIS A,B,C PANEL Routine 05/11/2018 11:58 AM EDT Physical exam from Last 3 Months or Most Recently Relevant to Health Maintenance Results * LAB SCANNED DOCUMENT (06/08/2024 3:00 AM EDT) Only the most recent of3 resultswithin the time period is included. 06/08/2024 3:00 AM EDT Umm Guru [facility] LAB Final Result * REFERRAL FOR MAMMOGRAM SCREENING (06/07/2024 3:00 AM EDT) 06/07/2024 3:00 AM EDT Esperanza Santos [facility] RFL MAMMO Final Result * REFERRAL SCANNED DOCUMENT (06/06/2024 3:00 AM EDT) 06/06/2024 3:00 AM EDT Umm Crockett [facility] REFERRAL Final Result * (ABNORMAL) HGA1C W/EAG (04/22/2024 9:52 AM EST) HEMOGLOBIN A1C 5.7(H) <5.7 % of total Hgb Info [facility] Comment: For someone without known diabetes, a [...] diabetes for children. EAG (MG/DL) 117 mg/dL Info [facility] EAG (MMOL/L) 6.5 mmol/L [facility] Blood Blood / Unknown 04/22/2024 9 :52 AM EST 04/22/2024 9:52 AM EST Narrative [email or web address] [facility] - 04/23/2024 7:27 AM EST FASTING:YES Deliv Esperanza VELASQUEZ LAB - BLOOD DRAW Final Result Performing Organization Address City/[facility]/ZIP Co de Phone Number [employer] [facility] [address] [address], [employer] [address] [address] * TSH W/RFLX FREE T4 (04/22/2024 9:52 AM EST) TSH W/REFLEX TO FT4 2.52 0.40 - 4.50 mIU/L [facility] Blood Blood / Unknown 04/22/2024 9 :52 AM EST 04/22/2024 9:52 AM EST Narrative [email or web address] [facility] - 04/23/2024 7:27 AM EST FASTING:YES Deliv Esperanza VELASQUEZ LAB - BLOOD DRAW Edited Resul t - Final Performing Organization Address City/[facility]/ZIP Co de Phone Number [email or web address] [address] [address], [employer] [address] [address] * LIPIDS W RFLX TO DIRECT LDL (04/22/2024 9:52 AM EST) [facility] CHOLESTEROL, TOTAL 181 <200 mg/dL [facility] HDL CHOLESTEROL 81 > OR = 50 mg/dL [facility] TRIGLYCERIDES 46 <150 mg/dL [facility] LDL-CHOLESTEROL 86 99 mg/dL (calc) [facility] Comment: Reference range: <100 Desirable range <100 mg/dL for primary prevention; ?? <70 mg/dL for patients with CHD or diabetic patients with > or = 2 CHD risk factors. LDL-C is now calculated using the Carter calculation, which is a validated novel method providing better accuracy than the Friedewald equation in the estimation of LDL-C. London SS et al. LEÓN. 2013;310(19): 1948-1392 (http://education.[employer]/faq/HVU263) CHOL/HDLC RATIO 2.2 <5.0 (calc) [facility] NON-HDL CHOLESTEROL 100 <130 mg/dL (calc) [facility] Comment: For patients with diabetes plus 1 major ASCVD risk factor, treating to a non-HDL-C goal of <100 mg/dL (LDL-C of <70 mg/dL) is considered a therapeutic option. Blood Blood / Unknown 04/22/2024 9 :52 AM EST 04/22/2024 9:52 AM EST Narrative [facility] - 04/23/2024 7:27 AM EST FASTING:YES Esperanza Santos [facility] LAB - BLOOD DRAW Final Result [facility] [address] [address], [facility] [address] [place] [address] * BLOOD COUNT COMPLETE AUTO&AUTO DIFRNTL WBC (04/22/2024 9:52 AM EST) [facility] WHITE BLOOD CELL COUNT 4.5 3.8 - 10.8 Thousand/ uL [facility] RED BLOOD CELL COUNT 4.96 3.80 - 5.10 Million/u L [facility] HEMOGLOBIN 14.1 11.7 - 15.5 g/dL [facility] HEMATOCRIT 43.2 35.0 - 45.0 % [facility] MCV 87.1 80.0 - 100.0 fL [facility] MCH 28.4 27.0 - 33.0 pg [facility] MCHC 32.6 32.0 - 36.0 g/dL [facility] Comment: For adults, a slight decrease in the calculated MCHC value (in the range of 30 to 32 g/dL) is most likely not clinically significant; however, it should be interpreted with caution in correlation with other red cell parameters and the patient's clinical condition. RDW 13.3 11.0 - 15.0 % [facility] PLATELET COUNT 195 140 - 400 Thousand/ uL [facility] MPV 11.0 7.5 - 12.5 fL [facility] ABSOLUTE NEUTROPHILS 2,543 1,500 - 7,800 cells/uL [facility] ABSOLUTE LYMPHOCYTES 1,526 850 - 3,900 cells/uL [facility] ABSOLUTE MONOCYTES 342 200 - 950 cells/uL [facility] ABSOLUTE EOSINOPHILS 50 15 - 500 cells/uL [facility] ABSOLUTE BASOPHILS 41 0 - 200 cells/uL [facility] NEUTROPHILS PCT 56.5 % [employer] [facility] LYMPHOCYTES 33.9 % [facility] AGNK[employer] [facility] MONOCYTES 7.6 % [facility] [employer] [facility] EOSINOPHILS 1.1 % [facility] [employer] [facility] BASOPHILS 0.9 % BIO-NEMSG [employer] [facility] Blood Blood / Unknown 04/22/2024 9 :52 AM EST 04/22/2024 9:52 AM EST Narrative [email or web address] [facility] - 04/23/2024 7:27 AM EST FASTING:YES Esperanza VELASQUEZ LAB - BLOOD DRAW Edited Resul t - Final [email or web address] [facility] [address] [address], Info [facility] [address] [place] [address] * (ABNORMAL) COMPREHENSIVE METABOLIC PANEL (04/22/2024 9:52 AM EST) GLUCOSE 88 65 - 99 mg/dL [facility] Comment: ?Fasting reference interval UREA NITROGEN (BUN) 14 7 - 25 mg/dL [facility] CREATININE (blood) 0.56 0.50 - 1.05 mg/dL [facility] EGFR 102 > OR = 60 mL/min/1. 73m2 [facility] BUN/CREATININE RATIO SEE NOTE: [facility] Comment: ?? Not Reported: BUN and Creatinine are within ?? reference range. ? SODIUM 141 135 - 146 mmol/L [facility] POTASSIUM 4.6 3.5 - 5.3 mmol/L [facility] CHLORIDE 103 98 - 110 mmol/L [facility] CARBON DIOXIDE 33(H) 20 - 32 mmol/L [facility] CALCIUM 9.4 8.6 - 10.4 mg/dL [facility] PROTEIN, TOTAL 7.5 6.1 - 8.1 g/dL [facility] ALBUMIN 4.5 3.6 - 5.1 g/dL [facility] GLOBULIN 3.0 1.9 - 3.7 g/dL (calc) [facility] ALBUMIN/GLOBULI N RATIO 1.5 1.0 - 2.5 (calc) [facility] BILIRUBIN, TOTAL 0.6 0.2 - 1.2 mg/dL [facility] ALKALINE PHOSPHATASE 83 37 - 153 U/L [facility] AST 20 10 - 35 U/L [facility] ALT 18 6 - 29 U/L [facility] Blood Blood / Unknown 04/22/2024 9 :52 AM EST 04/22/2024 9:52 AM EST Narrative [facility] - 04/23/2024 7:27 AM EST FASTING:YES Esperanza VELASQUEZ LAB - BLOOD DRAW Edited Resul t - Final [facility] [address] [address], [employer] [facility] [facility] [address] [place] [address] * COLOGUARD (05/06/2023 3:00 AM EST) Stool Stool specimen / Unknown 05/06/2023 3:00 AM EST Donna [facility] LAB BODY FLUIDS AND STOOLS AMBUL ATORY Final Result [employer] [address] [facility], [address] [facility] [id number] [place] [address], * PAP, LIQUID BASED (01/18/2020 4:26 PM EST) PAP negative NORMAL - ABNORMAL [facility] Cervix Cervix uteri structure / Unknown 01/18/2020 4:26 PM EST Impressions [facility] - 01/27/2020 12:39 PM EST Thinprep Pap,Imaged:Negative for squamous intraepithelial lesion and malignancy. Reactive cellular changes HPV:Negative Umm Fuentes [facility] - PATHOLOGY AND CYTOLOGY A MBULATORY Final Result Performing Organization Address City/[facility]/ZIP Co de Phone Number [facility] [address] [place] [address], * PAP SMEAR W/HPV (01/18/2020 1:00 AM EST) Pathologist [facility] PAP SMEAR INTERPRETATION NORMAL NORMAL [facility] HPV (HUMAN PAPILLOMA) NEGATIVE NEGATIVE [facility] HPV TYPE 16 NEGATIVE NEGATIVE [facility] HPV TYPE 18 NEGATIVE NEGATIVE [facility] Swab 01/18/2020 1:00 AM EST Impressions [facility] - 01/18/2020 4:00 AM EST ThinPrep pap,imaged:Negative for squamous intraepithelial lesion and malignancy. Reactive cellular changes. HPV:Negative. Provider [facility] - PATHOLOGY AND CYTOLOGY AMB ULATORY Final Result Performing Organization Address City/[facility]/ZIP Co de Phone Number [facility] [address] [place] [address], * (ABNORMAL) HEPATITIS A,B,C PANEL (05/11/2018 11:58 AM EDT) HEPATITIS B SURFACE ANTIBODY NEGATIVE NEGATIVE [facility] HEPATITIS B SURFACE ANTIGEN NEGATIVE NEGATIVE [facility] Comment: Over the counter supplements containing high doses of biotin may interfere with this assay. ??If interference is suspected, patients shoud be retested after refraining from biotin supplements for 72 hours. HEPATITIS C VIRUS DIAGNOSTIC NEGATIVE NEGATIVE [facility] HEPATITIS B CORE ANTIBODY NEGATIVE NEGATIVE [facility] HEPATITIS A ANTIBODY TOTAL POSITIVE(A) NEGATIVE [facility] Comment: Over the counter supplements containing high doses of biotin may interfere with this assay. ??If interference is suspected, patients shoud be retested after refraining from biotin supplements for 72 hours. Blood specimen (specimen) Blood / Unknown 05/11/2018 11:58 AM EDT 05/11/2018 12:03 PM EDT [facility] - 05/11/2018 7:42 PM EDT [employer], [place] [address] Technology Training Associate - Jazmín Johnston MD PT ID [id number] ORD# [id number] Merry Prescott NP LAB - BLOOD DRAW Edited Res ult - Final Performing Organization Address City/State/[facility] [place] [address], * HIV-1 & HIV-2 ANTIBODIES (05/11/2018 11:58 AM EDT) HIV 1 AND 2 ANTIBODY SCREEN NEGATIVE NEGATIVE [facility] Comment: This assay is a 4th generation [...] 11:58 AM EDT 05/11/2018 12:03 PM EDT [facility] - 05/11/2018 8:11 PM EDT [employer], a member of [address] [address] Technology Training Associate - Jazmín Johnston MD PT ID [id number] ORD# [id number] Merry Prescott [facility] - BLOOD DRAW Final Resu lt [facility] [address] [place] [address], from Last 3 Months or Most Recently Relevant to Health Maintenance Insurance [employer] Member Subscriber Plan / Payer (Ef fective 2024-Present) Name:Penny Botello Relation to Subscriber:Self Name:Penny Botello Payer ID:[id number] Group ID:Not on file Type:Indemnity Address: [address] [place] [id number] Care Teams Experience Specialist Relationship Specialty Start Date End Date Umm Fuentes FNP [address] [place] [address] PCP - General Internal Medicine 07/11/19
--- OUTSIDE RECORDS SUMMARY | 2024-07-18 14:43 | XMS_ITS | Clinical Summary ---
Author Organization [facility] Address [address] [place] [address] Phone Care Team Providers Care Rn Urgent Care Name Role Phone Umm Fuentes MARIANA Primary Care Provider [phone] Encounters Date Type Department Care Team Description 06/07/2024 2:49 PM EDT - 06/07/2024 11:59 PM EDT Hospital [facility] [address] [address] Encounter for screening mammogram for [...] DX:Vitamin D deficiency Type 2 diabetes mellitus (CM S/HCC V24, CMS/HCC V28) DX:Type 2 diabetes mellitus (HCC) Family History [...] 05/31/2024 9: 49 AM EDT Obstetrics History Para Term AB [...] Blood Sugar Control Test (HGBA1C) 10/20/2024 04/22/2024 Depression Screening 04/22/2025 04/22/2024 Diabetes: Annual GFR (Glomerular Filtration Rate) 04/22/2025 04/22/2024 Hypertension/CHF/CAD Annual BMP Blood Test 04/22/2025 04/22/2024 Colorectal Cancer Screening: FIT-DNA (Cologuard) 05/05/2026 05/06/2023 Breast Cancer Screening 06/07/2026 06/08/19 25, 04/10/2023, 04/07/2022, Additional history exists DTaP,Tdap,and Td Vaccines (2 - Td or [...] Procedure Name Priority Date/Time Associated Diagnosis Comments MG MAMMO DIGITAL SCREENING W SKIP BILAT Routine 06/07/2024 3:15 PM EDT Encounter for screening mammogram for malignant neoplasm of breast from Last 3 Months Results * MG Mammo Digital Screening w Skip bilat (06/07/2024 3:15 PM EDT) Anatomical Region Laterality Modality Breast Bilateral Mammography 06/08/2024 11:4 1 AM EDT Impressions 06/08/2024 11:46 AM EDT No mammographic evidence of malignancy. A negative mammogram in the presence of a clinically suspicious palpable abnormality does not preclude the possibility of malignancy or alter the indications for biopsy. PQRI CPT II 3342F Code 23023, 46095 PQRI 225 CPT II 7025F TISSUE DENSITY: The breasts are almost entirely fatty. (BI-RADS ??Category A) IMPRESSION: Benign. BI-RADS CATEGORY: 2 - BENIGN RECOMMENDATION: Screening bilateral mammogram is recommended in 1 year. Mammo Location: [facility], [address] [place] [address] -------- FINAL REPORT -------- Dictated By: Jason Hilario Dictated Date: 06/08/2024 11:41 ET Assigned Physician: Jason Hilario Reviewed and Electronically Signed By: Jason Hilario Signed Date: 06/08/2024 11:46 ET Workstation ID: [id number] Transcribed By: Self Edit Transcribed Date: 06/08/2024 11:41 ET Narrative 06/08/2024 11:46 AM EDT CLINICAL: The patient is a 64 years Female presenting for routine screening mammography. COMPARISON: Most recently 04/10/2023 and most remotely 06/21/2018. ?? TECHNIQUE: Full-field digital mammography of the breasts bilaterally consisting of tomosynthesis in MLO and CC projection is performed in the [employer] 2000-D unit. ??Computer aided detection utilizing the iCAD system was utilized. FINDINGS: The breasts are largely fatty replaced. ??Bilateral benign punctate, rim, and secretory calcifications are again demonstrated. ??There is no suspicious cluster of microcalcifications, mass, or area of architectural distortion. There is no skin thickening or nipple retraction. Procedure Note Jason Hilario MD - 06/08/2024 CLINICAL: The patient is a 64 years Female presenting for routinescreening mammography. COMPARISON: Most recently 04/10/2023 and most remotely 06/21/2018. TECHNIQUE: Full-field digital mammography of the breasts bilaterallyconsisting of tomosynthesis in MLO and CC projection is performed in the[employer] 2000-D unit. Computer aided detection utilizing the Ret[employer]ystem was utilized. FINDINGS: The breasts are largely fatty replaced. Bilateral benignpunctate, rim, and secretory calcifications are again demonstrated. Thereis no suspicious cluster of microcalcifications, mass, or area ofarchitectural distortion. There is no skin thickening or nippleretraction. IMPRESSION: No mammographic evidence of malignancy. A negative mammogram in the presence of a clinically suspicious palpableabnormality does not preclude the possibility of malignancy or alter theindications for biopsy. PQRI CPT II 3342F Code 37871, 88394 PQRI 225 CPT II 7025F TISSUE DENSITY: The breasts are almost entirely fatty. (BI-RADS CategoryA) IMPRESSION: Benign. BI-RADS CATEGORY: 2 - BENIGN RECOMMENDATION: Screening bilateral mammogram is recommended in 1 year. Mammo Location: [facility] [place], [address] [place] [address] -------- FINAL REPORT -------- Dictated By: Jason Hilario Dictated Date: 06/08/2024 11:41 ET Assigned Physician: Jason Hilario Reviewed and Electronically Signed By: Jason Hilario Signed Date: 06/08/2024 11:46 ET Workstation ID: [id number] Transcribed By: Self Edit Transcribed Date: 06/08/2024 11:41 ET Esperanza Sarayad VP [employer] IMG BI PROCEDURES Final Resul t from Last 3 Months Insurance [phone] [place] [address] [address] [place] [address] Care Teams Rn Urgent Care Relationship Specialty Start Date End Date Umm Fuentes NP [address] [place] [id number] PCP - General Nurse Practitioner 05/09/24
--- NOTE | 2024-07-18 15:03 | MHC.NURWM ---
Intake Intake Visit Reasons: (OV) PO LSG 11/01/20 *GLP-1* Allergies oxycodone [From Percocet] Adverse Reaction (Intermediate, Verified 06/06/24 12:57) Nausea and Vomiting Coding
--- NOTE | 2024-07-18 15:08 | A.OFFVIS_ITS ---
VS Expanded 07/18/24 15:13 BP 130/60 Blood Pressure Location Rt brachial Blood Pressure Position Sitting Pulse 54 Pulse Source Pulse Oximeter Temp 97.8 F Temperature Source Temporal Artery Scan Pulse Oximetry 99 Oxygen Delivery Method Room Air Height 5 ft 4.5 in Weight 184 lb 9.6 oz BMI 31.2 Body Fat % 37.8 Body Fat Mass 69.6 Fat Free Mass 114.8 Visceral Fat Rating 10.0 Body Water % 44.0 Body Water Mass 81.2 Muscle Mass/Score 109.2 Basal Metabolic Rate/Score 1,559 Intake Visit Reasons: (OV) PO LSG 11/01/20 *GLP-1* Hybrid Tester Required: No Allergies oxycodone [From Percocet] Adverse Reaction (Intermediate, Verified 07/18/24 15:08) Nausea and Vomiting Medication List - Last Reconciled 07/18/24 by HONG Davis calcium citrate-vitamin D3 315 mg-5 mcg (200 unit) (Calcium Citrate + D) 1 tab PO BID docusate sodium (Colace) 100 mg PO DAILY levothyroxine 1 tab PO DAILY mirabegron ER 50 mg PO DAILY yudgqznsvnaf-zua-jhhc-FA-vit K 45 mg iron- 800 mcg-120 mcg (Bariatric Multivitamins) 1 cap PO DAILY vitamin A palmitate 3,000 mcg PO DAILY HPI Comments Details: The patient is a 64-year-old female who returns to the office today in follow- up. She is status post sleeve gastrectomy performed on 11/01/2020 and panniculec naldo performed on 08/21/2022. She was previously last seen in the office on 11/27/2022 with a weight of 162 lb and a BMI of 27.4. She presented to the office on 06/06/2024 with a weight of 182.8 lb with a BMI of 30.9. Weight today is 184.6 lb with a BMI of 31.2. She has gained 1.8 lb since last being seen. Taking celebrate mvi and nicol + D. She wishes to start a new meal plan. She has not been following the meal plan exactly. Often skipping second shake, would like to use Pure Protein bar instead of second shake. meal plan: waking at 07:00 in bed around 23:00 8-10 shake, Premier protein powder, 1 scoop mixed in 8 oz of unsweetened almond milk 12 Jamaican yogurt 2-4 another shake 5 pm meal with 6 forks of protein and 6 forks of vegetables Drinking 48 oz water Exercise plan: video 30 min at home 3 x per week [facility] Medical History Postgastrectomy malabsorption Steatosis, liver GERD (gastroesophageal reflux disease) COVID-19 COVID-19 vaccine series completed DJD (degenerative joint disease) Hypothyroidism Hypertension Non-insulin dependent diabetes mellitus Morbid obesity Surgical History History of sleeve gastrectomy History of tubal ligation Hx of tonsillectomy Hx of knee surgery Hx of colonoscopy Hx of section Family History Mother No problems noted. Father No problems noted. Sister No problems noted. Sister No problems noted. Brother No problems noted. Brother No problems noted. Son No problems noted. Daughter Diabetes Obesity Daughter No problems noted. Social History Household Members: Other Household Members Other:: daughter Housing: Apartment Are you a primary progressive care manager to a significant other at home: No Do you presently have visiting nurse or other home services: No Alcohol intake: current Alcohol intake frequency: holidays/special occasions only Patient Tobacco Use Status: Never used Tobacco service: No Current occupational status: employed Physical Exam Const General: healthy appearing and no acute distress Resp Effort & Inspection: normal respiratory effort Auscultation: clear to auscultation bilaterally Cardio Rate: regular rate Rhythm: regular rhythm GI Auscultation: normal bowel sounds Extrem General: Yes normal to inspection Assessment & Plan Assessment & Plan (1) S/P laparoscopic sleeve gastrectomy: Code(s): Z98.84 - Bariatric surgery status Category: Surgical Plan: Patient is not snacking however not following the meal plan and is often skipping the 2nd shake. She would like to incorporate a pure protein bar inste ad of the 2nd shake. We will make adjustments accordingly: waking at 07:00 in bed around 23:00 8-10 shake, Premier protein powder, 1 scoop mixed in 8 oz of unsweetened almond milk 12 Jamaican yogurt 2-4 3/4 pure protein bar 5 pm meal with 6 forks of protein and 6 forks of vegetables Encouraged to exercise daily and track calories burned. Encouraged to text weights weekly and text with any questions or concerns
[2024-07-18 15:13] VITALS: BP 130/60; PULSE 54; TEMP 36.6; O2SAT 99; BMI 31.2
== END 2024-07-18 15:28 | disposition home or self-care (01) ==
LOC: HO.HBS 14:40
PROVIDERS: PCP Nurse Practitioner Family; Visit Provider Physician Assistant Surgical
DX: E66.9 Obesity, unspecified (principal); E66.811 Obesity, class 1; Z68.31 Body mass index [BMI] 31.0-31.9, adult; Z98.84 Bariatric surgery status
CPT/HCPCS: 99213

== ENCOUNTER 2024-09-16 15:07 | Outpatient (AMB) | payer OTHER, SELFPAY ==
--- OUTSIDE RECORDS SUMMARY | 2023-04-19 08:27 | XMS_ITS | Continuity of Care Document ---
Author Organization [facility] Address [address] [place] [address] Phone Care Team Providers Care Tobacco Packer Name Role Phone Celio Brown MD Unavailable Unavailable Allergies, Adverse Reactions, Alerts Substance Reaction Status Criticality ciprofloxacin Active No Information Medications Medication Instructions Dosage Effective Dates (start - stop) Status Comments erythromycin 5 mg/gram (0.5 %) eye ointment - Active baclofen 10 mg tablet TAKE 1 TABLET BY MOUTH AT BEDTIME NEEDED - Active diclofenac sodium 75 mg tablet,delayed release TAKE 1 TABLET BY MOUTH TWICE DAILY NEEDED - Active levothyroxine 75 mcg tablet - Active amlodipine 10 mg tablet - Ac tive losartan 100 mg tablet - Act surjit cetirizine 10 mg tablet - Ac tive Procedures Procedure Date 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 [address], [place], [id number] , [place]. tel:[phone] [facility], [address], [place], [id number] , [place] tel: [phone] [facility] Office corneal abrasion (chief complaint) Unspecified acute conjunctivitis, left eyePunctate keratitis, bilateralSjogren syndrome with keratoconjunctivitis 3 Kevin Pickens. [address] [place], [id number] , [place]. tel: [phone] Referring Provider: Celio Brown MD, [address] [place], [address] . tel:[phone] Family History Family Member Type Diagnosis Age At Onset No Information Payers Payer name Insurance type Covered green party ID Lupillo kovacs(s) Joan CI [id number] Social History Type Description Quantity Date Captured Comments Sex Female Smoking Status No Information Chief Complaint And Reason For Visit No Information Reason For Referral Reason For Referral No Information Plan Of Treatment Date Type Action Status Patient Education [facility] completed History Of Present Illness Encounter Date Complaint History Of Prese nt Illness corneal abrasion The 62 year old patient presents for evaluation of corneal abrasion in the left eye. Pt reports having minor pain starting Thursday. Gradually worsening and visited urgent care Thursday. Told had corneal abrasion, given erythromycin elizabeth BID OS. States pain and improved. C/o blurriness and light sensitivity.Hx of dry eyes, uses otc tears prn and Hx of plugs OU. Functional Status Date Functional Assessmen t No Information Instructions Date Instruction Additional Infor mation Return in [address] Brown for Refract/Dilate Related to Punctate keratitis, bilateral Impression/Plan Related to Sjogr en syndrome with keratoconjunctivitis Impression/Plan Related to Unspe cified acute conjunctivitis, left eye Impression/Plan Related to Punct ate keratitis, bilateral Assessments Type Assessment Date No Information Patient Care Teams Name Effective Dates (start - stop) Status Members No Information
--- OUTSIDE RECORDS SUMMARY | 2024-09-16 15:09 | XMS_ITS | Clinical Summary ---
Author Organization [facility] Address [address] [place] [address] Phone Care Team Providers Care Movie Theater Usher Name Role Phone Umm Fuentes MARIANA Primary Care Provider [phone] Immunizations Name Administration Dates Next Due Moderna [...] Blood Sugar Control Test (HGBA1C) 10/20/2024 04/22/2024 Influenza Vaccine (#1) 2024 , 01/30/2023, 11/15/2020, Additional history exists Depression Screening 04/22/2025 04/22/2024 [...] Completed 11/08/2023, 03/2022, 06/14/2021, Additional history exists HIB Vaccines Aged Out [...] Recently Relevant to Health Maintenance Results * MG Mammo Digital Screening w [...] for biopsy. PQRI CPT II 3342F Code 99218, 54394 PQRI 225 CPT II 7025F TISSUE DENSITY: The breasts are almost entirely fatty. (BI-RADS Category A) IMPRESSION: Benign. BI-RADS CATEGORY: 2 - BENIGN RECOMMENDATION: Screening bilateral mammogram is recommended in 1 year. [facility]amm[facility] Location: [facility] [address] [place] [address] -------- FINAL REPORT -------- Dictated By: Jason Hilario Dictated Date: 06/08/2024 11:41 ET Assigned Physician: Jason Hilario Reviewed and Electronically Signed By: Jsaon Hilario Signed Date: 06/08/2024 11:46 ET Workstation ID: [id number] Transcribed By: Self Edit Transcribed Date: 06/08/2024 11:41 ET Narrative 06/08/2024 11:46 AM EDT CLINICAL: The patient is a 64 years Female presenting for routine screening mammography. COMPARISON: Most recently 04/10/2023 and most remotely 06/21/2018. TECHNIQUE: Full-field digital mammography of the breasts bilaterally consisting of tomosynthesis in MLO and CC projection is performed in the HandUp PBCe 2000-D unit. Computer aided detection utilizing the iCAD system was utilized. FINDINGS: The breasts are largely fatty replaced. Bilateral benign punctate, rim, and secretory calcifications are again demonstrated. There is no suspicious cluster of microcalcifications, [...] MLO and CC projection is performed in theSoleil Insulation 2000-D unit. Computer aided detection utilizing the iCADsystem was utilized. FINDINGS: The breasts are largely [...] for biopsy. PQRI CPT II 3342F Code 90703, 10380 PQRI 225 CPT II 7025F TISSUE DENSITY: The breasts are almost entirely fatty. (BI-RADS CategoryA) IMPRESSION: Benign. BI-RADS CATEGORY: 2 - BENIGN RECOMMENDATION: Screening bilateral mammogram is recommended in 1 year. Mammo Location: , [facility], [address] [place] [address] -------- FINAL REPORT -------- Dictated By: Jason Hilario Dictated Date: 06/08/2024 11:41 ET Assigned Physician: Jason Hilario Reviewed and Electronically Signed By: Jason Hilario Signed Date: 06/08/2024 11:46 ET Workstation ID: [id number] Transcribed By: Self Edit Transcribed Date: 06/08/2024 11:41 ET Esperanza Santos BIOMEDICAL SPECIALIST IMG BI PROCEDURES Final Resul t from Last 3 Months or Most Recently Relevant to Health Maintenance Insurance [facility] Care Teams Movie Theater Usher Relationship Specialty Start Date End Date Umm Fuentes NP [address] [place] [address] PCP - General Nurse Practitioner 05/09/24
--- OUTSIDE RECORDS SUMMARY | 2024-09-16 15:09 | XMS_ITS | Clinical Summary ---
Author Organization [facility] Address [address] [place] [address] Care Team Providers Care Professor Of Floriculture Name Role Phone Umm Fuentes [facility] Primary Care Provider [phone] Source Comments PLEASE NOTE, if this patient [...] fasciitis of left foot 05/14/2018 Overview (05/14/2018): [facility] was on 09/25/2017 Venous insufficiency 05/14/2018 Obesity due to excess calories 05/14/2018 Calcaneal spur of left foot 05/14/2018 H/O mammogram 05/14/2018 Overview (05/14/2018): Normal mammogram 08/2017. Due 08/2018. 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 Resolved Problems Problem Noted Date Diagnosed Date Resolved Date Essential hypertension 08/16/201903/25 Type 2 diabetes mellitus ([facility]) 05/12/2018 03/25/2021 Encounters Date Type Department Care Team Description 06/22/2024 3:40 PM EDT Office Visit [facility] [address] [place] [address] Awilda Coleman DDS from Last 3 Months Immunizations Immunization Administration [...] 64 04/22/2024 9:05 AM EST Temperature 36.9 C (98.4 F) 04/22/2024 9:05 AM EST Respiratory Rate 16 04/22/2024 9:05 AM EST Oxygen Saturation 98% 04/22/2024 9:05 AM EST Inhaled Oxygen Concentration - - Weight 83.5 kg (184 lb) 04/22/2024 9:05 AM EST Height 167.6 cm (5' 6 ) 04/22/2024 9:05 AM EST Body Mass Index 29.7 04/22/2024 9:05 AM EST Plan of Treatment Upcoming Encounters Date Type Department Care Team (Late st Contact Info) Description 10/05/2024 3:00 PM EDT Office Visit [facility] [address] [place] [phone] Awilda Coleman, DDS [address] [place], [place] [phone] 11/08/2024 3:40 PM EDT Office Visit [facility] [address] [place] [phone] Jadiel Angelo, RD [address] [place], [place] [phone] Health Maintenance Due Date Last Done Comments Anxiety Screening 1960 CT Colonography 2005 Colonoscopy 2005 Flexible Sigmoidoscopy 2005 Imm-Pneumococcal 50+ (1 of 1 - PCV) 2010 FIT/gFOBT 05/05/2024 05/06/2023 Imm-Influenza (#1) 2024 11/08/2023, 1 04/02/2022, 11/15/2020, Additional history exists Cervical Cancer Screening 01/17/2025 HPV Screening 01/17/2025 [...] 024 Dental Prophy 05/04/2025 05/02/2024, 08/30, 03/14/2023 Colorectal Cancer Screening 05/19/2026 Fecal DNA 05/19/2026 05/20/2023, 05/06/2023 Breast Cancer Screening (Mammogram) 06/07/2026 06/07/2024, 06/07/2024, 04/10/2023, Additional history exists Imm-DTaP/Tdap/Td (2 - Td or Tdap) 05/11/2028 019 Dental FMX/Pano 10/24/2028 10/23/2023 Lipid Screening 04/22/2029 04/22/2024, 08/2023, 03/15/2021, Additional history exists HIV Screening Completed 05/11/2018 Hepatitis C Screening Completed 05/11/2018 Imm-Zoster, Recombinant Completed 02/15/2020, 01/16 [id number] Completed 11/08/2023, 03/2022, 06/14/2021, Additional history exists Alcohol and Drug Screen Completed 04/22/19, 10/02/2023, 10/08/2021, Additional history exists Depression Annual Screen Completed 04/22/2024 Cervical Ablation/Cold-Knife Conization Discontinued Cervical Cryotherapy Discontinued Colposcopy Discontinued Endometrial Biopsy Discontinued Excision/Leep Discontinued HPV Genotyping Discontinued Vaginal Pap Discontinued Vulvoscopy Discontinued Procedures Procedure Name Priority Date/Time Associated Diagnosis Comments OTHER ORDERS SCANNED DOCUMENT 09/14/2024 3:00 AM EDT REFERRAL SCANNED DOCUMENT 07/18/2024 3:00 AM EDT CASE PRESENTATION SUBS DTL & EXTENSIVE TX PLN Routine 06/22/2024 3:40 PM EDT Partial edentulism, unspecified edentulism class REMOVABLE PARTIAL DENTURE - INITIAL IMPRESSIONS Routine 06/22/2024 3:40 PM EDT Partial edentulism, unspecified edentulism class REFERRAL FOR MAMMOGRAM Routine 06/07/2024 3:00 AM EDT Encounter for screening mammogram for malignant neoplasm of breast COMP PERIODONTAL EVALUATION - NEW/EST PATIENT Routine 05/02/2024 3:40 PM EST Encounter for dental examination BITEWINGS - FOUR RADIOGRAPHIC IMAGES Routine 05/02/2024 3:40 PM EST Encounter for dental examination PROPHYLAXIS - ADULT Routine 05/02/2024 3 :40 PM EST Encounter for dental examination PERIODIC ORAL EVALUATION ESTABLISHED PATIENT Routine 05/02/2024 3:40 PM EST Encounter for dental examination TSH W/RFLX FREE T4 Routine 04/22/2024 9: 52 AM EST Hypothyroidism, unspecified type COMPREHENSIVE METABOLIC PANEL Routine 04/22/2024 9:52 AM EST Screening for endocrine disorder LIPIDS W RFLX TO DIRECT LDL Routine 04/22/2024 9:52 AM EST Screening for endocrine disorder PANORAMIC RADIOGRAPHIC IMAGE Routine 10/23/2023 3:40 PM [...] Recently Relevant to Health Maintenance Results * OTHER ORDERS SCANNED DOCUMENT (09/14/2024 3:00 AM EDT) 09/14/2024 3:00 AM EDT Andrade Curry THREADER OPERATOR SCAN OTHER ORDERS Final Result * REFERRAL SCANNED DOCUMENT (07/18/2024 3:00 AM EDT) 07/18/2024 3:00 AM EDT Umm Fuentes THREADER OPERATOR SCAN REFERRAL Final Result * REFERRAL FOR MAMMOGRAM SCREENING (06/07/2024 3:00 AM EDT) 06/07/2024 3:00 AM EDT us Esperanza Santos THREADER OPERATOR IMG RFL MAMMO Final Result * TSH W/RFLX FREE T4 (04/22/2024 9:52 AM EST) TSH W/REFLEX TO FT4 2.52 0.40 - 4.50 mIU/L [facility] Blood Blood / Unknown 04/22/2024 9 :52 AM EST 04/22/2024 9:52 AM EST Narrative [facility] - 04/23/2024 7:27 AM EST FASTING:YES us Esperanza Santos [facility] LAB - BLOOD DRAW Edited Resul t - Final [facility] [address] [address], [facility] [address] [address] * LIPIDS W RFLX TO DIRECT LDL (04/22/2024 9:52 AM EST) CHOLESTEROL, TOTAL 181 <200 mg/dL [facility] HDL CHOLESTEROL 81 > OR = 50 mg/dL [email or web address] TRIGLYCERIDES 46 <150 mg/dL [facility] LDL-CHOLESTEROL 86 99 mg/dL (calc) [facility] Comment: Reference range: <100 Desirable range <100 mg/dL for primary prevention; <70 mg/dL for patients with CHD or diabetic patients with > or = 2 CHD risk factors. LDL-C is now calculated using the Carter calculation, which is a validated novel method providing better accuracy than the Friedewald equation in the estimation of LDL-C. London SS et al. LEÓN. 2013;310(19): 3888-9985 (http://education.[employer]/faq/SLP665) CHOL/HDLC RATIO 2.2 <5.0 (calc) [email or web address] NON-HDL CHOLESTEROL 100 <130 mg/dL (calc) [email or web address] Comment: For patients with diabetes plus 1 major ASCVD risk factor, treating to a non-HDL-C goal of <100 mg/dL (LDL-C of <70 mg/dL) is considered a therapeutic option. Blood Blood / Unknown 04/22/2024 9 :52 AM EST 04/22/2024 9:52 AM EST Narrative [facility] - 04/23/2024 7:27 AM EST FASTING:YES Esperanza Tom THREADER OPERATOR LAB - BLOOD DRAW Final Result [facility] [address] [address], [facility] [address] [address] * (ABNORMAL) COMPREHENSIVE METABOLIC PANEL (04/22/2024 9:52 AM EST) Pathologist [facility] GLUCOSE 88 65 - 99 mg/dL [facility] Comment: Fasting reference interval UREA NITROGEN (BUN) 14 7 - 25 mg/dL [facility] CREATININE (blood) 0.56 0.50 - 1.05 mg/dL [facility] EGFR 102 > OR = 60 mL/min/1. 73m2 [facility] BUN/CREATININE RATIO SEE NOTE: [facility] Comment: Not Reported: BUN and Creatinine are within reference range. SODIUM 141 135 - 146 mmol/L [facility] POTASSIUM 4.6 3.5 - 5.3 mmol/L [email or web address] CHLORIDE 103 98 - 110 mmol/L [email or web address] CARBON DIOXIDE 33(H) 20 - 32 mmol/L [email or web address] CALCIUM 9.4 8.6 - 10.4 mg/dL [email or web address] PROTEIN, TOTAL 7.5 6.1 - 8.1 g/dL [email or web address] ALBUMIN 4.5 3.6 - 5.1 g/dL [email or web address] GLOBULIN 3.0 1.9 - 3.7 g/dL (calc) [facility] ALBUMIN/GLOBULI N RATIO 1.5 1.0 - 2.5 (calc) [facility] BILIRUBIN, TOTAL 0.6 0.2 - 1.2 mg/dL [facility] ALKALINE PHOSPHATASE 83 37 - 153 U/L [facility] AST 20 10 - 35 U/L [facility] ALT 18 6 - 29 U/L [facility] Blood Blood / Unknown 04/22/2024 9 :52 AM EST 04/22/2024 9:52 AM EST Narrative [facility] - 04/23/2024 7:27 AM EST FASTING:YES Esperanza BROWNP LAB - BLOOD DRAW Edited Resul t - Final Performing Organization Address [facility]/ZIP Co de Phone Number [facility] [address] [address], [facility] [address] [address] * COLOGUARD (05/06/2023 3:00 AM EST) Stool Stool specimen / Unknown 05/06/2023 3:00 AM EST Donna [facility] BODY FLUIDS AND STOOLS AMBUL ATORY Final Result Performing Organization Address [facility]/ZIP Co de Phone Number [facility] [address] [place] [address], [address] [facility] [id number] [place] [address], * PAP, LIQUID BASED (01/18/2020 4:26 PM EST) PAP negative NORMAL - ABNORMAL [facility] Cervix Cervix uteri structure / Unknown 01/18/2020 4:26 PM EST Impressions [facility] - 01/27/2020 12:39 PM EST Thinprep Pap,Imaged:Negative for squamous intraepithelial lesion and malignancy. Reactive cellular changes HPV:Negative Umm VELASQUEZ LAB - PATHOLOGY AND CYTOLOGY A MBULATORY Final Result Performing Organization Address [facility]/ZIP Co de Phone Number [facility] [address] [place] [address], * PAP SMEAR W/HPV (01/18/2020 1:00 AM EST) PAP SMEAR INTERPRETATION NORMAL NORMAL [facility] HPV (HUMAN PAPILLOMA) NEGATIVE NEGATIVE [facility] HPV TYPE 16 NEGATIVE NEGATIVE [facility] HPV TYPE 18 NEGATIVE NEGATIVE [facility] Swab 01/18/2020 1:00 AM EST Impressions [facility] - 01/18/2020 4:00 AM EST ThinPrep pap,imaged:Negative for squamous intraepithelial lesion and malignancy. Reactive cellular changes. HPV:Negative. us Provider [facility] - PATHOLOGY AND CYTOLOGY AMB ULATORY Final Result Performing Organization Address [facility] Co de Phone Number [facility] [address] [place] [address], * (ABNORMAL) HEPATITIS A,B,C PANEL (05/11/2018 11:58 AM EDT) HEPATITIS B SURFACE ANTIBODY NEGATIVE NEGATIVE [facility] HEPATITIS B SURFACE ANTIGEN NEGATIVE NEGATIVE [facility] Comment: Over the counter supplements containing high doses of biotin may interfere with this assay. If interference is suspected, patients shoud be retested after refraining from biotin supplements for 72 hours. HEPATITIS C VIRUS DIAGNOSTIC NEGATIVE NEGATIVE [facility] HEPATITIS B CORE ANTIBODY NEGATIVE NEGATIVE [facility] HEPATITIS A ANTIBODY TOTAL POSITIVE(A) NEGATIVE [facility] Comment: Over the counter supplements containing high doses of biotin may interfere with this assay. If interference is suspected, patients shoud be retested after refraining from biotin supplements for 72 hours. Blood specimen (specimen) Blood / Unknown 05/11/2018 11:58 AM EDT 05/11/2018 12:03 PM EDT Narrative [facility] - 05/11/2018 7:42 PM EDT [employer], a member of [address] [address] Assistant Product Manager - Jazmín Johnston MD PT ID [id number] ORD# [id number] Merry Prescott NP LAB - BLOOD DRAW Edited Res ult - Final Performing Organization Address City/[facility]/ZIP Co de Phone Number [address] [address], [place] [phone] * HIV-1 & HIV-2 ANTIBODIES (05/11/2018 11:58 AM EDT) [facility] HIV 1 AND 2 ANTIBODY SCREEN NEGATIVE NEGATIVE [facility] Comment: This assay is a 4th generation assay allowing for earlier detection of HIV infection by detecting the presence of the HIV-1 p24 antigen as well as the traditional antibodies to HIV type 1 (including group O) and type 2. Use of a 4th generation assay is the current CDC recommendation for HIV screening. Blood specimen (specimen) Blood / Unknown 05/11/2018 11:58 AM EDT 05/11/2018 12:03 PM EDT [facility] - 05/11/2018 8:11 PM EDT [facility] [employer], a member of [address] [address] Assistant Product Manager - Jazmín Johnston MD PT ID [id number] ORD# [id number] Merry Prescott NP LAB - BLOOD DRAW Final Resu lt Performing Organization Address [facility] Co de Phone Number [address] [address], [place] [phone] from Last 3 Months or Most Recently Relevant to Health Maintenance Insurance [employer]ENTAL ) Member Subscriber Plan / Payer (Ef fective 2024-Present) Name:Penny Botello Relation to Subscriber:Self Name:Penny Botello Payer ID:[id number] Group ID:Not on file Type:Indemnity Address: [address] [place] [address] Care Teams Professor Of Floriculture Relationship Specialty Start Date End Date Umm Fuentes FNP [address] [place] [address] PCP - General Internal Medicine 07/11/19
--- NOTE | 2024-09-16 15:10 | MHC.OFFVISWM ---
VS Expanded 09/16/24 15:27 BP 131/62 Blood Pressure Location Rt brachial Blood Pressure Position Sitting Pulse 62 Pulse Source Pulse Oximeter Temp 97.3 F Temperature Source Temporal Artery Scan Pulse Oximetry 95 Oxygen Delivery Method Room Air Height 5 ft 4.5 in Weight 178 lb 6.4 oz BMI 30.1 Body Fat % 35.4 Body Fat Mass 63.0 Fat Free Mass 115.4 Visceral Fat Rating 10.0 Body Water % 45.7 Body Water Mass 81.6 Muscle Mass/Score 109.6 Basal Metabolic Rate/Score 1,553 Intake Visit Reasons: (OV) PO LSG 11/01/20 *GLP-1* Certified Anesthesiologist Assistant Required: No Allergies oxycodone (From Percocet) Adverse Reaction (Intermediate, Verified 09/16/24 15:14) Nausea and Vomiting Medication List - Last Reconciled 09/16/24 by HONG Davis calcium citrate-vitamin D3 315 mg-5 mcg (200 unit) (Calcium Citrate + D) 1 tab PO BID docusate sodium (Colace) 100 mg PO DAILY levothyroxine 1 tab PO DAILY mirabegron ER 50 mg PO DAILY wucigceetivf-xda-nmgu-FA-vit K 45 mg iron- 800 mcg-120 mcg (Bariatric Multivitamins) 1 cap PO DAILY vitamin A palmitate 3,000 mcg PO DAILY HPI Comments Details: The patient is a 64-year-old female who returns to the office today in follow-up. She is status post sleeve gastrectomy performed on 11/01/2020 and panniculectomy performed on 08/21/2022. She was previously last seen in the office on 11/27/2022 with a weight of 162 lb and a BMI of 27.4. She presented to the office on 06/06/2024 with a weight of 182.8 lb with a BMI of 30.9. Weight today is 178.4 lb with a BMI of 30.2. She has lost 6.2 lb since last being seen. Taking celebrate mvi and nicol + D. She wishes to start a new meal plan. She has not been following the meal plan exactly. Often skipping second shake, would like to use Pure Protein bar instead of second shake. At her last visit, she wanted to change the meal plan and so we made adjustments accordingly. She states she has been following the meal plan. meal plan: waking at 07:00 in bed around 23:00 8-10 shake, Premier protein powder, 1 scoop mixed in 8 oz of unsweetened almond milk 12 [place] yogurt 2-4 3/4 pure protein bar 5 pm meal with 6 forks of protein and 6 forks of vegetables Drinking 48 oz water Exercise plan: walking outside 4-5 x per week, tries to go daily, 300-325 calories will consider gym membership [facility] Medical History Postgastrectomy malabsorption Steatosis, liver GERD (gastroesophageal reflux disease) COVID-19 COVID-19 vaccine series completed DJD (degenerative joint disease) Hypothyroidism Hypertension Non-insulin dependent diabetes mellitus Morbid obesity Surgical History History of sleeve gastrectomy History of tubal ligation Hx of tonsillectomy Hx of knee surgery Hx of colonoscopy Hx of section Family History Mother No problems noted. Father No problems noted. Sister No problems noted. Sister No problems noted. Brother No problems noted. Brother No problems noted. Son No problems noted. Daughter Diabetes Obesity Daughter No problems noted. Social History Household Members: Other Household Members Other:: daughter Housing: Apartment Are you a primary intensive care ambulance paramedic to a significant other at home: No Do you presently have visiting nurse or other home services: No Alcohol intake: current Alcohol intake frequency: holidays/special occasions only Patient Tobacco Use Status: Never used Tobacco service: No Current occupational status: employed Physical Exam Const General: healthy appearing and no acute distress Resp Effort & Inspection: normal respiratory effort Auscultation: clear to auscultation bilaterally Cardio Rate: regular rate Rhythm: regular rhythm GI Auscultation: normal bowel sounds Extrem General: Yes normal to inspection Assessment & Plan Assessment & Plan (1) S/P laparoscopic sleeve gastrectomy: Code(s): Z98.84 - Bariatric surgery status Category: Surgical Plan: Patient is now back on track, making improvements. Recommend increasing exercise for a goal of 300 calories or more burned daily. State of the importance of joining [employer] [facility] which she is going to consider. If she does go, utilizing weights for 20 minutes and then cardio for 40-45 minutes for a goal of burning 300 calories or more per day. She was advised to utilize the trainers there if she is unfamiliar with the machines. Encouraged to continue to text with any questions or concerns. We will have her return to the office in approximately 1 month.
[2024-09-16 15:27] VITALS: BP 131/62; PULSE 62; TEMP 36.3; O2SAT 95; BMI 30.1
== END 2024-09-16 15:28 | disposition home or self-care (01) ==
LOC: HO.HBS 15:08
PROVIDERS: PCP Nurse Practitioner Family; Visit Provider Physician Assistant Surgical
DX: E66.9 Obesity, unspecified (principal); Z68.30 Body mass index [BMI] 30.0-30.9, adult; Z90.3 Acquired absence of stomach [part of]; Z98.84 Bariatric surgery status
CPT/HCPCS: 99213; G2211